=== PATIENT | female | born 1975 | race Caucasian/White ===

== ENCOUNTER 2016-08-20 05:49 | Day surgery (SDC) | payer OTHER ==
[2016-08-20] MEDS ORDERED: Lactated Ringers 1,000 ML IV SCH (06:30)
[2016-08-20] MEDS ORDERED: Zofran 4 MG/2 ML VIAL ONE (07:35)
[2016-08-20] MEDS ORDERED: DIPRIVAN 200 MG/20 ML IV ONE (08:00)
[2016-08-20] MEDS ORDERED: Ketamine HCl 50 MG/ML IJ ONE (08:00)
--- NOTE | 2016-08-20 08:22 | OP ---
SURGERY DATE: 08/20/16 SURGERY TIME: 713 PREOPERATIVE DIAGNOSIS: 1. GASTROESOPHAGEAL REFLUX STATUS POST GASTRIC BYPASS. POSTOPERATIVE DIAGNOSIS: 1. MODERATE GASTRITIS IN THE GASTRIC REMNANT. PROCEDURE: 1. Esophagogastroduodenoscopy with biopsy. SURGEON: Dr. Moore. ANESTHESIA: MAC, medications given by the Anesthesia Department. BRIEF HISTORY: The patient is a 41 y/o WF who presents now with severe epigastric pain. She reports problems with reflux into her esophagus as well. The patient reports she previously had an upper gastrointestinal endoscopy a few years ago at [facility] in [place] where a small ulcer was seen. The patient also reports having had gastric bypass surgery. The patient was felt to need to have endoscopic evaluation. She was appraised of the risks of the procedure including the risk of perforation, phlebitis, untoward reaction to medication, bleeding, and missed lesions. The patient verbalized her understanding and desired to have the procedure performed. DESCRIPTION OF PROCEDURE: The patient was given the medications by the Anesthesia Department. She had continuous pulse oximetry, ECG monitoring, intermittent BP monitoring, and end tidal CO2 monitoring during the examination. She was placed in the left lateral decubitus position. A bite block was placed and the flexible Olympus gastroscope was used to intubate the oropharynx. The esophagus was easily intubated and appeared to be normal throughout its length. The stomach was entered where there was a small gastric remnant pouch remaining. The scope was passed along into the duodenum which appeared to be normal. The scope was retroflexed and no significant hiatal hernia was noted. The scope was then redirected towards the gastric remnant and biopsies were obtained to rule out the presence of Helicobacter pylori type organisms. The scope was then removed from the patient who tolerated the procedure well and was sent back to outpatient recovery in good condition.
[2016-08-20 08:27] VITALS: BP 125/81; PULSE 72; O2SAT 99
== END 2016-08-20 08:30 | disposition home or self-care (01) ==
LOC: SDC 05:49
PROVIDERS: ATTEND Family Medicine
PROC: 0DB68ZX Excision of Stomach, Via Natural or Artificial Opening Endoscopic, Diagnostic (ICD-10-PCS; principal; 2016-08-20)
DX: K29.70 Gastritis, unspecified, without bleeding (principal); K21.9 Gastro-esophageal reflux disease without esophagitis; Z98.84 Bariatric surgery status
CPT/HCPCS: 00740; 36415; 88305; J2405; J2704

== ENCOUNTER 2016-10-18 09:51 | Emergency (ER) | payer OTHER ==
[2016-10-18] MEDS ORDERED: Hydromorphone 1 mg/ml Ampule IM ONE (10:52)
[2016-10-18] MEDS ORDERED: Phenergan 25 MG INJ IM ONE (10:53)
[2016-10-18] MEDS ORDERED: TORAdol 30 mg Injection IM ONE (10:54)
[2016-10-18] MEDS ORDERED: Phenergan 25 MG INJ ONE (11:01)
[2016-10-18] MEDS ORDERED: TORAdol 30 mg Injection ONE (11:01)
--- NOTE | 2016-10-18 11:01 | ERPHSYRPT ---
- History of Present Illness Time Seen by Provider: 10/18/16 10:45 Source: patient Exam Limitations: clinical condition Patient Subjective Stated Complaint: pt co increase pain to left side of back for last couple days. no injury noted, pt states she has taken roboxin,tylenol today, used heat last night Triage Nursing Assessment: pt alert and in no distress, resp easy, skin w/d, able to transfer from wc to bed Physician History: PATIENT WITH A HISTORY OF LOW BACK PAIN, COMPRESSION FRACTURE L-1, HAS CHRONIC LOW BACK PAIN, PROGRESSIVELY WORSE THE PAST 3-4 DAYS. DENIES INJURY OR TRAUMA, LOSS OF BOWEL OR BLADDER FUNCTION, NUMBNESS, TINGLING OR WEAKNESS IN EXTREMITIES. Timing/Duration: day(s) Method of Injury: unknown Quality: throbbing Back Pain Location: lumbar spine Severity of Pain-Max: severe Severity of Pain-Current: severe Modifying Factors: Improves With: movement Associated Symptoms: muscle spasms Previous symptoms: same symptoms as today Allergies/Adverse Reactions: latex Allergy (Severe, Verified 10/18/16 10:29) Hives Sulfa (Sulfonamide Antibiotics) [Sulfa(Sulfonamide Antibiotics)] Allergy ( Verified 10/18/16 10:29) PT STATES THIS AN ALLERGY BECAUSE OF EYE DROPS CAUSING IRRITATION-SHE HAS JUST TAKEN BACTRIM FOR UTI WITHOUT DIFFICULTY Home Medications: Alprazolam 1 mg [Xanax 1 mg] 2 mg PO HS 12/05/13 [History] Methocarbamol [Robaxin-750] 750 mg PO Q6H PRN 12/05/13 [History] Mirtazapine [Remeron] 45 mg PO HS 12/05/13 [History] Promethazine HCl 25 mg [Phenergan 25 mg] 25 mg PO Q4H PRN 12/05/13 [ History] Biot/Silicon/Cystein/Fish Poly [Haroldo R3 Extra Strength Tablet] 1 each PO DAILY 08/20/16 [History] Cetirizine HCl [Zyrtec] 10 mg PO DAILY 08/20/16 [History] Cholecalciferol (Vitamin D3) [D-2000] 5,000 unit PO DAILY 08/20/16 [History] Colchicine 0.6 mg PO DAILY 08/20/16 [History] Cyanocobalamin (Vitamin B-12) [Nascobal] 1 each NS WEEKLY 08/20/16 [History] Iron 65 mg PO DAILY 08/20/16 [History] Lisinopril 10 mg [Zestril 10 MG] 10 mg PO DAILY 08/20/16 [History] Hx Tetanus, Diphtheria Vaccination/Date Given: Yes Hx Influenza Vaccination/Date Given: No Hx Pneumococcal Vaccination/Date Given: No Immunizations Up to Date: Yes - Review of Systems Constitutional: No Fever, No Chills Eyes: No Symptoms Ears, Nose, & Throat: No Symptoms Respiratory: No Symptoms, No Cough, No Dyspnea Cardiac: No Symptoms, No Chest Pain, No Edema, No Syncope Abdominal/Gastrointestinal: No Symptoms, No Abdominal Pain, No Nausea, No Vomiting, No Diarrhea Genitourinary Symptoms: No Symptoms, No Dysuria Musculoskeletal: Back Pain, No Neck Pain Skin: No Symptoms, No Rash Neurological: No Dizziness, No Focal Weakness, No Sensory Changes Psychological: No Symptoms Endocrine: No Symptoms All Other Systems: Reviewed and Negative - Past Medical History Pertinent Past Medical History: Yes Neurological History: Migraines ENT History: No Pertinent History Cardiac History: Hypertension Respiratory History: No Pertinent History Endocrine Medical History: No Pertinent History Musculoskeletal History: No Pertinent History GI Medical History: Other History: No Pertinent History Psycho-Social History: Anxiety Female Reproductive Disorders: No Pertinent History Other Medical History: gastric bipass , states "backpain because of the heartburn" - Past Surgical History Past Surgical History: Yes Neuro Surgical History: No Pertinent History Cardiac: No Pertinent History Respiratory: No Pertinent History Gastrointestinal: Cholecystectomy, Other Genitourinary: No Pertinent History Musculoskeletal: No Pertinent History Female Surgical History: Hysterectomy, Section Other Surgical History: , gastric bipass 2013, - Social History Smoking Status: Never smoker Exposure to second hand smoke: No Drug Use: none Patient Lives Alone: No - Female History Hx Last Menstrual Period: hyster Hx Now: No - Nursing Vital Signs Temperature: 97.2 F Temperature Source: Oral Pulse Rate: 86 Respiratory Rate: 16 Pain Intensity: 8 - Physical Exam General Appearance: no apparent distress, alert Eye Exam: PERRL/EOMI, eyes nml inspection Neck Exam: normal inspection, non-tender, supple, full range of motion, No meningismus, No midline tenderness Respiratory Exam: normal breath sounds, lungs clear, No respiratory distress Cardiovascular Exam: regular rate/rhythm, normal heart sounds Gastrointestinal Exam: soft, normal bowel sounds, No tenderness, No mass Back Exam: normal inspection, vertebral tenderness, decreased range of motion, other (L-1 TO L-5 TENDERNESS, WITH LEFT PARASPINAL TENDERNESS, NO CVA TENDERNESS ) Extremity Exam: normal inspection, normal range of motion, No calf tenderness, No pedal edema Peripheral Pulses: carotid (R): 2+, carotid (L): 2+, femoral (R): 2+, femoral (L ): 2+, dorsalis-pedis (R): 2+ Neurologic Exam: alert, oriented x 3, cooperative, handtools repairer II-XII nml as tested, normal mood/affect, nml station & gait, sensation nml, No motor deficits Skin Exam: normal color, warm, dry, No rash SpO2 Interpretation: normal SpO2: 98 Oxygen Delivery: Room Air - Radiology Exams L-Spine X-ray Interpretation: Discussed w/ radiologist (WORSENING L5-S1, DEGENERATIVE DISC DISEASE, STABLE L1 ANTERIOR [place] DEFORMITY) Ordered Tests: Active Orders 24 hr Category Date Time Status LUMBAR COMPLETE (MIN 4 VIEWS) Stat Exams 10/18/16 10:55 Completed UA Stat Lab 10/18/16 11:20 Completed Urine Triage Profile Stat Lab 10/18/16 11:20 Completed Medication Summary Discontinued Medications Generic Name Dose Route Start Last Admin Trade Name Alirio PRN Reason Stop Dose Admin Hydromorphone HCl 1 mg 10/18/16 10:52 10/18/16 11:04 Hydromorphone 1 Mg/Ml Ampule IM 10/18/16 10:53 1 mg STAT ONE Administration Hydromorphone HCl Confirm 10/18/16 11:02 Hydromorphone 1 Mg/Ml Ampule Administered 10/18/16 11:03 Dose 1 mg .ROUTE .STK-MED ONE Ketorolac Tromethamine 60 mg 10/18/16 10:54 10/18/16 11:03 Toradol 30 Mg Injection IM 10/18/16 10:55 60 mg STAT ONE Administration Ketorolac Tromethamine Confirm 10/18/16 11:01 Toradol 30 Mg Injection Administered 10/18/16 11:02 Dose 60 mg .ROUTE .STK-MED ONE Promethazine HCl 25 mg 10/18/16 10:53 10/18/16 11:03 Phenergan 25 Mg Inj IM 10/18/16 10:54 25 mg STAT ONE Administration Promethazine HCl Confirm 10/18/16 11:01 Phenergan 25 Mg Inj Administered 10/18/16 11:02 Dose 25 mg .ROUTE .STK-MED ONE Lab/Rad Data: Laboratory Results 10/18/16 10/18/16 Range/Units 11:20 11:20 Ur Collection Type CLEAN CATCH Urine Color YELLOW (YELLOW) Urine Appearance CLOUDY (CLEAR) Urine pH 6.0 (5-6) Ur Specific [place] 1.010 (1.005-1.025) Urine Protein NEGATIVE (Negative) Urine Glucose (UA) NEGATIVE (NEGATIVE) mg/dL Urine Ketones NEGATIVE (NEGATIVE) Urine Nitrite NEGATIVE (NEGATIVE) Urine Bilirubin NEGATIVE (NEGATIVE) Urine Urobilinogen 0.2 (0-1) mg/dL Urine WBC (Auto) NEGATIVE (NEGATIVE) Urine RBC (Auto) NEGATIVE (0-5) Sai/ul Urine Opiates Level NEG. (NEGATIVE) Ur Methadone NEG. (NEGATIVE) Urine Barbiturates NEG. (NEGATIVE) Ur Phencyclidine (PCP) NEG. (NEGATIVE) Urine Amphetamine NEG. (NEGATIVE) U Benzodiazepine Level POS. (NEGATIVE) Urine Cocaine NEG. (NEGATIVE) Urine Marijuana (THC) NEG. (NEGATIVE) Specimen Received 10/18/16 0951 - Progress Progress: pain not gone completely Progress Note: 10/18/16 11:01 PATIENT GIVEN TORADOL 60MG IM, DILAUDID 1MG/PHENERGAN 25MG IM Counseled pt/family regarding: lab results, diagnosis, need for follow-up, rad results - Departure Time of Disposition: 12:00 Departure Disposition: Home Clinical Impression: CHRONIC LOW BACK PAIN, DEGENERATIVE DISC DISEASE Condition: Stable Critical Care Time: No Referrals: LIZZETTE FOSTER [Primary Care Provider] - Additional Instructions: CONTINUE ALL CURRENT MEDICATIONS. TORADOL 10MG EVERY 6 HOURS FOR PAIN NEEDED. FOLLOWUP YOUR HEALTH CARE PROVIDER LIZZETTE FOSTER AT 9:15AM TOMORROW FOR EVALUATION AND TREATMNDNT. RETURN TO WORK 10/20/2016.
[2016-10-18] MEDS ORDERED: Hydromorphone 1 mg/ml Ampule ONE (11:02)
[2016-10-18 11:32] LABS: Collection Type CLEAN CATCH
[2016-10-18 11:33] LABS: COMPLETE URINE MICROSCOPIC? NO
--- NOTE | 2016-10-18 11:38 | XRAY ---
Indication: Chronic low back pain radiating both hips and sacrum/coccyx. Comparison: February 04, 2009 5 views of the lumbar spine again demonstrates 5 lumbar vertebral segments with progressive worsening L5-S1 degenerative disc disease as evidenced by disc space loss and endplate spurring/sclerosis. Stable L1 anterior wedging deformity with now prominent inferior endplate spurring/sclerosis. Remaining vertebral body heights and disc spaces maintained. No acute fracture, subluxation, or pars interarticularis defect. New right upper quadrant cholecystectomy clips and left abdomen suture material. Incidental moderate scattered colonic fecal debris throughout including the rectum. Impression: 1. Worsening L5-S1 degenerative disc disease. 2. Stable L1 anterior wedging deformity. 3. Incidental fecal stasis without obstruction and note of previous surgery.
[2016-10-18 12:08] VITALS: BP 117/68; PULSE 81; O2SAT 95
== END 2016-10-18 12:07 | disposition home or self-care (01) ==
LOC: ED 09:51
DX: M54.5 Low back pain (principal); G89.29 Other chronic pain; M51.36 Other intervertebral disc degeneration, lumbar region; Z79.899 Other long term (current) drug therapy; I10 Essential (primary) hypertension
CPT/HCPCS: 72110; 80307; 81002; 99284; J1170; J1885; J2550

== ENCOUNTER 2018-03-20 09:16 | Observation (INO) | payer OTHER ==
[2018-03-20] MEDS ORDERED: BABY ASPIRIN 81 MG CHEW PO ONE (09:41)
[2018-03-20] MEDS ORDERED: Nitrostat 0.4 MG (ED) SL ONE ×2 (09:41→09:57)
[2018-03-20] MEDS ORDERED: Sodium Chloride 0.9% 1000 ML 1,000 ML IV SCH ×2 (09:45→12:00)
[2018-03-20] MEDS ORDERED: GI COCKTAIL 45 ML (Maalox/Lidocaine) PO ONE (09:46)
--- NOTE | 2018-03-20 09:53 | ERPHSYRPT ---
- History of Present Illness Time Seen by Provider: 03/20/18 09:30 Historian: patient Exam Limitations: clinical condition Patient Subjective Stated Complaint: Pt states "I am having chest pain and my back is killing me." Triage Nursing Assessment: Pt alert and oriented X 3, skin pwd. Pt ambulates with an upright steady gait, able to speak in clear full sentence. Pt in no apparent respiratory distress. Physician History: PATIENT WITH A HISTORY OF ASTHMA, HYPERTENSION, PREVIOUS GASTRIC BYPASS SURGERY COMPLAINS OF ACUTE ONSET OF LOWER STERNAL CHEST PAIN PRESSURE DISCOMFORT ONSET AT 2AM, PAIN SCALE 8/10. STATES PAIN RADIATES TO BACK ASSOCIATED WITH DYSPNEA. DENIES DIAPHORESIS OR PALPITATIONS. Timing/Duration: today Activities at Onset: none Quality: pressure Location: substernal Chest Pain Radiation: back Severity of Pain-Max: severe Severity of Pain-Current: severe Nitro Today/Relief: 0.4 mg x 2, provided by ED Aspirin Treatment Today: 81 mg x 4, provided by ED Allergies/Adverse Reactions: latex Allergy (Severe, Verified 10/18/16 10:29) Hives Sulfa (Sulfonamide Antibiotics) [Sulfa(Sulfonamide Antibiotics)] Allergy ( Verified 10/18/16 10:29) PT STATES THIS AN ALLERGY BECAUSE OF EYE DROPS CAUSING IRRITATION-SHE HAS JUST TAKEN BACTRIM FOR UTI WITHOUT DIFFICULTY Home Medications: Alprazolam 1 mg [Xanax 1 mg] 2 mg PO HS 12/05/13 [History] Methocarbamol [Robaxin-750] 750 mg PO Q6H PRN 12/05/13 [History] Mirtazapine [Remeron] 45 mg PO HS 12/05/13 [History] Promethazine HCl 25 mg [Phenergan 25 mg] 25 mg PO Q4H PRN 12/05/13 [ History] Cholecalciferol (Vitamin D3) [D-2000] 5,000 unit PO DAILY 08/20/16 [History] Colchicine 0.6 mg PO DAILY 08/20/16 [History] Cyanocobalamin (Vitamin B-12) [Nascobal] 1 each NS WEEKLY 08/20/16 [History] Iron 65 mg PO DAILY 08/20/16 [History] Lisinopril 10 mg [Zestril 10 MG] 10 mg PO DAILY 08/20/16 [History] Hx Tetanus, Diphtheria Vaccination/Date Given: Yes Hx Influenza Vaccination/Date Given: No Hx Pneumococcal Vaccination/Date Given: No Immunizations Up to Date: Yes - Review of Systems Constitutional: No Fever, No Chills Eyes: No Symptoms Ears, Nose, & Throat: No Symptoms Respiratory: Dyspnea, No Cough Cardiac: Chest Pain, No Edema, No Syncope Abdominal/Gastrointestinal: No Symptoms, No Abdominal Pain, No Nausea, No Vomiting, No Diarrhea Genitourinary Symptoms: No Symptoms, No Dysuria Musculoskeletal: No Symptoms, No Back Pain, No Neck Pain Skin: No Symptoms, No Rash Neurological: No Dizziness, No Focal Weakness, No Sensory Changes Psychological: No Symptoms Endocrine: No Symptoms All Other Systems: Reviewed and Negative - Past Medical History Pertinent Past Medical History: Yes Neurological History: Migraines ENT History: No Pertinent History Cardiac History: Hypertension Respiratory History: No Pertinent History Endocrine Medical History: No Pertinent History Musculoskeletal History: No Pertinent History GI Medical History: Other History: No Pertinent History Psycho-Social History: Anxiety Female Reproductive Disorders: No Pertinent History Other Medical History: PT. HAD GASTRIC BYPASS 3 YEARS AGO. - Past Surgical History Past Surgical History: Yes Neuro Surgical History: No Pertinent History Cardiac: No Pertinent History Respiratory: No Pertinent History Gastrointestinal: Cholecystectomy, Other Genitourinary: No Pertinent History Musculoskeletal: No Pertinent History Female Surgical History: Hysterectomy, Section Other Surgical History: , gastric bipass 2013, - Social History Smoking Status: Never smoker Exposure to second hand smoke: No Drug Use: none Patient Lives Alone: Yes - Female History Hx Last Menstrual Period: hysterectomy Hx Now: No - Nursing Vital Signs Nursing Vital Signs: Initial Vital Signs Temperature 98.5 F 03/20/18 09:19 Pulse Rate 88 03/20/18 09:19 Respiratory Rate 18 03/20/18 09:19 Blood Pressure 128/87 03/20/18 09:19 O2 Sat by Pulse Oximetry 98 03/20/18 09:19 Pain Scale Pain Intensity 2 - Physical Exam General Appearance: no apparent distress, alert Eye Exam: PERRL/EOMI, eyes nml inspection Ears, Nose, Throat Exam: normal ENT inspection, moist mucous membranes Neck Exam: normal inspection, non-tender, supple, full range of motion Respiratory Exam: normal breath sounds, chest tenderness (LOWER PARASTERNAL TENDERNESS T5-T-8), lungs clear, No respiratory distress Cardiovascular Exam: regular rate/rhythm, normal heart sounds Gastrointestinal/Abdomen Exam: soft, normal bowel sounds, No tenderness, No mass Back Exam: normal inspection, No CVA tenderness, No vertebral tenderness Extremity Exam: normal inspection, normal range of motion Neurologic Exam: alert, oriented x 3, cooperative, normal mood/affect, sensation nml, No motor deficits Skin Exam: normal color, warm, dry SpO2 Interpretation: normal SpO2: 98 Oxygen Delivery: Room Air - Course EKG Interpreted by Me: RATE, Sinus Rhythm, NORMAL AXIS - Radiology Exams Chest X-ray Interpretation: Discussed w/ radiologist (STABLE 9MM NODULAR DENSITY WITHIN CENTRAL LEFT LOWER LUNG FIELD DATING BACK TO CHEST FILMS SERIES FROM ), No Infiltrates Ordered Tests: Active Orders 24 hr Category Date Time Status Call Admit Doctor for Orders ON ADMISSION Care 03/20/18 11:51 Ordered Preventive Medicine Officer STAT Care 03/20/18 09:42 Active Code Status Order ROUTINE Care 03/20/18 11:50 Ordered EKG-ER Only STAT Care 03/20/18 09:41 Active IV Care Q6H Care 03/20/18 11:50 Ordered Oxygen-ED Only NASAL CANNULA 2 lpm Care 03/20/18 09:[address] in Observation ROUTINE Care 03/20/18 11:51 Ordered Telemetry ROUTINE Care 03/20/18 11:50 Ordered Vital Signs Q4H Care 03/20/18 11:50 Ordered Cardiac Diet Diet 03/20/18 Dinner Ordered CHEST 1 VIEW (PORTABLE) Stat Exams 03/20/18 09:42 Completed CBC W DIFF Stat Lab 03/20/18 10:00 Completed CMP Stat Lab 03/20/18 10:00 Completed D-DIMER QUANTITATION Stat Lab 03/20/18 10:00 Completed MAGNESIUM Stat Lab 03/20/18 10:00 Completed NT PRO BNP Stat Lab 03/20/18 10:00 Completed PROTIME WITH INR Stat Lab 03/20/18 10:00 Completed TROPONIN Q3H Lab 03/20/18 10:00 Completed TROPONIN Q3H Lab 03/20/18 12:45 Ordered TROPONIN Q3H Lab 03/20/18 15:45 Ordered TROPONIN Q3H Lab 03/20/18 18:45 Ordered TROPONIN Q3H Lab 03/20/18 21:45 Ordered Oxygen NASAL CANNULA 2 lpm RT 03/20/18 11:50 Ordered Transfer Order Routine Transfer 03/20/18 Ordered Medication Summary Generic Name Dose Route Start Last Admin Trade Name Freq PRN Reason Stop Dose Admin Acetaminophen 650 mg 03/20/18 11:50 Tylenol 325 Mg PO 04/19/18 11:49 Q4H PRN PRN PAIN AND/OR FEVER Albuterol/Ipratropium 3 ml 03/20/18 11:50 Duoneb 0.5-3 Mg/3 Ml Neb IH 04/19/18 11:49 Q4HPRN PRN SHORTNESS OF BREATH/WHEEZING Alprazolam 2 mg 03/20/18 22:00 Xanax 0.25 Mg PO 04/19/18 21:59 QHS JMAES Sodium Chloride 1,000 mls @ 100 mls/hr 03/20/18 09:45 03/20/18 10:21 Sodium Chloride 0.9% 1000 Ml IV 04/19/18 09:44 100 mls/hr .Q10H JAMES Administration Sodium Chloride 1,000 mls @ 50 mls/hr 03/20/18 12:00 Sodium Chloride 0.9% 1000 Ml IV 04/19/18 11:59 .Q20H JAMES Lisinopril 10 mg 03/21/18 10:00 Zestril 10 Mg PO 04/20/18 09:59 DAILY JAMES Mirtazapine 45 mg 03/20/18 22:00 Remeron 30 Mg PO 04/19/18 21:59 QHS JAMES Morphine Sulfate 4 mg 03/20/18 11:50 Morphine Sulfate 4 Mg Inj IV 03/25/18 11:49 Q4H PRN PRN PAIN Nitroglycerin 0.4 mg 03/20/18 11:54 Nitrostat 0.4 Mg Tablet SL 04/19/18 11:53 Q5MIN PRN MR X 3 PRN CHEST PAIN Ondansetron HCl 4 mg 03/20/18 11:50 Zofran 4 Mg/2 Ml Vial IV 04/19/18 11:49 Q6H PRN PRN NAUSEA/VOMITING Pantoprazole Sodium 40 mg 03/21/18 10:00 Protonix 40 Mg Iv IV 04/20/18 09:59 Q24H10 JAMES Discontinued Medications Generic Name Dose Route Start Last Admin Trade Name Alirio PRN Reason Stop Dose Admin Al Hydrox/Mg Hydrox/Simethicone Confirm 03/20/18 09:58 Maalox Es 30 Ml Unit Dose Administered 03/20/18 09:59 Dose 30 ml .ROUTE .STK-MED ONE Aspirin 324 mg 03/20/18 09:41 03/20/18 10:20 Baby Aspirin 81 Mg Chew PO 03/20/18 09:42 Not Given STAT ONE Lidocaine HCl Confirm 03/20/18 09:57 Xylocaine Hcl Viscous * Administered 03/20/18 09:58 Dose 15 ml .ROUTE .STK-MED ONE Magnesium Hydroxide 45 ml 03/20/18 09:46 03/20/18 10:21 Gi Cocktail 45 Ml (Maalox/Lidocaine) PO 03/20/18 09:47 45 ml STAT ONE Administration Nitroglycerin 0.4 mg 03/20/18 09:41 03/20/18 10:21 Nitrostat 0.4 Mg (Ed) SL 03/20/18 09:42 0.4 mg STAT ONE Administration Nitroglycerin Confirm 03/20/18 09:57 Nitrostat 0.4 Mg (Ed) Administered 03/20/18 09:58 Dose 0.4 mg SL .STK-MED ONE Lab/Rad Data: Laboratory Result Diagrams 03/20/18 10:00 03/20/18 10:00 Laboratory Results 03/20/18 03/20/18 03/20/18 Range/Units 10:00 10:00 10:00 WBC (4.0-10.5) K/mm3 RBC (4.1-5.4) M/mm3 Hgb (12.0-16.0) gm/dl Hct (35-47) % MCV (78-100) fl MCH (26-32) pg MCHC (32-36) g/dl RDW (11.5-14.0) % Plt Count (150-450) K/mm3 MPV (6-9.5) fl Gran % (36.0-66.0) % Eos # (Auto) (0-0.5) Absolute Lymphs (auto) (1.0-4.6) Absolute Monos (auto) (0.0-1.3) Lymphocytes % (24.0-44.0) % Monocytes % (0.0-12.0) % Eosinophils % (0.00-5.0) % Basophils % (0.0-0.4) % Absolute Granulocytes (1.4-6.9) Basophils # (0-0.4) PT 11.7 (9.95-12.35) SECONDS INR 1.01 (0.8-3.0) D-Dimer 306 (215-500) ng/mL Sodium (137-145) mmol/L Potassium (3.5-5.1) mmol/L Chloride (98-107) mmol/L Carbon Dioxide (22-30) mmol/L Anion Gap (5-15) MEQ/L BUN (7-17) mg/dL Creatinine (0.52-1.04) mg/dL Estimated GFR ML/MIN Glucose (74-106) mg/dL Calcium (8.4-10.2) mg/dL Magnesium 2.0 (1.6-2.3) mg/dL Total Bilirubin (0.2-1.3) mg/dL AST (14-36) U/L ALT (0-35) U/L Alkaline Phosphatase (38-126) U/L Troponin I < 0.012 (0.000-0.034) ng/mL NT-Pro-B Natriuret Pep (0-450) pg/mL Serum Total Protein (6.3-8.2) g/dL Albumin (3.5-5.0) g/dL 03/20/18 03/20/18 Range/Units 10:00 10:00 WBC 8.9 (4.0-10.5) K/mm3 RBC 4.62 (4.1-5.4) M/mm3 Hgb 13.8 (12.0-16.0) gm/dl Hct 42.6 (35-47) % MCV 92.2 (78-100) fl MCH 29.9 (26-32) pg MCHC 32.4 (32-36) g/dl RDW 13.0 (11.5-14.0) % Plt Count 247 (150-450) K/mm3 MPV 10.5 H (6-9.5) fl Gran % 65.7 (36.0-66.0) % Eos # (Auto) 0.10 (0-0.5) Absolute Lymphs (auto) 2.36 (1.0-4.6) Absolute Monos (auto) 0.59 (0.0-1.3) Lymphocytes % 26.4 (24.0-44.0) % Monocytes % 6.6 (0.0-12.0) % Eosinophils % 1.1 (0.00-5.0) % Basophils % 0.2 (0.0-0.4) % Absolute Granulocytes 5.87 (1.4-6.9) Basophils # 0.02 (0-0.4) PT (9.95-12.35) SECONDS INR (0.8-3.0) D-Dimer (215-500) ng/mL Sodium 141 (137-145) mmol/L Potassium 3.7 (3.5-5.1) mmol/L Chloride 107 (98-107) mmol/L Carbon Dioxide 23 (22-30) mmol/L Anion Gap 14.4 (5-15) MEQ/L BUN 14 (7-17) mg/dL Creatinine 0.54 (0.52-1.04) mg/dL Estimated GFR > 60.0 ML/MIN Glucose 94 (74-106) mg/dL Calcium 9.3 (8.4-10.2) mg/dL Magnesium (1.6-2.3) mg/dL Total Bilirubin 0.50 (0.2-1.3) mg/dL AST 424 H (14-36) U/L ALT 161 H (0-35) U/L Alkaline Phosphatase 125 (38-126) U/L Troponin I (0.000-0.034) ng/mL NT-Pro-B Natriuret Pep 47.1 (0-450) pg/mL Serum Total Protein 7.0 (6.3-8.2) g/dL Albumin 4.6 (3.5-5.0) g/dL - Progress Progress Note: 03/20/18 11:45 PAIN IMPROVED AFTER GI COCKTAIL AND NITROGLYCERIN 0.4MG SL Discussed with : Teresa (DISCUSSED WITH DR MCKENNA AT 1140 FOR OBSERVATION) - Departure Time of Disposition: 12:00 Departure Disposition: Observation Clinical Impression: ACUTE CHEST PAIN Condition: Stable Critical Care Time: No Referrals: LIZZETTE FOSTER [Primary Care Provider] -
[2018-03-20] MEDS ORDERED: XYLOCAINE HCl Viscous ONE (09:57)
[2018-03-20] MEDS ORDERED: MAALOX ES 30 ML UNIT DOSE ONE (09:58)
[2018-03-20 09:59] LABS: BASOPHIL % 0.2 % (0.0-0.4); Basophil (Absolute #) 0.02 (0-0.4); Eosinophil % 1.1 % (0.00-5.0); Granulocyte Absolute (ANC) 5.87 (1.4-6.9); Granulocytes % 65.7 % (36.0-66.0); Hematocrit 42.6 % (35-47); Hemoglobin 13.8 gm/dl (12.0-16.0); Lymphocyte (Absolute #) 2.36 (1.0-4.6); Lymphocytes % 26.4 % (24.0-44.0); Mean Cell Volume 92.2 fl (78-100); Mean Corpuscular Hemoglobin 29.9 pg (26-32); Mean Corpuscular Hgb Concent. 32.4 g/dl (32-36); Mean Platelet Volume 10.5 fl (6-9.5); Monocyte (Absolute #) 0.59 (0.0-1.3); Monocytes % 6.6 % (0.0-12.0); Platelet Count 247 K/mm3 (150-450); Red Blood Count 4.62 M/mm3 (4.1-5.4); White Blood Count 8.9 K/mm3 (4.0-10.5)
[2018-03-20 10:21] LABS: INR 1.01 (0.8-3.0)
[2018-03-20 10:35] LABS: ALBUMIN 4.6 g/dL (3.5-5.0); ALKALINE PHOSPHATASE 125 U/L (38-126); ANION GAP 14.4 MEQ/L (5-15); BLOOD UREA NITROGEN 14 mg/dL (7-17); CHLORIDE 107 mmol/L (98-107); Calcium 9.3 mg/dL (8.4-10.2); Carbon Dioxide 23 mmol/L (22-30); Creatinine 1 0.54 mg/dL (0.52-1.04); Glucose 94 mg/dL (74-106); NT PRO BNP 47.1 pg/mL (0-450); Potassium 3.7 mmol/L (3.5-5.1); SGOT/AST 424 U/L (14-36); SGPT/ALT 161 U/L (0-35); SODIUM 141 mmol/L (137-145)
--- NOTE | 2018-03-20 10:55 | XRAY ---
Exam: AP upright portable chest film from 03/20/2018. Comparison: Two-view chest from 12/25/2013. Indication: Chest pain, dyspnea. Findings: The heart size and contour are normal. The jamaal and mediastinal structures appear unremarkable. There is average inflation of the lungs. No air space infiltrates, pulmonary vascular congestion, pneumothorax, or pleural fluid is seen. There is a potential 8 mm nodule within the central left lower lung field adjacent to the anterior margin of the left fourth rib. It is also possible this represents superimposition of normal structures. In retrospect, I believe I can detect this nodular density on a PA chest film from 07/29/2012. Therefore, this is likely benign or nonaggressive. There is subtle deformity of the anterior lateral aspect of the right second, third, and fourth ribs which may be due to old healed fractures. I see no definite acute fracture. The remainder the bones appear intact. EKG leads are seen in place. Impression: 1. No air space infiltrates, heart failure, or other acute cardiopulmonary disease is seen. 2. Stable 9 mm nodular density within central left lower lung field adjacent to anterior margin of the left fourth rib. This can be seen dating back to a 2 view chest films series from 07/29/2012 suggesting a nonaggressive or benign process. In retrospect, this may represent a subpleural 9-10 mm oval nodular density at the posterior aspect of the left lung base on axial image #[address] of the abdomen dated 07/07/2010. 3. There is a suggestion of several old healed rib fracture deformities of the anterior lateral right second, third, and fourth ribs. I don't believe this represents a change.
[2018-03-20] MEDS ORDERED: DUONEB 0.5-3 MG/3 ml Neb IH PRN (11:50)
[2018-03-20] MEDS ORDERED: Zofran 4 MG/2 ML VIAL IV PRN (11:50)
[2018-03-20] MEDS ORDERED: TYLENOL 325 MG PO PRN (11:50)
[2018-03-20] MEDS ORDERED: MORPHINE SULFATE 4 MG INJ IV PRN (11:50)
[2018-03-20] MEDS ORDERED: Nitrostat 0.4 MG Tablet SL PRN (11:54)
[2018-03-20] MEDS ORDERED: Zestril 10 MG PO SCH (12:30)
[2018-03-20] MEDS ORDERED: PROTONIX 40 MG IV IV SCH (12:30)
[2018-03-20] MEDS ORDERED: METHOCARBAMOL 750 MG PO PRN (14:46)
[2018-03-20] MEDS ORDERED: Robaxin 500 MG PO PRN (14:51)
[2018-03-20] MEDS ORDERED: Zestril 20 MG PO SCH ×2 (15:00→22:00)
[2018-03-20] MEDS ORDERED: PHENERGAN 25 MG PO PRN (15:00)
[2018-03-20] MEDS ORDERED: CYANOCOBALAMIN NS SCH (15:00)
[2018-03-20] MEDS ORDERED: MEDICATION INTERVENTION MC SCH (15:15)
[2018-03-20] MEDS ORDERED: MEDICATION INTERVENTION PO SCH ×2 (15:15)
[2018-03-20 15:47] LABS: AMYLASE 43 U/L (30-110); LIPASE 41 U/L (23-300)
[2018-03-20] MEDS ORDERED: NORCO 7.5/325 MG TAB PO PRN (16:07)
--- NOTE | 2018-03-20 17:47 | XRAY ---
Exam: CT of the abdomen and pelvis without IV contrast from 03/20/2018. CTDI: 23.68 Comparison: CT of the abdomen and pelvis with IV contrast from 07/07/2010. Indication: The patient has a history of prior gastric bypass surgery, section, hysterectomy, and cholecystectomy. The patient presents with abdominal pain. Technique: Non-IV contrast axial images were obtained through the abdomen and pelvis. Reconstructed coronal and sagittal images were created and reviewed. Findings: There is mild relative elevation of the right hemidiaphragm with respect to the left hemidiaphragm on the [facility] customer care specialist film representing no change. The lung bases reveal a subpleural calcified granuloma at the posterior lateral left lung base. Minimal linear atelectasis or scarring is seen at the posterior lateral right lung base. There appears to be a mild retrocardiac hiatal hernia. Wall thickness at the level mild hernia is slightly prominent measuring up to 6 mm in diameter. Correlate clinically. I cannot exclude a tiny anterior pericardial effusion on axial image #8. In addition, there is multiple surgical suture material within the medial aspect of the left upper quadrant as well as the lower left hemiabdomen due to prior interval gastric bypass surgery. No oral contrast was given, although I see a small amount of apparent medication density within bowel in the pelvis. I see no evidence of bowel distention/obstruction or other significant bowel wall thickening. The liver appears unremarkable on this non-IV contrast scan. Surgical clips consistent with prior cholecystectomy are seen within the right upper quadrant. No definite intrahepatic biliary duct distention is seen. Spleen appears of unremarkable size and reveals numerous calcified granulomas within it. I again identify a tiny low-attenuation lesion within the upper posterior medial margin of the spleen, best seen on axial image #19. This is no larger than that seen on 07/07/2010 and most likely represents a small splenic cyst. The pancreas appears unremarkable. The adrenal glands appear unremarkable. Both kidneys appear of normal size. There is an 8 mm low-attenuation lesion abutting the lower pole of the right kidney on axial image #42 which likely represents a small renal cortical cyst. This is not definitely seen on the exam from 07/07/2010. Its attenuation value is below 0. No other definite solid renal mass, hydronephrosis, or renal calculi are seen. The ureters reveal no suspicious distention or ureteral calculi. The abdominal aorta is of normal diameter. No abnormal retroperitoneal lymphadenopathy is seen. There is no free intraperitoneal air. No ventral bowel containing hernia is seen. A tiny amount of protrusion of intraperitoneal fat into the subcutaneous fat is seen on sagittal image #96 at the level the umbilicus. This is consistent with a tiny fat-containing umbilical hernia. The appendix appears unremarkable. The pelvis reveals evidence of prior hysterectomy. Small calcified phleboliths are seen within the lower pelvis on each side of midline. The pelvic adnexa appear unremarkable. Minimal sigmoid colon diverticulosis without evidence of diverticulitis is seen. The urinary bladder appears unremarkable. There is no free intraperitoneal fluid. No enlarged pelvic lymph nodes are seen. The femoral regions appear unremarkable. Skeleton reveals no acute fracture or aggressive bone lesion. There is mild anterior wedging of the L1 vertebral body which is unchanged from 10/18/2016, i.e. chronic. Mild anterior vertebral endplate spurring is seen within the lower thoracic spine and at L1-L2. I also see evidence of mild degenerative disc disease at L5-S1 with mild left paracentral disc bulge/herniation on axial image #60. This appears a bit more prominent than that seen on axial image #40 from 07/07/2010. Correlate clinically. Impression: 1. The patient is status post gastric bypass surgery, cholecystectomy, and hysterectomy. The appendix appears unremarkable. 2. I see no evidence of bowel obstruction. A small amount of scattered density is seen within the pelvic bowel, likely representing medication. No free air or free fluid is seen. 3. I believe there are some minimal sigmoid colon diverticulosis without evidence of diverticulitis. There also is a suggestion of a small hiatal hernia with some thickening of the wall about the hiatal hernia sac. See axial image #13. 4. No other acute process is seen within the abdomen or pelvis. I see no evidence of acute obstructive uropathy. 5. Skeletal findings, as discussed above.
[2018-03-20] MEDS ORDERED: XANAX 1 MG ONE (19:49)
[2018-03-20] MEDS ORDERED: VITAMIN D PO ONE (19:50)
[2018-03-20] MEDS ORDERED: REMERON 30 MG ONE (19:50)
[2018-03-20] MEDS ORDERED: Zestril 20 MG ONE (19:50)
[2018-03-20] MEDS ORDERED: XANAX 1 MG PO SCH ×2 (22:00)
[2018-03-20] MEDS ORDERED: REMERON 30 MG PO SCH (22:00)
[2018-03-20] MEDS ORDERED: CHOLECALCIFEROL 5000 UNIT PO SCH (22:00)
[2018-03-20] MEDS ORDERED: VITAMIN D PO SCH (22:00)
[2018-03-20] MEDS ORDERED: xanAX 0.25 MG PO SCH (22:00)
[2018-03-21 06:13] LABS: Hematocrit 39.9 % (35-47); Hemoglobin 12.8 gm/dl (12.0-16.0); Mean Cell Volume 92.8 fl (78-100); Mean Corpuscular Hemoglobin 29.8 pg (26-32); Mean Corpuscular Hgb Concent. 32.1 g/dl (32-36); Mean Platelet Volume 11.1 fl (6-9.5); Platelet Count 223 K/mm3 (150-450); White Blood Count 6.7 K/mm3 (4.0-10.5)
[2018-03-21 06:25] LABS: ALBUMIN 3.7 g/dL (3.5-5.0); ALKALINE PHOSPHATASE 121 U/L (38-126); ANION GAP 10.6 MEQ/L (5-15); BLOOD UREA NITROGEN 13 mg/dL (7-17); CHLORIDE 105 mmol/L (98-107); Calcium 8.9 mg/dL (8.4-10.2); Carbon Dioxide 27 mmol/L (22-30); Creatinine 1 0.54 mg/dL (0.52-1.04); Glucose 93 mg/dL (74-106); Potassium 3.9 mmol/L (3.5-5.1); SGOT/AST 119 U/L (14-36); SGPT/ALT 204 U/L (0-35); SODIUM 139 mmol/L (137-145)
[2018-03-21 06:30] VITALS: BP 114/62; PULSE 71; O2SAT 97
--- NOTE | 2018-03-21 08:49 | PCM.DCORD ---
- Discharge Discharge Date: 03/21/18 Prescriptions: Continue Methocarbamol [Robaxin-750] 750 mg PO Q4H PRN PRN PRN Reason: Pain Mirtazapine [Remeron] 45 mg PO HS Promethazine HCl 25 mg [Phenergan 25 mg] 25 mg PO Q4H PRN Cyanocobalamin (Vitamin B-12) [Nascobal] 1 each NS WEEKLY Lisinopril 10 mg [Zestril 10 MG] 20 mg PO HS Colchicine 0.6 mg PO DAILY Hydrocodone/Acetaminophen [Vincent 7.5-325 Tablet] 1 each PO BID PRN PRN PRN Reason: Pain Alprazolam [Xanax] 2 mg PO BID Biotin 500 mg PO BID Cholecalciferol (Vitamin D3) [Vitamin D3] 5,000 unit PO BID Changed PANTOPRAZOLE 40 mg Tablet [Protonix 40MG Tablet] 80 mg PO QAM 30 Days # 0 tab Instructions: [place] Diet, Gastritis (DC), Upper GI Endoscopy (DC) Follow up with: EARL MCKENNA [ACTIVE STAFF] - 03/28/18 10:00 am Forms: Discharge Instructions
[2018-03-21] MEDS ORDERED: Ketamine HCl 50 MG/ML IJ ONE (09:41)
[2018-03-21] MEDS ORDERED: DIPRIVAN 200 MG/20 ML IV ONE (09:41)
[2018-03-21] MEDS ORDERED: COLCHICINE 0.6 MG PO SCH (10:00)
[2018-03-21] MEDS ORDERED: Protonix 40MG Tablet PO SCH (10:00)
--- NOTE | 2018-03-21 10:45 | OP ---
SURGERY DATE/TIME: 03/21/2018 0710 PREOPERATIVE DIAGNOSIS: Epigastric pain status post gastric bypass. POSTOPERATIVE DIAGNOSIS: Gastritis epigastric remnant otherwise normal exam. PROCEDURE: Esophagogastroduodenoscopy. SURGEON: Dr. Moore. ANESTHESIA: Medications were given by the anesthesia department. BRIEF HISTORY: The patient is a 42 year old white female who had been admitted to the hospital for severe epigastric pain radiating down to her back. The patient reports she previously had a cholecystectomy years ago. She has also had gastric bypass for weight loss surgery. She previously had upper endoscopy approximately 18 months ago where small ulcer was found. The patient has been having increasing epigastric pain recently and increased on her omeprazole. However she presented with severe epigastric pain radiating through to her back to the emergency room and was admitted to the hospital. She was felt the need to have endoscopic evaluation. She was appraised the risks of the procedure including the risk of perforation, phlebitis, untoward reaction to medication, bleeding and missed lesions. The patient verbalized her understanding and desired to have the procedure performed. DESCRIPTION OF PROCEDURE: The patient was given medications by the anesthesia department. She had continuous pulse oximetry, ECG monitoring, intermittent blood pressure monitoring and tidal CO2 monitoring during the examination. She was placed in the left lateral decubitus position. A bite block was placed and the flexible Olympus gastroscope was used to intubate the oropharynx. The scope was easily introduced in the esophagus which appeared to be normal throughout its length. The stomach was entered. There was small gastric remnant remaining which appeared to be somewhat erythematous and friable upon biopsy. Biopsies were obtained to rule out the presence of Helicobacter pylori-type organisms. No ulcerations or erosions were encountered. The small bowel was examined to approximately 25 cm length past the stomach and appeared to have no abnormal appearance. The scope was removed from the patient who tolerated the procedure well and sent back to the [facility] in good condition.
--- NOTE | 2018-03-21 12:46 | SSS ---
DISCHARGE DIAGNOSIS: GASTRITIS. OPERATIVE PROCEDURE: EGD. HISTORY: The patient is a 42 year-old white female who presented with complaints of epigastric pain. She has been having problems with epigastric pain over the past few weeks. She has been seen as an outpatient and increased on omeprazole. However her insurance is giving her grief about her prescriptions. The patient has previously had upper endoscopy approximately 18 months ago which showed a small ulcer. She has previously had gastric bypass surgery for weight loss. She had cholecystectomy performed in the past as well. The patient was initially seen in the emergency room and was complaining of severe epigastric pain radiating up into the chest and through to the back. The emergency room was concerned and wished her to be ruled out for myocardial infarction although she has never had any previous heart problems. MEDICATIONS: Her home medications include Alprazolam 2 mg at night, Robaxin 750 mg every six hours PRN for back pain, Remeron 45 mg at night, Phenergan every six hours PRN for nausea. She takes vitamin D 5,000 units daily, colchicine, vitamin B12, iron and lisinopril for blood pressure. ALLERGIES: LASIX, SULFA. PHYSICAL EXAMINATION: Revealed a well-nourished, well-developed 42 year-old white female in no obvious distress at this time. Vital signs on release showed a temperature of 98.1F, pulse 72, respiratory rate 16, blood pressure 102/65. O2 saturation 98%. HEENT: Normocephalic, atraumatic. Pupils equal round reactive to light. Extraocular movements intact. Oropharynx is pink and moist. NECK: Supple without lymphadenopathy, thyromegaly or JVD. CHEST: Clear to auscultation with good air movement bilaterally. HEART: Regular rate and rhythm without murmurs, rubs or gallops. ABDOMEN: Somewhat tender in the epigastric region but no masses were felt and was essentially no guarding or rebound. EXTREMITIES: Without clubbing, cyanosis or edema. NEUROLOGIC: The patient is alert and oriented x3. LAB DATA AND TESTS: The patient's laboratory studies did show an elevation in her SGOT and SGPT initially. AST of 424 dropping down to 119 by the next day. Her amylase and lipase however were normal as were her electrolytes. Her BUN and creatinine were normal at 13 and 0.54m respectively. Her glucose was 93 fasting. Her hemoglobin was 12.8, white blood cell count 6,700, PLT count 223,000. The patient did have CT scans of the abdomen and pelvis which were essentially negative showing the previous surgeries but otherwise no other problems were noted. HOSPITAL COURSE: The patient received fluids and essentially treated for her pain with a GI cocktail and Nitro which did resolve the problems somewhat. Her troponins were all less than 0.012. She received an EGD on the morning of 03/21/2018 which had showed some gastritis. Biopsies were obtained. The patient was felt to be ready for discharge home afterwards. She was instructed to double up on the omeprazole 40 mg twice a day and return to the office in one week for further evaluation and management. She is to return to the hospital if she has any further problems in the interim.
== END 2018-03-21 09:42 | disposition home or self-care (01) ==
LOC: ED 09:16 → MED SURG 12:09
PROVIDERS: ADMIT Family Medicine; ATTEND Family Medicine
DX: K29.70 Gastritis, unspecified, without bleeding (principal); Z98.84 Bariatric surgery status; Z87.11 Personal history of peptic ulcer disease; Z90.49 Acquired absence of other specified parts of digestive tract
CPT/HCPCS: 36415; 71045; 74176; 80053; 82150; 83690; 83735; 83880; 84484; 85025; 85027; 85379; 85610; 88305; 93005; 93041; 93268; 94760; 96360; 99285; G0378; J2704; A9270-GY

== ENCOUNTER 2018-07-14 08:26 | Emergency (ER) | payer OTHER ==
[2018-07-14] MEDS ORDERED: Sodium Chloride 0.9% 1000 ML 1,000 ML IV SCH (09:00)
[2018-07-14] MEDS ORDERED: Zofran 4 MG/2 ML VIAL IV ONE (09:00)
--- NOTE | 2018-07-14 09:07 | ERPHSYRPT ---
- History of Present Illness Time Seen by Provider: 07/14/18 08:45 Source: patient Exam Limitations: clinical condition Patient Subjective Stated Complaint: pt here for headache to back of head since yesterday, it is like her normal headaches, with nausea Triage Nursing Assessment: pt alert, resp easy, skin w/d/p.no edema. walked in Physician History: PATIENT HISTORY OF GASTRIC BYPASS, GOUTY ARTHRITIS, HYPERTSION. MIGRAINE HEADACHES FOR 30 YEARS, COMPLAINS OF FRONTAL AN OCCIPITAL HEADACHE SINCE YESTERDAY. PATIENT RATES HER PAIN A 7/10 SCALE, HAS ASSOCIATED PHOTOPHOBIA, NAUSEA, DRY HEAVES, AND ONE EPISODE OF EMESIS. PATIENT. DENIES FEVER BLURRED VISION, NECK STIFFNESS. Timing/Duration: yesterday Quality: throbbing Head Pain Location: frontal, occipital Severity of Pain-Max: moderate Severity of Pain-Current: moderate Recent Head Trauma: no recent headache/trauma Modifying Factors: Improves With: exposure to light Associated Symptoms: nausea/vomiting, sensitive to light Previous symptoms: same symptoms as today Allergies/Adverse Reactions: latex Allergy (Severe, Verified 03/20/18 14:55) Hives Sulfa (Sulfonamide Antibiotics) [Sulfa(Sulfonamide Antibiotics)] Allergy ( Verified 03/20/18 14:55) PT STATES THIS AN ALLERGY BECAUSE OF EYE DROPS CAUSING IRRITATION-SHE HAS JUST TAKEN BACTRIM FOR UTI WITHOUT DIFFICULTY Home Medications: Methocarbamol [Robaxin-750] 750 mg PO Q4H PRN PRN 12/05/13 [History] Mirtazapine [Remeron] 45 mg PO HS 12/05/13 [History] Promethazine HCl 25 mg [Phenergan 25 mg] 25 mg PO Q4H PRN 12/05/13 [ History] Colchicine 0.6 mg PO DAILY 08/20/16 [History] Alprazolam [Xanax] 2 mg PO BID 03/20/18 [History] Biotin 500 mg PO BID 03/20/18 [History] Cholecalciferol (Vitamin D3) [Vitamin D3] 5,000 unit PO BID 03/20/18 [History] Hydrocodone/Acetaminophen [Esparto 7.5-325 Tablet] 1 each PO BID PRN PRN 03/20/18 [History] Mirtazapine [Remeron] 45 mg DAILY 07/14/18 [History] Hx Tetanus, Diphtheria Vaccination/Date Given: Yes Hx Influenza Vaccination/Date Given: No Hx Pneumococcal Vaccination/Date Given: No Immunizations Up to Date: Yes - Review of Systems Constitutional: No Fever, No Chills Eyes: No Symptoms Ears, Nose, & Throat: No Symptoms Respiratory: No Symptoms, No Cough, No Dyspnea Cardiac: No Symptoms, No Chest Pain, No Edema, No Syncope Abdominal/Gastrointestinal: Nausea, Vomiting, No Abdominal Pain, No Diarrhea Genitourinary Symptoms: No Dysuria Musculoskeletal: No Symptoms, No Back Pain, No Neck Pain Skin: No Symptoms, No Rash Neurological: Headache, No Dizziness, No Focal Weakness, No Sensory Changes Psychological: No Symptoms Endocrine: No Symptoms All Other Systems: Reviewed and Negative - Past Medical History Pertinent Past Medical History: Yes Neurological History: Migraines ENT History: No Pertinent History Cardiac History: Hypertension Respiratory History: No Pertinent History Endocrine Medical History: No Pertinent History Musculoskeletal History: No Pertinent History GI Medical History: Other History: No Pertinent History Psycho-Social History: Anxiety Female Reproductive Disorders: No Pertinent History Other Medical History: PT. HAD GASTRIC BYPASS 3 YEARS AGO. - Past Surgical History Past Surgical History: Yes Neuro Surgical History: No Pertinent History Cardiac: No Pertinent History Respiratory: No Pertinent History Gastrointestinal: Cholecystectomy, Other Genitourinary: No Pertinent History Musculoskeletal: No Pertinent History Female Surgical History: Hysterectomy, Section Other Surgical History: , gastric bipass 2013, - Social History Smoking Status: Never smoker Exposure to second hand smoke: No Drug Use: none Patient Lives Alone: No - Female History Hx Last Menstrual Period: hyster Hx Now: No - Nursing Vital Signs Nursing Vital Signs: Initial Vital Signs Temperature 97.2 F 07/14/18 08:30 Pulse Rate 91 H 07/14/18 08:30 Respiratory Rate 16 07/14/18 08:30 Blood Pressure 123/93 07/14/18 08:30 O2 Sat by Pulse Oximetry 97 07/14/18 08:30 Pain Scale Pain Intensity 7 - Physical Exam General Appearance: no apparent distress, mild distress Eye Exam: PERRL/EOMI Ears, Nose, Throat Exam: normal ENT inspection, moist mucous membranes, other ( THERE IS NO PERCUSSION TENDERNESS OVER THE MAXILLARY OR FRONTAL SINUSES) Neck Exam: normal inspection, supple, full range of motion, No meningismus Respiratory Exam: normal breath sounds, lungs clear Cardiovascular Exam: regular rate/rhythm, normal heart sounds Gastrointestinal/Abdominal Exam: soft, normal bowel sounds, No tenderness, No distention Back Exam: normal inspection, normal range of motion Extremity Exam: normal inspection, normal range of motion Mental Status Exam: alert, oriented x 3, cooperative superintendent container terminal Exam: normal speech, PERRL, No facial droop Coordination/Gait Exam: normal cerebellar function Motor/Sensory Exam: no motor deficit, no sensory deficit DTR Exam: bicep (R): 2+, bicep (L): 2+, tricep (R): 2+, tricep (L): 2+, knee (R) : 2+, knee (L): 2+, ankle (R): 2+, ankle (L): 2+ Skin Exam: normal color, warm, dry, No rash SpO2 Interpretation: normal SpO2: 97 Oxygen Delivery: Room Air - CT Exams Head CT Interpretation: Discussed w/radiologist, No/Intracranial Hemorrhag Ordered Tests: Active Orders 24 hr Category Date Time Status IV Insertion STAT Care 07/14/18 09:34 Active HEAD WITHOUT CONTRAST [CT] Stat Exams 07/14/18 09:01 Completed Medication Summary Generic Name Dose Route Start Last Admin Trade Name Freq PRN Reason Stop Dose Admin Sodium Chloride 1,000 mls @ 250 mls/hr 07/14/18 09:00 07/14/18 09:25 Sodium Chloride 0.9% 1000 Ml IV 08/13/18 08:59 250 mls/hr .Q4H JAMES Administration Discontinued Medications Generic Name Dose Route Start Last Admin Trade Name Freq PRN Reason Stop Dose Admin Ketorolac Tromethamine 30 mg 07/14/18 09:10 07/14/18 09:25 Toradol 30 Mg Injection IV 07/14/18 09:11 30 mg STAT ONE Administration Ketorolac Tromethamine Confirm 07/14/18 09:22 Toradol 30 Mg Injection Administered 07/14/18 09:23 Dose 30 mg .ROUTE .STK-MED ONE Morphine Sulfate 4 mg 07/14/18 10:06 07/14/18 10:42 Morphine Sulfate 4 Mg Inj IV 07/14/18 10:07 4 mg STAT ONE Administration Morphine Sulfate Confirm 07/14/18 10:41 Morphine Sulfate 4 Mg Inj Administered 07/14/18 10:42 Dose 4 mg .ROUTE .STK-MED ONE Ondansetron HCl 4 mg 07/14/18 09:00 07/14/18 09:26 Zofran 4 Mg/2 Ml Vial IV 07/14/18 09:01 4 mg STAT ONE Administration Ondansetron HCl Confirm 07/14/18 09:22 Zofran 4 Mg/2 Ml Vial Administered 07/14/18 09:23 Dose 4 mg .ROUTE .STK-MED ONE - Progress Progress: improved Progress Note: 07/14/18 10:07 IV normal saline 250ML/hour , Zofran 4 mg, Toradol 30 mg IV with a scale to 3/ 10. Patient given morphine 4mg IV, the head CT scan without IV contrast was stable and normal Counseled pt/family regarding: lab results, diagnosis, need for follow-up - Departure Time of Disposition: 11:34 Departure Disposition: Home Clinical Impression: ACUTE MIGRAINE CEPHALGIA Condition: Stable Critical Care Time: No Referrals: LIZZETTE FOSTER [Primary Care Provider] - Additional Instructions: BEGIN A CLEAR LIQUID DIET FOR THE FIRST 24 HOURS TOLERATED. ZOFRAN 4 MG EVERY 6 HOURS NEEDED FOR NAUSEA, IF NOT CONTROLLED BEGAN SUPPOSITORY 25 MG PER RECTUM EVERY 6 HOURS NEEDED. CONSULT YOUR PRIMARY CARE PROVIDER FOR REFERRAL TO A NEUROLOGIST. Prescriptions: Ondansetron ODT 4 MG [Zofran Odt 4 mg] 4 mg PO Q6H PRN PRN #10 tab.rapdis PRN Reason: NAUSEA, VOMITING Promethazine HCl 25 mg Supp [Phenergan 25 mg Supp] 25 mg NV Q4-6HPRN PRN # 10 supp.rect PRN Reason: Nausea
[2018-07-14] MEDS ORDERED: TORAdol 30 mg Injection IV ONE (09:10)
[2018-07-14] MEDS ORDERED: Sodium Chloride 0.9% 1000 ML 1,000 ML ONE (09:22)
[2018-07-14] MEDS ORDERED: TORAdol 30 mg Injection ONE (09:22)
[2018-07-14] MEDS ORDERED: Zofran 4 MG/2 ML VIAL ONE (09:22)
--- NOTE | 2018-07-14 09:41 | XRAY ---
Indication: Severe headache. History migraines. Multiple contiguous axial images obtained through the head without contrast. Comparison: July 29, 2012. Again normal appearing brain parenchyma, ventricles, and bony calvarium. Visualized paranasal sinuses and mastoid air cells are clear. Impression: Stable normal CT head without contrast exam. CT DI 67.99
[2018-07-14] MEDS ORDERED: MORPHINE SULFATE 4 MG INJ IV ONE (10:06)
[2018-07-14] MEDS ORDERED: MORPHINE SULFATE 4 MG INJ ONE (10:41)
[2018-07-14 11:43] VITALS: BP 115/79; PULSE 72; O2SAT 95
== END 2018-07-14 11:46 | disposition home or self-care (01) ==
LOC: ED 08:26
DX: G43.909 Migraine, unspecified, not intractable, without status migrainosus (principal); R11.2 Nausea with vomiting, unspecified; Z79.899 Other long term (current) drug therapy
CPT/HCPCS: 36000; 70450; 96360; 96374; 96375; 99284; J1885; J2270; J2405

== ENCOUNTER 2018-07-17 15:07 | Emergency (ER) | payer OTHER ==
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
[2018-07-17 17:24] VITALS: BP 134/91; PULSE 102; O2SAT 97
== END 2018-07-17 17:35 | disposition home or self-care (01) ==
LOC: ED 15:07
DX: R41.0 Disorientation, unspecified (principal); E16.2 Hypoglycemia, unspecified; S00.512A Abrasion of oral cavity, initial encounter; S00.83XA Contusion of other part of head, initial encounter; V47.5XXA Car driver injured in collision with fixed or stationary object in traffic accident, initial encounter
CPT/HCPCS: 82962; 99283

== ENCOUNTER 2018-12-26 10:17 | Emergency (ER) | payer OTHER ==
[2018-12-26] MEDS ORDERED: Sodium Chloride 0.9% 1000 ML 1,000 ML IV STA (10:59)
--- NOTE | 2018-12-26 11:04 | ERPHSYRPT ---
- History of Present Illness Time Seen by Provider: 12/26/18 10:55 Source: patient Exam Limitations: no limitations Patient Subjective Stated Complaint: pt here for not feeling well for a few days , she co dizziness off and on,she feels like she going to have a seizure, unsteady at home, she has had this problem before. she is worried her bs is going to drop Triage Nursing Assessment: pt alert, walked in, gait steady , resp easy, skin w/ d/p. no edema, pt texting on phone when nurse walked in Physician History: 43-year-old white female with history of migraines, high blood pressure, anxiety , gastric bypass, hypoglycemia. Patient arrives with complaint of 4-5 days where she just hasn't felt well she states that she felt somewhat dizzy felt like she might faint. She has not had any movement problems she just feels off. She apparently had an appointment with her physician at 1:30 PM and contacted them today and she states she was told just to come to the ER as we could run labs faster. Patient not have any chest pain or shortness of breath. Past medical history includes migraines, high blood pressure, anxiety, gastric bypass. Past surgical history includes cholecystectomy, hysterectomy, , gastric bypass. Social history denies tobacco alcohol or illicit drug use Timing/Duration: day(s) Severity: moderate (44-5 days) Modifying Factors: Improves With: nothing Associated Symptoms: other (dizzy, feels like she's going to faint), No nausea , No vomiting, No abdominal pain, No shortness of breath, No heartburn, No diaphoresis, No cough, No chills, No chest pain, No fever, No headaches, No loss of appetite, No malaise, No rash, No syncope, No seizure, No weakness Allergies/Adverse Reactions: latex Allergy (Severe, Verified 12/26/18 10:53) Hives Sulfa (Sulfonamide Antibiotics) [Sulfa(Sulfonamide Antibiotics)] Allergy ( Verified 12/26/18 10:53) PT STATES THIS AN ALLERGY BECAUSE OF EYE DROPS CAUSING IRRITATION-SHE HAS JUST TAKEN BACTRIM FOR UTI WITHOUT DIFFICULTY Home Medications: Methocarbamol [Robaxin-750] 750 mg PO Q4H PRN PRN 12/05/13 [History] Mirtazapine [Remeron] 45 mg PO HS 12/05/13 [History] Promethazine HCl 25 mg [Phenergan 25 mg] 25 mg PO Q4H PRN 12/05/13 [ History] Colchicine 0.6 mg PO DAILY 08/20/16 [History] Alprazolam [Xanax] 2 mg PO BID 03/20/18 [History] Biotin 500 mg PO BID 03/20/18 [History] Cholecalciferol (Vitamin D3) [Vitamin D3] 5,000 unit PO BID 03/20/18 [History] Pregabalin [Lyrica 150Mg] 150 mg BID 12/26/18 [History] Hx Tetanus, Diphtheria Vaccination/Date Given: Yes Hx Influenza Vaccination/Date Given: No Hx Pneumococcal Vaccination/Date Given: No Immunizations Up to Date: Yes - Review of Systems Constitutional: No Fever, No Chills Eyes: No Symptoms Ears, Nose, & Throat: No Symptoms Respiratory: No Cough, No Dyspnea Cardiac: No Chest Pain, No Edema, No Syncope Abdominal/Gastrointestinal: No Abdominal Pain, No Nausea, No Vomiting, No Diarrhea Genitourinary Symptoms: No Dysuria Musculoskeletal: No Back Pain, No Neck Pain Skin: No Rash Neurological: Dizziness, No Focal Weakness, No Gait Changes, No Headache, No Irritability, No Lethargy, No Paralysis, No Parasthesia, No Seizure, No Sensory Changes, No Speech Changes, No Tics, No Tremors, No Vertigo Psychological: No Symptoms Endocrine: No Symptoms All Other Systems: Reviewed and Negative - Past Medical History Pertinent Past Medical History: Yes Neurological History: Migraines ENT History: No Pertinent History Cardiac History: Hypertension Respiratory History: No Pertinent History Endocrine Medical History: No Pertinent History, Hypoglycemia Musculoskeletal History: No Pertinent History GI Medical History: Other History: No Pertinent History Psycho-Social History: Anxiety Female Reproductive Disorders: No Pertinent History Other Medical History: PT. HAD GASTRIC BYPASS 5 YEARS AGO. - Past Surgical History Past Surgical History: Yes Neuro Surgical History: No Pertinent History Cardiac: No Pertinent History Respiratory: No Pertinent History Gastrointestinal: Cholecystectomy, Other Genitourinary: No Pertinent History Musculoskeletal: No Pertinent History, Orthopedic Surgery Female Surgical History: Hysterectomy, Section Other Surgical History: , gastric bipass 2013, back surgery - Social History Smoking Status: Never smoker Exposure to second hand smoke: No Drug Use: none Patient Lives Alone: No - Female History Hx Last Menstrual Period: hyster Hx Now: No - Nursing Vital Signs Nursing Vital Signs: Initial Vital Signs Temperature 98.1 F 12/26/18 10:46 Pulse Rate 90 12/26/18 10:46 Respiratory Rate 16 12/26/18 10:46 Blood Pressure 113/73 12/26/18 10:46 O2 Sat by Pulse Oximetry 97 12/26/18 10:46 Pain Scale Pain Intensity 0 - Physical Exam General Appearance: no apparent distress, alert Eye Exam: PERRL/EOMI, eyes nml inspection Ears, Nose, Throat Exam: normal ENT inspection, TMs normal, pharynx normal, moist mucous membranes Neck Exam: normal inspection, non-tender, supple, full range of motion Respiratory Exam: normal breath sounds, lungs clear, No respiratory distress Cardiovascular Exam: regular rate/rhythm, normal heart sounds, normal peripheral pulses, capillary refill <2 sec Gastrointestinal/Abdomen Exam: soft, normal bowel sounds, No tenderness, No mass Back Exam: normal inspection, normal range of motion, No CVA tenderness, No vertebral tenderness Extremity Exam: normal inspection, normal range of motion, pelvis stable Neurologic Exam: alert, oriented x 3, cooperative, cashier receptionist II-XII nml as tested, normal mood/affect, nml cerebellar function, nml station & gait, sensation nml, other (patient is alert,,oriented x3, cranial nerves II through XII intact, normal finger to nose, no pronator drift no facial droop, speech normal, disease case manager equal and symmetrical 5 over 5 full range of motion to all extremities sensation intact to all extremities [place] Coma Scale is 15), No motor deficits Skin Exam: normal color, warm, dry, No rash Lymphatic Exam: No adenopathy SpO2 Interpretation: normal (97%) SpO2: 97 - Course Nursing assessment & vital signs reviewed: Yes EKG Interpreted by Me: RATE (76 bpm), Sinus Rhythm, NORMAL AXIS, Other (EKG: Sinus rhythm, 76 beats per minute,S AXISI/QIII pattern, no acute ST or T wave changes noted. Compared to March 20, 2018) Ordered Tests: Active Orders 24 hr Category Date Time Status Accucheck STAT Care 12/26/18 10:59 Active EKG-ER Only STAT Care 12/26/18 10:59 Active IV Insertion STAT Care 12/26/18 10:59 Active Orthostatic Vital Signs STAT Care 12/26/18 10:59 Active CBC W DIFF Stat Lab 12/26/18 11:30 Completed CMP Stat Lab 12/26/18 11:30 Completed ETHYL ALCOHOL Stat Lab 12/26/18 11:30 Completed UA W/RFX UR CULTURE Stat Lab 12/26/18 11:00 Completed Urine Triage Profile Stat Lab 12/26/18 11:00 Completed Medication Summary Discontinued Medications Generic Name Dose Route Start Last Admin Trade Name Alirio PRN Reason Stop Dose Admin Sodium Chloride 1,000 mls @ 999 mls/hr 12/26/18 10:59 12/26/18 11:35 Sodium Chloride 0.9% 1000 Ml IV 12/26/18 11:59 999 mls/hr .Q1H1M STA Administration Sodium Chloride Confirm 12/26/18 11:33 Sodium Chloride 0.9% 1000 Ml Administered 12/26/18 11:34 Dose 1,000 mls @ ud .ROUTE .STK-MED ONE Lab/Rad Data: Laboratory Result Diagrams 12/26/18 11:30 12/26/18 11:30 Laboratory Results 12/26/18 12/26/18 12/26/18 Range/Units 11:30 11:30 11:00 WBC 7.1 (4.0-10.5) K/mm3 RBC 4.28 (4.1-5.4) M/mm3 Hgb 13.0 (12.0-16.0) gm/dl Hct 40.4 (35-47) % MCV 94.4 (78-100) fl MCH 30.4 (26-32) pg MCHC 32.2 (32-36) g/dl RDW 12.7 (11.5-14.0) % Plt Count 236 (150-450) K/mm3 MPV 11.1 H (6-9.5) fl Gran % 58.6 (36.0-66.0) % Eos # (Auto) 0.30 (0-0.5) Absolute Lymphs (auto) 2.13 (1.0-4.6) Absolute Monos (auto) 0.46 (0.0-1.3) Lymphocytes % 30.2 (24.0-44.0) % Monocytes % 6.5 (0.0-12.0) % Eosinophils % 4.3 (0.00-5.0) % Basophils % 0.4 (0.0-0.4) % Absolute Granulocytes 4.13 (1.4-6.9) Basophils # 0.03 (0-0.4) Sodium 140 (137-145) mmol/L Potassium 4.0 (3.5-5.1) mmol/L Chloride 104 (98-107) mmol/L Carbon Dioxide 28 (22-30) mmol/L Anion Gap 12.3 (5-15) MEQ/L BUN 12 (7-17) mg/dL Creatinine 0.49 L (0.52-1.04) mg/dL Estimated GFR > 60.0 ML/MIN Glucose 90 (74-106) mg/dL Calcium 9.3 (8.4-10.2) mg/dL Total Bilirubin 0.40 (0.2-1.3) mg/dL AST 34 (14-36) U/L ALT 38 H (0-35) U/L Alkaline Phosphatase 102 (38-126) U/L Serum Total Protein 6.9 (6.3-8.2) g/dL Albumin 4.1 (3.5-5.0) g/dL Urine Color (YELLOW) Urine Appearance (CLEAR) Urine pH (5-6) Ur Specific [place] (1.005-1.025) Urine Protein (Negative) Urine Ketones (NEGATIVE) Urine Blood (0-5) Sai/ul Urine Nitrite (NEGATIVE) Urine Bilirubin (NEGATIVE) Urine Urobilinogen (0-1) mg/dL Ur Leukocyte Esterase (NEGATIVE) Urine WBC (Auto) (0-5) /HPF Urine RBC (Auto) (0-2) /HPF U Epithel Cells (Auto) (FEW) /HPF Urine Bacteria (Auto) (NEGATIVE) /HPF Other Casts (Auto) (NEGATIVE) /LPF Urine Mucus (Auto) (NEGATIVE) /HPF Urine Culture Reflexed (NO) Urine Glucose (NEGATIVE) mg/dL Urine Opiates Level NEGATIVE (NEGATIVE) Ur Methadone NEGATIVE (NEGATIVE) Urine Barbiturates NEGATIVE (NEGATIVE) Ur Phencyclidine (PCP) NEGATIVE (NEGATIVE) Urine Amphetamine NEGATIVE (NEGATIVE) U Benzodiazepine Level POSITIVE (NEGATIVE) Urine Cocaine NEGATIVE (NEGATIVE) Urine Marijuana (THC) NEGATIVE (NEGATIVE) Ethyl Alcohol < 10 (0-10) mg/dL 05/28/19 Range/Units 11:00 WBC (4.0-10.5) K/mm3 RBC (4.1-5.4) M/mm3 Hgb (12.0-16.0) gm/dl Hct (35-47) % MCV (78-100) fl MCH (26-32) pg MCHC (32-36) g/dl RDW (11.5-14.0) % Plt Count (150-450) K/mm3 MPV (6-9.5) fl Gran % (36.0-66.0) % Eos # (Auto) (0-0.5) Absolute Lymphs (auto) (1.0-4.6) Absolute Monos (auto) (0.0-1.3) Lymphocytes % (24.0-44.0) % Monocytes % (0.0-12.0) % Eosinophils % (0.00-5.0) % Basophils % (0.0-0.4) % Absolute Granulocytes (1.4-6.9) Basophils # (0-0.4) Sodium (137-145) mmol/L Potassium (3.5-5.1) mmol/L Chloride (98-107) mmol/L Carbon Dioxide (22-30) mmol/L Anion Gap (5-15) MEQ/L BUN (7-17) mg/dL Creatinine (0.52-1.04) mg/dL Estimated GFR ML/MIN Glucose (74-106) mg/dL Calcium (8.4-10.2) mg/dL Total Bilirubin (0.2-1.3) mg/dL AST (14-36) U/L ALT (0-35) U/L Alkaline Phosphatase (38-126) U/L Serum Total Protein (6.3-8.2) g/dL Albumin (3.5-5.0) g/dL Urine Color YELLOW (YELLOW) Urine Appearance SLIGHTLY CLOUDY (CLEAR) Urine pH 5.0 (5-6) Ur Specific [place] 1.023 (1.005-1.025) Urine Protein NEGATIVE (Negative) Urine Ketones NEGATIVE (NEGATIVE) Urine Blood NEGATIVE (0-5) Sai/ul Urine Nitrite NEGATIVE (NEGATIVE) Urine Bilirubin NEGATIVE (NEGATIVE) Urine Urobilinogen NEGATIVE (0-1) mg/dL Ur Leukocyte Esterase NEGATIVE (NEGATIVE) Urine WBC (Auto) 3-5 (0-5) /HPF Urine RBC (Auto) NONE (0-2) /HPF U Epithel Cells (Auto) RARE (FEW) /HPF Urine Bacteria (Auto) RARE (NEGATIVE) /HPF Other Casts (Auto) NEGATIVE (NEGATIVE) /LPF Urine Mucus (Auto) SLIGHT (NEGATIVE) /HPF Urine Culture Reflexed NO (NO) Urine Glucose NEGATIVE (NEGATIVE) mg/dL Urine Opiates Level (NEGATIVE) Ur Methadone (NEGATIVE) Urine Barbiturates (NEGATIVE) Ur Phencyclidine (PCP) (NEGATIVE) Urine Amphetamine (NEGATIVE) U Benzodiazepine Level (NEGATIVE) Urine Cocaine (NEGATIVE) Urine Marijuana (THC) (NEGATIVE) Ethyl Alcohol (0-10) mg/dL - Progress Progress: improved Progress Note: 12/26/18 12:31 Patient feeling better after IV normal saline. Patient's labs essentially normal. Patient's EKG no acute changes. Orthostats are stable. Will discharge. - Departure Departure Disposition: Home Clinical Impression: Dizziness Condition: Fair Critical Care Time: No Referrals: LIZZETTE FOSTER [Primary Care Provider] - Additional Instructions: Return home. Plenty of fluids. Followup with your family . Return for acute distress or for severe symptoms.
[2018-12-26] MEDS ORDERED: Sodium Chloride 0.9% 1000 ML 1,000 ML ONE (11:33)
[2018-12-26 11:36] LABS: BASOPHIL % 0.4 % (0.0-0.4); Basophil (Absolute #) 0.03 (0-0.4); Eosinophil % 4.3 % (0.00-5.0); Granulocyte Absolute (ANC) 4.13 (1.4-6.9); Granulocytes % 58.6 % (36.0-66.0); Hematocrit 40.4 % (35-47); Lymphocyte (Absolute #) 2.13 (1.0-4.6); Lymphocytes % 30.2 % (24.0-44.0); Mean Cell Volume 94.4 fl (78-100); Mean Corpuscular Hemoglobin 30.4 pg (26-32); Mean Corpuscular Hgb Concent. 32.2 g/dl (32-36); Mean Platelet Volume 11.1 fl (6-9.5); Monocyte (Absolute #) 0.46 (0.0-1.3); Monocytes % 6.5 % (0.0-12.0); Platelet Count 236 K/mm3 (150-450); Red Blood Count 4.28 M/mm3 (4.1-5.4); Red Cell Distribution Width 12.7 % (11.5-14.0); White Blood Count 7.1 K/mm3 (4.0-10.5)
[2018-12-26 11:46] LABS: ALBUMIN 4.1 g/dL (3.5-5.0); ALKALINE PHOSPHATASE 102 U/L (38-126); ANION GAP 12.3 MEQ/L (5-15); BLOOD UREA NITROGEN 12 mg/dL (7-17); CHLORIDE 104 mmol/L (98-107); Calcium 9.3 mg/dL (8.4-10.2); Carbon Dioxide 28 mmol/L (22-30); Creatinine 1 0.49 mg/dL (0.52-1.04); Glucose 90 mg/dL (74-106); SGOT/AST 34 U/L (14-36); SGPT/ALT 38 U/L (0-35); SODIUM 140 mmol/L (137-145); Total Protein 6.9 g/dL (6.3-8.2)
[2018-12-26 11:52] LABS: ETHYL ALCOHOL < 10 mg/dL (0-10)
[2018-12-26 11:58] LABS: Appearance SLIGHTLY CLOUDY (CLEAR); Bacteria RARE /HPF (NEGATIVE); Bilirubin NEGATIVE (NEGATIVE); Blood NEGATIVE Ery/ul (0-5); Epithelial Cells RARE /HPF (FEW); Glucose NEGATIVE (NEGATIVE); Ketones NEGATIVE (NEGATIVE); Leukocyte Esterase NEGATIVE (NEGATIVE); Mucus SLIGHT /HPF (NEGATIVE); Nitrite NEGATIVE (NEGATIVE); Protein,Urine Dip NEGATIVE (Negative); Specific Gravity 1.023 (1.005-1.025); Urobilinogen NEGATIVE mg/dL (0-1)
[2018-12-26 12:12] VITALS: BP 111/67; PULSE 75
[2018-12-26 12:13] LABS: Amphetamine,Urine NEGATIVE (NEGATIVE); Barbiturate,Urine NEGATIVE (NEGATIVE); Benzodiazepine,Urine POSITIVE (NEGATIVE); Cocaine,Urine NEGATIVE (NEGATIVE); Methadone,Urine NEGATIVE (NEGATIVE); Opiate,Urine NEGATIVE (NEGATIVE); PCP,Urine NEGATIVE (NEGATIVE); THC,Urine NEGATIVE (NEGATIVE)
[2018-12-26 12:32] VITALS: O2SAT 97
== END 2018-12-26 12:47 | disposition home or self-care (01) ==
LOC: ED 10:17
DX: R42 Dizziness and giddiness (principal); I10 Essential (primary) hypertension; F41.9 Anxiety disorder, unspecified; Z98.84 Bariatric surgery status; Z79.899 Other long term (current) drug therapy
CPT/HCPCS: 36415; 80053; 80307; 81001; 82962; 85025; 93005; 96360; 99284; G0480

== ENCOUNTER 2019-05-28 08:17 | Day surgery (SDC) | payer OTHER ==
[2019-05-28] MEDS ORDERED: Lactated Ringers 1,000 ML IV SCH (09:00)
--- NOTE | 2019-05-28 09:18 | HP ---
DATE OF SURGERY: 05/28/2019 HISTORY OF PRESENT ILLNESS: The patient is a 44 year-old hard to swallow, heartburn backs up to upper esophagus and problems with breathing at times. She has been followed by Dr. Powers and Dr. Finch. She had gastric bypass five years ago, had Vitaly-en-Y. She has some dysphagia upper esophagus. PAST MEDICAL HISTORY: Diabetes. PAST SURGICAL HISTORY: Gastric bypass prior weight loss surgery. Hysterectomy. Vitaly-en-Y in the past. MEDICATIONS: Mirtazapine, Xanax, duloxetine for some anxiety and depression, ranitidine, Protonix, Senna, colchicine, folic acid, lisinopril for some hypertension, loratadine, tizanidine, vitamin D3, trazodone, fluconazole nasal spray as needed, acarbose, Carafate. ALLERGIES: SULFA. LATEX. FAMILY HISTORY: Heart disease. SOCIAL HISTORY: No smoking or alcohol abuse. REVIEW OF SYSTEMS: Fourteen systems reviewed. No chest pain or palpitations other systems negative or noncontributory as above and per preadmission questionnaire. She is followed by Dr. Powers and Dr. Finch for some lung issues. PHYSICAL EXAMINATION: GENERAL: No acute distress. HEENT: Sclerae nonicteric. NECK: No JVD. CHEST: Equal excursion, nonlabored breathing currently. CVS: Regular rate and rhythm. ABDOMEN: Soft, nondistended. EXTREMITIES: No significant edema. NEURO: Alert, moving extremities symmetrically. No gross motor deficits noted. IMPRESSION: Dysphagia, heartburn, prior history of bariatric surgery. I feel the patient is in need of EGD, possible biopsy possible dilatation as she has had some dysphagia upper esophagus. Risks and benefits explained in detail including but not limited to bleeding or infection, risk of bowel injury or perforation possibly requiring open procedure, risk of missed or nondiagnosis or incomplete exam, general risk of anesthesia or sedation but not limited to. She understands if she has persistent reflux problems she may need to follow up with her bariatric surgeon but will evaluate to see if there is any other isolated issue. She understands and agrees to the planned procedure and will proceed with EGD with possible biopsy possible dilatation as an outpatient.
[2019-05-28] MEDS ORDERED: DIPRIVAN 200 MG/20 ML IV ONE ×2 (10:36→10:45)
[2019-05-28] MEDS ORDERED: Ketamine HCl 50 MG/ML ONE (10:37)
[2019-05-28 11:48] VITALS: O2SAT 96
[2019-05-28 11:58] VITALS: BP 150/90; PULSE 72
--- NOTE | 2019-05-29 09:50 | OP ---
SURGERY DATE/TIME: 05/28/2019 1037 PREOPERATIVE DIAGNOSIS: Dysphagia. POSTOPERATIVE DIAGNOSES: 1) Gastritis. 2) Patent gastrojejunostomy anastomosis. No signs of ulcers. 3) Proximal esophageal narrowing and spasm without evidence of any mass. PROCEDURES: 1) Esophagogastroenteroscopy with cold biopsy of the stomach to evaluate for gastritis Helicobacter pylori. 2) Cold biopsy of distal esophagus to evaluate for normal variation versus short segment distal esophagitis versus early metaplasia versus normal variation of gastroesophageal junction. 3) Proximal esophageal dilatation of esophageal narrowing (size 20 balloon dilator). SURGEON: Dr. Rajinder Gaviria. ANESTHESIA: MAC. ESTIMATED BLOOD LOSS: Minimal. INDICATIONS: As noted above. Risks and benefits explained in detail and not limited to and consent obtained. DESCRIPTION OF PROCEDURE AND FINDINGS: The patient is taken to the operating room. MAC anesthesia introduced. After official time out and no disagreement with planned procedure, a bite block positioned. Video gastroscope passed down the oropharynx. There was narrowing and spasm of proximal esophagus this is where she is having problems with her dysphagia. I felt this warranted dilatation. The endoscope was able to just pass through this area down to the gastroesophageal junction into the short pass to the stomach. It is where the patient had some gastrojejunostomy in the past. The gastrojejunal loop appeared to be patent. No signs of any small bowel issues so technically this is esophagogastroenteroscopy. No signs of any ulcers or any other lesions. The anastomotic site was widely patent. Back in the stomach she did have gastritis. No signs of any ulcers or masses. Cold biopsy taken to evaluate for Helicobacter pylori. Good hemostasis noted. Scope pulled back up to the gastroesophageal junction. Cold biopsy taken of distal esophagus to evaluate for short segment possible distal esophagus early metaplasia versus early gastroesophagitis versus normal variation in the gastroesophageal junction. Good hemostasis noted. The remainder of the esophagus no signs of any mucosal lesions. In the proximal esophageal narrowed area there was no evidence of any mass to biopsy. It was narrowed. It was felt it would benefit from dilatation. Scope is passed back down into the small stomach pouch into the proximal small bowel where the balloon catheter is carefully inserted under direct vision and pulled back into the proximal esophageal narrowing and spasm area and this area is carefully dilated first stage 45 seconds, second stage 45 seconds, final stage size 20 balloon dilated 45 seconds. The balloon is then released and balloon catheter withdrawn. The scope much more easily passed through this dilated segment than prior to dilatation. Scope passed back down the stomach and carefully withdrawn. Good hemostasis noted. There were no signs of any full thickness issues or injury secondary to dilatation. The patient tolerated the procedure well. There were no immediate complications.
== END 2019-05-28 12:00 | disposition home or self-care (01) ==
LOC: SDC 08:17
PROVIDERS: ATTEND Surgery
DX: K22.2 Esophageal obstruction (principal); K29.70 Gastritis, unspecified, without bleeding; K22.4 Dyskinesia of esophagus; E11.9 Type 2 diabetes mellitus without complications; I10 Essential (primary) hypertension; Z79.899 Other long term (current) drug therapy
CPT/HCPCS: 82962; C1726; J2704

== ENCOUNTER 2020-04-21 22:57 | Emergency (ER) | payer OTHER ==
[2020-04-21] MEDS ORDERED: TORAdol 30 mg Injection IM ONE (23:25)
[2020-04-21] MEDS ORDERED: TORAdol 30 mg Injection ONE (23:26)
--- NOTE | 2020-04-21 23:42 | ERPHSYRPT ---
- History of Present Illness Source: patient Exam Limitations: no limitations Patient Subjective Stated Complaint: pt c/o lt shoulder/arm pain Triage Nursing Assessment: pt c/o lt shoulder/arm pain which started around 0930 today when she got up from bed. Pt can't lift arm up to shoulder level. Pain shoots from shoulder to elbow and down to fingers at times. Pulse present and strong in lt radial. Occurred: this morning Method of Injury: unknown Quality: constant Severity of Pain-Max: severe Severity of Pain-Current: moderate Extremities Pain Location: shoulder: left, arm: left, wrist: left Modifying Factors: Improves With: movement Associated Symptoms: none Allergies/Adverse Reactions: latex Allergy (Severe, Verified 04/21/20 23:13) Hives Sulfa (Sulfonamide Antibiotics) [Sulfa(Sulfonamide Antibiotics)] Allergy (Verified 04/21/20 23:13) PT STATES THIS AN ALLERGY BECAUSE OF EYE DROPS CAUSING IRRITATION-SHE HAS JUST TAKEN BACTRIM FOR UTI WITHOUT DIFFICULTY Home Medications: Mirtazapine [Remeron] 45 mg PO HS 12/05/13 [History] Colchicine 0.6 mg PO DAILY 08/20/16 [History] Alprazolam [Xanax] 2 mg PO BID 03/20/18 [History] Biotin 500 mg PO BID 03/20/18 [History] Cholecalciferol (Vitamin D3) [Vitamin D3] 5,000 unit PO BID 03/20/18 [History] Acarbose [Precose] 50 mg PO AC 05/24/19 [History] Duloxetine HCl 30 mg [Cymbalta 30 MG Capsule] 30 mg PO HS 05/24/19 [History] Folic Acid 1 mg [Folate 1 mg] 1 mg PO DAILY 05/24/19 [History] Lisinopril 20 mg [Zestril 20 MG] 20 mg PO DAILY 05/24/19 [History] Loratadine/Pseudoephedrine [Loratadine-D 12 Hour Tablet] 1 each PO DAILY [History] Sennosides [Senna] 8.6 mg PO BID 05/24/19 [History] Sucralfate 1 gm [Carafate 1 GM] 1 g PO ACHS 05/24/19 [History] Tizanidine HCl 4 mg [Zanaflex 4 MG] 4 mg PO Q8H 05/24/19 [History] Trazodone HCl 50 mg [Desyrel 50 mg] 50 mg PO HS 05/24/19 [History] Cyanocobalamin (Vitamin B-12) [Vitamin B-12] 1,000 mcg IN WEEKLY 05/28/19 [History] PANTOPRAZOLE 40 mg Tablet [Protonix 40MG Tablet] 80 mg PO BID 05/28/19 [History] Hx Tetanus, Diphtheria Vaccination/Date Given: Yes Hx Influenza Vaccination/Date Given: No Hx Pneumococcal Vaccination/Date Given: No Immunizations Up to Date: Yes Travel Risk - International Travel Have you traveled outside of the country in past 3 weeks: No - Coronavirus Screening Are you exhibiting any of the following symptoms?: No Close contact with a COVID-19 positive Pt in past 14-21 Days: No - Review of Systems Constitutional: No Fever, No Chills Eyes: No Symptoms Ears, Nose, & Throat: No Symptoms Respiratory: No Cough, No Dyspnea Cardiac: No Chest Pain, No Edema, No Syncope Abdominal/Gastrointestinal: No Abdominal Pain, No Nausea, No Vomiting, No Diarrhea Genitourinary Symptoms: No Dysuria Musculoskeletal: Arthralgias, Joint Pain, No Back Pain, No Neck Pain Skin: No Rash Neurological: Parasthesia, No Dizziness, No Focal Weakness, No Sensory Changes Psychological: No Symptoms Endocrine: No Symptoms All Other Systems: Reviewed and Negative - Past Medical History Pertinent Past Medical History: Yes Neurological History: Migraines ENT History: No Pertinent History Cardiac History: Hypertension Respiratory History: No Pertinent History Endocrine Medical History: Diabetes Type II, Hypoglycemia Musculoskeletal History: Other GI Medical History: Other History: No Pertinent History Psycho-Social History: Anxiety Female Reproductive Disorders: No Pertinent History Other Medical History: PT. HAD GASTRIC BYPASS 5 YEARS AGO. reactive hypogl ycemic diabetic. GOUT - Past Surgical History Past Surgical History: Yes Neuro Surgical History: No Pertinent History Cardiac: No Pertinent History Respiratory: No Pertinent History Gastrointestinal: Cholecystectomy, Other Genitourinary: No Pertinent History Musculoskeletal: Orthopedic Surgery Female Surgical History: Hysterectomy, Section Other Surgical History: , gastric bipass Jul, RFA - Social History Smoking Status: Never smoker Exposure to second hand smoke: No Drug Use: none Patient Lives Alone: No - Female History Hx Now: No - Nursing Vital Signs Nursing Vital Signs: Initial Vital Signs Temperature 98.1 F 04/21/20 23:01 Pulse Rate 84 04/21/20 23:01 Respiratory Rate 18 04/21/20 23:01 Blood Pressure 114/72 04/21/20 23:01 O2 Sat by Pulse Oximetry 97 04/21/20 23:01 Pain Scale Pain Intensity 7 - Physical Exam General Appearance: mild distress, alert Eyes, Ears, Nose, Throat Exam: moist mucous membranes Neck Exam: non-tender, supple Cardiovascular/Respiratory Exam: chest non-tender, normal breath sounds, regular rate/rhythm, no respiratory distress Abdominal Exam: non-tender, No guarding Back Exam: normal inspection, No vertebral tenderness Shoulder Exam: limited ROM, soft tissue tenderness (Left anterior and posterior deltoid area. left rhomboid area TTT) Neuro/Tendon Exam: normal sensation, normal motor functions Mental Status Exam: alert, oriented x 3, cooperative Skin Exam: normal color, warm, dry SpO2: 97 - Radiology Exams Left Shoulder X-ray Interpretation: Reviewed by me, Negative Ordered Tests: Active Orders 24 hr Category Date Time Status SHOULDER Stat Exams 04/21/20 23:40 Taken Medication Summary Discontinued Medications Generic Name Dose Route Start Last Admin Trade Name Alirio PRN Reason Stop Dose Admin Ketorolac Tromethamine 60 mg 04/21/20 23:25 04/21/20 23:27 Toradol 30 Mg Injection IM 04/21/20 23:26 60 mg STAT ONE Administration Ketorolac Tromethamine Confirm 04/21/20 23:26 Toradol 30 Mg Injection Administered 04/21/20 23:27 Dose 60 mg .ROUTE .STK-MED ONE - Progress Progress: improved Progress Note: 04/22/20 00:04 Shoulder XR, toradol IM XR neg. Most likely ST injury. Pt has follow up in the morning. MM relaxer RX. DC home. Counseled pt/family regarding: diagnosis, need for follow-up, rad results - Departure Departure Disposition: Home Clinical Impression: Internal derangement of left shoulder Condition: Stable Critical Care Time: No Referrals: LIZZETTE FOSTER [Primary Care Provider] - Instructions: Shoulder Sprain Additional Instructions: Monitor closely. Gentle range of motion. take muscle relaxer as prescribed. Follow up with PCP as scheduled. Return to ER if worse. Prescriptions: Cyclobenzaprine HCl 10 mg [Flexeril 10 MG] 10 mg PO TID #20 tablet
[2020-04-22] MEDS ORDERED: Cyclobenzaprine 10 MG PO ONE (00:03)
[2020-04-22] MEDS ORDERED: PERCOCET TABLET 5/325MG PO ONE (00:03)
[2020-04-22] MEDS ORDERED: PERCOCET TABLET 5/325MG ONE (00:06)
[2020-04-22] MEDS ORDERED: Cyclobenzaprine 10 MG ONE (00:06)
[2020-04-22 00:25] VITALS: BP 111/71; PULSE 98; O2SAT 98
--- NOTE | 2020-04-22 08:46 | XRAY ---
Indication: Pain. Decreased range of motion. No known injury. Comparison: None 3 view left shoulder demonstrates minimal multilevel thoracic degenerative endplate spurring and tiny left lower lobe calcified granuloma. No other bony, articular, or soft tissue abnormalities.
== END 2020-04-22 00:25 | disposition home or self-care (01) ==
LOC: ED 22:57
DX: M24.9 Joint derangement, unspecified (principal); M25.512 Pain in left shoulder
CPT/HCPCS: 73030; 96372; 99284; J1885; A9270-GY

== ENCOUNTER 2020-06-28 11:53 | Emergency (ER) | payer OTHER ==
--- NOTE | 2020-06-28 11:56 | ERPHSYRPT ---
- History of Present Illness Time Seen by Provider: 06/28/20 11:56 Historian: patient Exam Limitations: no limitations Physician History: This is a 45-year-old white female who has had a gastric bypass surgery (Vitaly-en-Y) for weight loss 6 years ago. In addition she has had a hysterectomy and cholecystectomy. Patient presents with a 2 to 3-day history of left flank p ain. Intermittently it has radiated anteriorly to the left lower quadrant. Patient has a history of anxiety/depression as well as hypertension. She has had associated nausea with one episode of vomiting yesterday. She denies chest pain. She denies shortness of breath. She denies diarrhea. Patient states that she is never had anything like this before. Timing/Duration: day(s) (2-3), worse Activities at Onset: none Quality: sharpness, stabbing Abdominal Pain Onset Location: flank (Left) Pain Radiation: LLQ Severity of Pain-Max: moderate Severity of Pain-Current: moderate Associated Symptoms: nausea, vomiting Previous symptoms: no prior history Allergies/Adverse Reactions: latex Allergy (Severe, Verified 04/21/20 23:13) Hives Sulfa (Sulfonamide Antibiotics) [Sulfa(Sulfonamide Antibiotics)] Allergy (Verified 04/21/20 23:13) PT STATES THIS AN ALLERGY BECAUSE OF EYE DROPS CAUSING IRRITATION-SHE HAS JUST TAKEN BACTRIM FOR UTI WITHOUT DIFFICULTY Home Medications: Mirtazapine [Remeron] 45 mg PO HS 12/05/13 [History] Colchicine 0.6 mg PO DAILY 08/20/16 [History] Alprazolam [Xanax] 2 mg PO BID 03/20/18 [History] Biotin 500 mg PO BID 03/20/18 [History] Cholecalciferol (Vitamin D3) [Vitamin D3] 5,000 unit PO BID 03/20/18 [History] Acarbose [Precose] 50 mg PO AC 05/24/19 [History] Duloxetine HCl 30 mg [Cymbalta 30 MG Capsule] 30 mg PO HS 05/24/19 [History] Folic Acid 1 mg [Folate 1 mg] 1 mg PO DAILY 05/24/19 [History] Lisinopril 20 mg [Zestril 20 MG] 20 mg PO DAILY 05/24/19 [History] Loratadine/Pseudoephedrine [Loratadine-D 12 Hour Tablet] 1 each PO DAILY 05/24/19 [History] Sennosides [Senna] 8.6 mg PO BID 05/24/19 [History] Sucralfate 1 gm [Carafate 1 GM] 1 g PO ACHS 05/24/19 [History] Tizanidine HCl 4 mg [Zanaflex 4 MG] 4 mg PO Q8H 05/24/19 [History] Trazodone HCl 50 mg [Desyrel 50 mg] 50 mg PO HS 05/24/19 [History] Cyanocobalamin (Vitamin B-12) [Vitamin B-12] 1,000 mcg IN WEEKLY 05/28/19 [History] PANTOPRAZOLE 40 mg Tablet [Protonix 40MG Tablet] 80 mg PO BID 05/28/19 [History] Hx Tetanus, Diphtheria Vaccination/Date Given: Yes Hx Influenza Vaccination/Date Given: No Hx Pneumococcal Vaccination/Date Given: No Travel Risk - International Travel Have you traveled outside of the country in past 3 weeks: No - Coronavirus Screening Are you exhibiting any of the following symptoms?: No Close contact with a COVID-19 positive Pt in past 14-21 Days: No - Review of Systems Constitutional: No Symptoms Eyes: No Symptoms Ears, Nose, & Throat: No Symptoms Respiratory: No Symptoms Cardiac: No Symptoms Abdominal/Gastrointestinal: Abdominal Pain (Left lower quadrant), Nausea, Vomiting Genitourinary Symptoms: Flank Pain (Left) Musculoskeletal: No Symptoms Skin: No Symptoms Neurological: No Symptoms Psychological: No Symptoms Endocrine: No Symptoms Hematologic/Lymphatic: No Symptoms Immunological/Allergic: No Symptoms All Other Systems: Reviewed and Negative - Past Medical History Pertinent Past Medical History: Yes Neurological History: Migraines ENT History: No Pertinent History Cardiac History: Hypertension Respiratory History: No Pertinent History Endocrine Medical History: Diabetes Type II, Hypoglycemia Musculoskeletal History: Other GI Medical History: Other History: No Pertinent History Psycho-Social History: Anxiety Female Reproductive Disorders: No Pertinent History Other Medical History: PT. HAD GASTRIC BYPASS 5 YEARS AGO. reactive hypoglycemic diabetic. GOUT - Past Surgical History Past Surgical History: Yes Neuro Surgical History: No Pertinent History Cardiac: No Pertinent History Respiratory: No Pertinent History Gastrointestinal: Cholecystectomy, Other Genitourinary: No Pertinent History Musculoskeletal: Orthopedic Surgery Female Surgical History: Hysterectomy, Section Other Surgical History: , gastric bipass Jul, RFA - Social History Smoking Status: Never smoker Exposure to second hand smoke: No Drug Use: none Patient Lives Alone: No - Nursing Vital Signs Nursing Vital Signs: Initial Vital Signs Temperature 98.0 F 06/28/20 11:57 Pulse Rate 103 H 06/28/20 11:57 Respiratory Rate 18 06/28/20 11:57 O2 Sat by Pulse Oximetry 98 06/28/20 11:57 Pain Scale Pain Intensity 9 - Physical Exam General Appearance: mild distress, alert, anxiety, obese Eye Exam: PERRL/EOMI, eyes nml inspection Ears, Nose, Throat Exam: normal ENT inspection, moist mucous membranes Neck Exam: normal inspection, non-tender, supple, full range of motion Respiratory Exam: normal breath sounds, lungs clear, airway intact, No chest tenderness, No respiratory distress Cardiovascular Exam: regular rate/rhythm, normal heart sounds, normal peripheral pulses Gastrointestinal/Abdomen Exam: No guarding, No rebound Pelvic Exam: not done Rectal Exam: not done Back Exam: normal inspection, normal range of motion, CVA tenderness (Left), No vertebral tenderness Extremity Exam: normal inspection, normal range of motion, pelvis stable Neurologic Exam: alert, oriented x 3, cooperative, 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, nml cerebellar function, nml station & gait, sensation nml Skin Exam: normal color, warm, dry Lymphatic Exam: No adenopathy O2 Delivery: Room Air - Course Nursing assessment & vital signs reviewed: Yes Ordered Tests: Active Orders 24 hr Category Date Time Status IV Insertion STAT Care 06/28/20 12:15 Active ABDOMEN AND PELVIS W/0 CONTRAS [CT] Stat Exams 06/28/20 12:15 Taken AMYLASE Stat Lab 06/28/20 12:15 Completed CBC W DIFF Stat Lab 06/28/20 12:15 Completed CMP Stat Lab 06/28/20 12:15 Completed CULTURE,URINE Stat Lab 06/28/20 12:15 Received LIPASE Stat Lab 06/28/20 12:15 Completed Lactic Acid Stat Lab 06/28/20 12:15 Completed UA W/RFX UR CULTURE Stat Lab 06/28/20 12:15 Completed Medication Summary Generic Name Dose Route Start Last Admin Trade Name Freq PRN Reason Stop Dose Admin Ceftriaxone Sodium/Dextrose 1 g in 50 mls @ 100 mls/hr 06/28/20 13:10 Rocephin 1 Gm-D5w 50 Ml Bag IV 06/28/20 13:39 STAT STA Discontinued Medications Generic Name Dose Route Start Last Admin Trade Name Alirio PRN Reason Stop Dose Admin Hydromorphone HCl 1 mg 06/28/20 12:15 06/28/20 12:22 Hydromorphone 1 Mg/Ml Injection IV 06/28/20 12:16 1 mg STAT ONE Administration Hydromorphone HCl Confirm 06/28/20 12:20 Hydromorphone 1 Mg/Ml Injection Administered 06/28/20 12:21 Dose 1 mg .ROUTE .STK-MED ONE Sodium Chloride 1,000 mls @ 999 mls/hr 06/28/20 12:15 06/28/20 12:21 Sodium Chloride 0.9% 1000 Ml IV 06/28/20 13:15 999 mls/hr .Q1H1M STA Administration Sodium Chloride Confirm 06/28/20 12:20 Sodium Chloride 0.9% 1000 Ml Administered 06/28/20 12:21 Dose 1,000 mls @ ud .ROUTE .STK-MED ONE Ondansetron HCl 4 mg 06/28/20 12:15 06/28/20 12:22 Zofran 4 Mg/2 Ml Vial IV 06/28/20 12:16 4 mg STAT ONE Administration Ondansetron HCl Confirm 06/28/20 12:20 Zofran 4 Mg/2 Ml Vial Administered 06/28/20 12:21 Dose 4 mg .ROUTE .STK-MED ONE Lab/Rad Data: Laboratory Result Diagrams 06/28/20 12:15 06/28/20 12:15 Laboratory Results 06/28/20 06/28/20 06/28/20 Range/Units 12:15 12:15 12:15 WBC 12.8 H (4.0-10.5) K/mm3 RBC 5.07 (4.1-5.4) M/mm3 Hgb 15.2 (12.0-16.0) gm/dl Hct 46.6 (35-47) % MCV 91.9 (78-100) fl MCH 30.0 (26-32) pg MCHC 32.6 (32-36) g/dl RDW 14.9 H (11.5-14.0) % Plt Count 312 (150-450) K/mm3 MPV 10.9 (7.5-11.0) fl Gran % 72.0 H (36.0-66.0) % Eos # (Auto) 0.15 (0-0.5) Absolute Lymphs (auto) 2.21 (1.0-4.6) Absolute Monos (auto) 1.17 (0.0-1.3) Lymphocytes % 17.3 L (24.0-44.0) % Monocytes % 9.2 (0.0-12.0) % Eosinophils % 1.2 (0.00-5.0) % Basophils % 0.3 (0.0-0.4) % Absolute Granulocytes 9.20 H (1.4-6.9) Basophils # 0.04 (0-0.4) Sodium 135 L (137-145) mmol/L Potassium 4.4 (3.5-5.1) mmol/L Chloride 102 (98-107) mmol/L Carbon Dioxide 24 (22-30) mmol/L Anion Gap 14.3 (5-15) MEQ/L BUN 23 H (7-17) mg/dL Creatinine 0.96 (0.52-1.04) mg/dL Estimated GFR > 60.0 ML/MIN Glucose 117 H (74-106) mg/dL Lactic Acid 1.0 (0.4-2.0) Calcium 10.1 (8.4-10.2) mg/dL Total Bilirubin 0.90 (0.2-1.3) mg/dL AST 26 (14-36) U/L ALT 36 H (0-35) U/L Alkaline Phosphatase 129 H (38-126) U/L Serum Total Protein 7.7 (6.3-8.2) g/dL Albumin 4.7 (3.5-5.0) g/dL Amylase 45 (30-110) U/L Lipase 49 (23-300) U/L Urine Color (YELLOW) Urine Appearance (CLEAR) Urine pH (5-6) Ur Specific [place] (1.005-1.025) Urine Protein (Negative) Urine Ketones (NEGATIVE) Urine Blood (0-5) Sai/ul Urine Nitrite (NEGATIVE) Urine Bilirubin (NEGATIVE) Urine Urobilinogen (0-1) mg/dL Ur Leukocyte Esterase (NEGATIVE) Urine WBC (Auto) (0-5) /HPF Urine RBC (Auto) (0-2) /HPF U Hyaline Cast (Auto) (0-2) /LPF U Epithel Cells (Auto) (FEW) /HPF Urine Bacteria (Auto) (NEGATIVE) /HPF Urine Mucus (Auto) (NEGATIVE) /HPF Urine Culture Reflexed (NO) Urine Glucose (NEGATIVE) mg/dL 06/28/20 Range/Units 12:15 WBC (4.0-10.5) K/mm3 RBC (4.1-5.4) M/mm3 Hgb (12.0-16.0) gm/dl Hct (35-47) % MCV (78-100) fl MCH (26-32) pg MCHC (32-36) g/dl RDW (11.5-14.0) % Plt Count (150-450) K/mm3 MPV (7.5-11.0) fl Gran % (36.0-66.0) % Eos # (Auto) (0-0.5) Absolute Lymphs (auto) (1.0-4.6) Absolute Monos (auto) (0.0-1.3) Lymphocytes % (24.0-44.0) % Monocytes % (0.0-12.0) % Eosinophils % (0.00-5.0) % Basophils % (0.0-0.4) % Absolute Granulocytes (1.4-6.9) Basophils # (0-0.4) Sodium (137-145) mmol/L Potassium (3.5-5.1) mmol/L Chloride (98-107) mmol/L Carbon Dioxide (22-30) mmol/L Anion Gap (5-15) MEQ/L BUN (7-17) mg/dL Creatinine (0.52-1.04) mg/dL Estimated GFR ML/MIN Glucose (74-106) mg/dL Lactic Acid (0.4-2.0) Calcium (8.4-10.2) mg/dL Total Bilirubin (0.2-1.3) mg/dL AST (14-36) U/L ALT (0-35) U/L Alkaline Phosphatase (38-126) U/L Serum Total Protein (6.3-8.2) g/dL Albumin (3.5-5.0) g/dL Amylase (30-110) U/L Lipase (23-300) U/L Urine Color MIRZA (YELLOW) Urine Appearance CLOUDY (CLEAR) Urine pH 5.0 (5-6) Ur Specific [place] 1.028 (1.005-1.025) Urine Protein 30 (Negative) Urine Ketones TRACE (NEGATIVE) Urine Blood NEGATIVE (0-5) Sai/ul Urine Nitrite NEGATIVE (NEGATIVE) Urine Bilirubin MODERATE (NEGATIVE) Urine Urobilinogen NEGATIVE (0-1) mg/dL Ur Leukocyte Esterase TRACE (NEGATIVE) Urine WBC (Auto) 6-10 (0-5) /HPF Urine RBC (Auto) 0-2 (0-2) /HPF U Hyaline Cast (Auto) 11-25 (0-2) /LPF U Epithel Cells (Auto) FEW (FEW) /HPF Urine Bacteria (Auto) MODERATE (NEGATIVE) /HPF Urine Mucus (Auto) MODERATE (NEGATIVE) /HPF Urine Culture Reflexed YES (NO) Urine Glucose NEGATIVE (NEGATIVE) mg/dL - Progress Progress Note: 06/28/20 13:32 CAT scan of the abdomen and pelvis without contrast reveals no acute intra- abdominal or pelvic abnormality. Counseled pt/family regarding: lab results, diagnosis, need for follow-up, rad results - Departure Clinical Impression: UTI (urinary tract infection), Left flank pain Condition: Stable Critical Care Time: No Referrals: LIZZETTE FOSTER [Primary Care Provider] - Additional Instructions: Drink plenty of fluids. Use ibuprofen 600 mg orally with food 3 times a day for the next 5 days if not allergic or no contraindications. Follow-up with your primary care physician for further management. Take your medications as prescribed. Prescriptions: Hydrocodone/APAP 5/325 [[place] 5/325 mg] 1 each PO Q8H PRN PRN #6 tablet MDD 3 PRN Reason: Pain Ciprofloxacin [Cipro 500 MG] 500 mg PO BID #14 tablet
[2020-06-28] MEDS ORDERED: Zofran 4 MG/2 ML VIAL IV ONE (12:15)
[2020-06-28] MEDS ORDERED: Hydromorphone 1 mg/ml Injection IV ONE (12:15)
[2020-06-28] MEDS ORDERED: Sodium Chloride 0.9% 1000 ML 1,000 ML IV STA (12:15)
[2020-06-28] MEDS ORDERED: Sodium Chloride 0.9% 1000 ML 1,000 ML ONE (12:20)
[2020-06-28] MEDS ORDERED: Hydromorphone 1 mg/ml Injection ONE (12:20)
[2020-06-28] MEDS ORDERED: Zofran 4 MG/2 ML VIAL ONE (12:20)
[2020-06-28 12:31] LABS: BASOPHIL % 0.3 % (0.0-0.4); Basophil (Absolute #) 0.04 (0-0.4); Eosinophil % 1.2 % (0.00-5.0); Eosinophil (Absolute #) 0.15 (0-0.5); Hematocrit 46.6 % (35-47); Hemoglobin 15.2 gm/dl (12.0-16.0); Lymphocyte (Absolute #) 2.21 (1.0-4.6); Lymphocytes % 17.3 % (24.0-44.0); Mean Cell Volume 91.9 fl (78-100); Mean Corpuscular Hgb Concent. 32.6 g/dl (32-36); Mean Platelet Volume 10.9 fl (7.5-11.0); Monocyte (Absolute #) 1.17 (0.0-1.3); Monocytes % 9.2 % (0.0-12.0); Platelet Count 312 K/mm3 (150-450); Red Blood Count 5.07 M/mm3 (4.1-5.4); Red Cell Distribution Width 14.9 % (11.5-14.0); White Blood Count 12.8 K/mm3 (4.0-10.5)
[2020-06-28 12:35] LABS: Appearance CLOUDY (CLEAR); Bacteria MODERATE /HPF (NEGATIVE); Bilirubin MODERATE (NEGATIVE); Blood NEGATIVE Ery/ul (0-5); Epithelial Cells FEW /HPF (FEW); Glucose NEGATIVE (NEGATIVE); Ketones TRACE (NEGATIVE); Leukocyte Esterase TRACE (NEGATIVE); Mucus MODERATE /HPF (NEGATIVE); Nitrite NEGATIVE (NEGATIVE); Protein,Urine Dip 30 (Negative); RBC 0-2 /HPF (0-2); Specific Gravity 1.028 (1.005-1.025); Urobilinogen NEGATIVE mg/dL (0-1)
[2020-06-28 12:41] LABS: ALBUMIN 4.7 g/dL (3.5-5.0); ALKALINE PHOSPHATASE 129 U/L (38-126); AMYLASE 45 U/L (30-110); ANION GAP 14.3 MEQ/L (5-15); BLOOD UREA NITROGEN 23 mg/dL (7-17); CHLORIDE 102 mmol/L (98-107); Calcium 10.1 mg/dL (8.4-10.2); Carbon Dioxide 24 mmol/L (22-30); Creatinine 1 0.96 mg/dL (0.52-1.04); EST GLOMERULAR FILTRATION RATE > 60.0 ML/MIN; Glucose 117 mg/dL (74-106); LIPASE 49 U/L (23-300); Potassium 4.4 mmol/L (3.5-5.1); SGOT/AST 26 U/L (14-36); SGPT/ALT 36 U/L (0-35); SODIUM 135 mmol/L (137-145); Total Protein 7.7 g/dL (6.3-8.2)
[2020-06-28] MEDS ORDERED: ROCEPHIN 1 Gm-D5w 50 ml Bag** 1 G/50 ML IVPB IV STA (13:10)
[2020-06-28] MEDS ORDERED: ROCEPHIN 1 Gm-D5w 50 ml Bag** 1 G/50 ML IVPB IV ONE (13:40)
[2020-06-28 14:41] VITALS: BP 139/89; PULSE 92; O2SAT 97
--- NOTE | 2020-06-28 17:23 | XRAY ---
Indication: Left flank pain 2-3 days. Multiple contiguous axial images obtained through the abdomen and pelvis without contrast using renal stone protocol. Comparison: March 20, 2018. Lung bases demonstrate subcarinal and stable left lower lobe calcified granulomas. Stable bibasilar subsegmental atelectasis/scarring. No infiltrate or effusion. Heart is not enlarged. Again small hiatal hernia. Again no renal calculus or evidence for obstructive uropathy in either system. New 5.6 cm left adnexal cyst presumed ovary in etiology. Noncontrasted stomach and bowel loops are nonobstructed. Stable splenic calcified granulomas, 21.5 cm hepatomegaly, 8 mm right lower renal cyst, gastric bypass surgery, hysterectomy, and cholecystectomy. No free fluid/air. Remaining liver, pancreas, spleen, adrenal glands, kidneys, ureters, bladder, and aorta appear unremarkable for noncontrast exam. Osseous structures intact again with minimal degenerative changes throughout the thoracolumbar spine. Impression: 1. Negative renal calculus or evidence for obstructive uropathy. 2. New 5.6 cm left adnexal cystic mass presumed ovary. Pelvic sonogram may yield further information if clinically warranted. 3. Again incidental small hiatal hernia, hepatomegaly, right renal cyst, and old granulomatous disease. Comment: Preliminary interpretation was made by C. No critical discrepancy.
== END 2020-06-28 14:36 | disposition home or self-care (01) ==
LOC: ED 11:53
DX: N39.0 Urinary tract infection, site not specified (principal); R10.9 Unspecified abdominal pain
CPT/HCPCS: 36000; 36415; 74176; 80053; 81001; 82150; 83605; 83690; 85025; 87086; 96365; 96374; 96375; 99284; J0696; J1170; J2405

== ENCOUNTER 2021-03-10 06:18 | Day surgery (SDC) | payer MEDICARE ==
[2021-03-10] MEDS ORDERED: Lactated Ringers 1,000 ML IV SCH (06:30)
[2021-03-10] MEDS ORDERED: Xylocaine-Mpf 2% 5 Ml Vial ONE (07:27)
[2021-03-10] MEDS ORDERED: Zofran 4 MG/2 ML VIAL ONE (07:27)
[2021-03-10] MEDS ORDERED: DIPRIVAN 200 MG/20 ML IV ONE (07:27)
[2021-03-10] MEDS ORDERED: Decadron 4 MG INJ ONE (08:02)
--- NOTE | 2021-03-10 08:32 | OP ---
SURGERY DATE/TIME: 03/10/2021 0802 PREOPERATIVE DIAGNOSIS: Nausea and reflux. POSTOPERATIVE DIAGNOSIS: Normal exam status post partial gastrectomy for obesity surgery. PROCEDURE: Esophagogastroduodenoscopy. SURGEON: Dr. Moore. ANESTHESIA: Medications were given by the anesthesia department. BRIEF HISTORY: The patient is a 45 year old white female who reports that she has been having problems with nausea and takes nausea medications all the time of Zofran and Phenergan. The patient reports also periods of reflux. It was noted that the patient is on Mobic and Acarbose routinely. The patient was described the risks of the procedure including the risk of perforation, phlebitis, untoward reaction to medication, bleeding and missed lesions. The patient verbalized her understanding and desired to have the procedure performed. DESCRIPTION OF PROCEDURE: The patient was given the medications by the anesthesia department. She had continuous pulse oximetry, ECG monitoring, intermittent blood pressure monitoring and tidal CO2 monitoring during the examination. She was placed in the left lateral decubitus position. A bite block was placed. The flexible Olympus gastroscope was used to intubate the oropharynx which appeared to be normal. The scope was easily introduced in the esophagus which appeared to be essentially normal throughout its length. A small pocket of stomach was entered and did not appear to have any ulcerations or gastritis noted. Sections of the small bowel also appeared to be essentially normal. The scope was withdrawn from the patient with careful inspection upon withdrawal and no mucosal lesions were encountered. The scope was then removed from the patient who tolerated the procedure well and was sent back to operative recovery in good condition.
[2021-03-10 09:02] VITALS: BP 116/79; PULSE 84; O2SAT 98
== END 2021-03-10 09:05 | disposition home or self-care (01) ==
LOC: SDC 06:18
PROVIDERS: ATTEND Family Medicine
DX: K21.9 Gastro-esophageal reflux disease without esophagitis (principal); R11.0 Nausea; R12 Heartburn; Z90.3 Acquired absence of stomach [part of]
CPT/HCPCS: J1100; J2405; J2704

== ENCOUNTER 2021-04-24 04:16 | Emergency (ER) | payer MEDICARE ==
[2021-04-24] MEDS ORDERED: TORAdol 30 mg Injection IM ONE (04:44)
[2021-04-24 04:48] LABS: Appearance SLIGHTLY CLOUDY (CLEAR); Bacteria RARE /HPF (NEGATIVE); Bilirubin MODERATE (NEGATIVE); Blood NEGATIVE Ery/ul (0-5); Epithelial Cells RARE /HPF (FEW); Glucose NEGATIVE (NEGATIVE); Ketones NEGATIVE (NEGATIVE); Leukocyte Esterase NEGATIVE (NEGATIVE); Mucus SLIGHT /HPF (NEGATIVE); Nitrite NEGATIVE (NEGATIVE); Protein,Urine Dip NEGATIVE (Negative); Specific Gravity 1.019 (1.005-1.025); Urobilinogen 2 mg/dL (0-1)
[2021-04-24] MEDS ORDERED: TORAdol 30 mg Injection ONE (05:25)
[2021-04-24 06:18] LABS: Absolute Neutrophil Ct (ANC) 3.06 (1.4-6.9); BASOPHIL % 0.5 % (0.0-0.4); Basophil (Absolute #) 0.03 (0-0.4); Eosinophil % 4.1 % (0.00-5.0); Eosinophil (Absolute #) 0.26 (0-0.5); Hematocrit 40.5 % (35-47); Hemoglobin 12.6 gm/dl (12.0-16.0); Lymphocyte (Absolute #) 2.61 (1.0-4.6); Lymphocytes % 41.1 % (24.0-44.0); Mean Cell Volume 97.1 fl (78-100); Mean Corpuscular Hemoglobin 30.2 pg (26-32); Mean Corpuscular Hgb Concent. 31.1 g/dl (32-36); Mean Platelet Volume 10.1 fl (7.5-11.0); Monocyte (Absolute #) 0.39 (0.0-1.3); Monocytes % 6.1 % (0.0-12.0); Neutrophil % 48.2 % (36.0-66.0); Platelet Count 215 K/mm3 (150-450); Red Blood Count 4.17 M/mm3 (4.1-5.4); Red Cell Distribution Width 13.3 % (11.5-14.0); White Blood Count 6.4 K/mm3 (4.0-10.5)
[2021-04-24 06:20] LABS: ALBUMIN 3.8 g/dL (3.5-5.0); ALKALINE PHOSPHATASE 128 U/L (38-126); ANION GAP 10.8 MEQ/L (5-15); BLOOD UREA NITROGEN 16 mg/dL (7-17); CHLORIDE 103 mmol/L (98-107); Calcium 8.9 mg/dL (8.4-10.2); Carbon Dioxide 26 mmol/L (22-30); EST GLOMERULAR FILTRATION RATE > 60.0 ML/MIN; Glucose 89 mg/dL (74-106); Potassium 4.4 mmol/L (3.5-5.1); SGOT/AST 59 U/L (14-36); SGPT/ALT 145 U/L (0-35); SODIUM 136 mmol/L (137-145); Total Protein 6.2 g/dL (6.3-8.2)
--- NOTE | 2021-04-24 06:40 | ERPHSYRPT ---
- History of Present Illness Time Seen by Provider: 04/24/21 04:30 Historian: patient Exam Limitations: no limitations Patient Subjective Stated Complaint: back pain on the left side Triage Nursing Assessment: pt c/o lt lower flank pain which is coming around to lt side but not all the way around to the abd. Abd lg, soft with active bs x4 quad, nontender. Lt low back area is tender on palpation. Physician History: Patient is a 46-year-old female presents to our ED with complaints of left flank pain that she has had for the past couple days. Patient concerned she may have a kidney stone or possibly a UTI. Patient states she has a history of UTIs. However today's pain is somewhat different. No trauma. No fever. Pain described as an ache that wraps around her left flank towards the anterior flank. No abdominal pain no nausea or vomiting. No diarrhea. No fever. Symptoms are mild to moderate in intensity. No specific worsening improving factors. Patient has not taken any pain medication prior to arrival. Timing/Duration: day(s) (2 days) Activities at Onset: none Quality: aching Abdominal Pain Onset Location: flank Pain Radiation: other (Pain tends to radiate from left posterior flank to left anterior flank.) Severity of Pain-Max: moderate Severity of Pain-Current: mild Modifying Factors: Improves With: movement, other (Palpation to left flank reproduces symptoms.) Associated Symptoms: denies symptoms, No chest pain, No fever/chills, No loss of appetite, No nausea, No neck pain, No vomiting, No weakness Previous symptoms: no prior history Allergies/Adverse Reactions: latex Allergy (Severe, Verified 04/24/21 04:38) Hives Sulfa (Sulfonamide Antibiotics) [Sulfa(Sulfonamide Antibiotics)] Allergy (Verified 04/24/21 04:38) PT STATES THIS AN ALLERGY BECAUSE OF EYE DROPS CAUSING IRRITATION-SHE HAS JUST TAKEN BACTRIM FOR UTI WITHOUT DIFFICULTY Home Medications: Mirtazapine [Remeron] 45 mg PO HS 12/05/13 [History] Alprazolam [Xanax] 1 mg PO QID 03/20/18 [History] Duloxetine HCl 30 mg [Cymbalta 30 MG Capsule] 30 mg PO BID 05/24/19 [History] Folic Acid 1 mg [Folate 1 mg] 1 mg PO DAILY 05/24/19 [History] Lisinopril 20 mg [Zestril 20 MG] 20 mg PO DAILY 05/24/19 [History] Trazodone HCl 50 mg [Desyrel 50 mg] 50 mg PO HS 05/24/19 [History] PANTOPRAZOLE 40 mg Tablet [Protonix 40MG Tablet] 40 mg PO BID 05/28/19 [History] Docusate Sodium [Colace] 100 mg PO DAILY 03/04/21 [History] Fluticasone/Salmeterol [Advair 250-50 Diskus] 1 each IH BID 03/04/21 [History] Montelukast Sodium 10 mg [Singulair 10 MG] 10 mg PO DAILY 03/04/21 [History] Ondansetron HCl [Zofran] 4 mg PO TID 03/04/21 [History] Promethazine HCl 25 mg [Phenergan 25 mg] 25 mg PO Q8HPRN PRN 03/04/21 [History] Hx Tetanus, Diphtheria Vaccination/Date Given: Yes Hx Influenza Vaccination/Date Given: No Hx Pneumococcal Vaccination/Date Given: No Immunizations Up to Date: Yes Travel Risk - International Travel Have you traveled outside of the country in past 3 weeks: No - Coronavirus Screening Are you exhibiting any of the following symptoms?: No Close contact with a COVID-19 positive Pt in past 14-21 Days: No - Vaccine Status Have you recieved a Covid-19 vaccination: No - Review of Systems Constitutional: No Symptoms, No Fever, No Chills Eyes: No Symptoms Ears, Nose, & Throat: No Symptoms Respiratory: No Symptoms, No Cough, No Dyspnea Cardiac: No Symptoms, No Chest Pain, No Edema, No Syncope Abdominal/Gastrointestinal: No Symptoms, No Abdominal Pain, No Nausea, No Vomiting, No Diarrhea Genitourinary Symptoms: No Symptoms, No Dysuria Musculoskeletal: No Symptoms, No Back Pain, No Neck Pain Skin: No Symptoms, No Rash Neurological: No Symptoms, No Dizziness, No Focal Weakness, No Sensory Changes Psychological: No Symptoms Endocrine: No Symptoms Hematologic/Lymphatic: No Symptoms Immunological/Allergic: No Symptoms All Other Systems: Reviewed and Negative - Past Medical History Pertinent Past Medical History: Yes Neurological History: Migraines ENT History: No Pertinent History Cardiac History: Hypertension Respiratory History: No Pertinent History Endocrine Medical History: Hypoglycemia Musculoskeletal History: Rheumatoid Arthritis, Other GI Medical History: GERD, Other History: No Pertinent History Psycho-Social History: Anxiety, Depression Female Reproductive Disorders: No Pertinent History Other Medical History: PT. HAD GASTRIC BYPASS 2013. reactive hypoglycemic diab etic. GOUT - Past Surgical History Past Surgical History: Yes Neuro Surgical History: No Pertinent History Cardiac: No Pertinent History Respiratory: No Pertinent History Gastrointestinal: Cholecystectomy, Other Genitourinary: No Pertinent History Musculoskeletal: Orthopedic Surgery Female Surgical History: Hysterectomy, Section Other Surgical History: , gastric bipass Jul, RFA - Social History Smoking Status: Never smoker Exposure to second hand smoke: Yes Drug Use: none Patient Lives Alone: No - Female History Hx Now: No - Nursing Vital Signs Nursing Vital Signs: Initial Vital Signs Temperature 98.3 F 04/24/21 04:27 Pulse Rate 85 04/24/21 04:27 Respiratory Rate 20 04/24/21 04:27 Blood Pressure 115/89 04/24/21 04:27 O2 Sat by Pulse Oximetry 98 04/24/21 04:27 Pain Scale Pain Intensity 4 - Physical Exam General Appearance: no apparent distress, alert Eye Exam: PERRL/EOMI, eyes nml inspection Ears, Nose, Throat Exam: normal ENT inspection, pharynx normal, moist mucous membranes Neck Exam: normal inspection, non-tender, supple, full range of motion Respiratory Exam: normal breath sounds, lungs clear, airway intact, No respiratory distress Cardiovascular Exam: regular rate/rhythm, normal heart sounds, normal peripheral pulses Gastrointestinal/Abdomen Exam: soft, No tenderness, No mass Back Exam: normal inspection, normal range of motion, No CVA tenderness, No vertebral tenderness Extremity Exam: normal inspection, normal range of motion, pelvis stable Neurologic Exam: alert, oriented x 3, cooperative, normal mood/affect, sensation nml, No motor deficits Skin Exam: normal color, warm, dry SpO2 Interpretation: normal SpO2: 96 O2 Delivery: Room Air - Course Nursing assessment & vital signs reviewed: Yes - CT Exams Abdomen/Pelvis CT Interpretation: Tele-radiologist Report (CT abdomen pelvis negative for kidney stone or ureteral lithiasis. There is a calcified granuloma. Hepatomegaly. Right renal cyst a pelvic mass which is possibly ovarian cyst.) Ordered Tests: Active Orders 24 hr Category Date Time Status ABDOMEN AND PELVIS W/0 CONTRAS [CT] Stat Exams 04/24/21 04:22 Taken CBC W DIFF Stat Lab 04/24/21 05:55 Completed CMP Stat Lab 04/24/21 05:55 Completed HCG,QUALITATIVE URINE Stat Lab 04/24/21 04:27 Completed UA W/RFX UR CULTURE Stat Lab 04/24/21 04:27 Completed Medication Summary Discontinued Medications Generic Name Dose Route Start Last Admin Trade Name Freq PRN Reason Stop Dose Admin Ketorolac Tromethamine 60 mg 04/24/21 04:44 04/24/21 05:29 Toradol 30 Mg Injection IM 04/24/21 04:45 60 mg STAT ONE Administration Ketorolac Tromethamine Confirm 04/24/21 05:25 Toradol 30 Mg Injection Administered 04/24/21 05:26 Dose 60 mg .ROUTE .[employer] (Vozero/Gengibre) ONE Lab/Rad Data: Laboratory Result Diagrams 04/24/21 05:55 04/24/21 05:55 Laboratory Results 04/24/21 04/24/21 04/24/21 Range/Units 05:55 05:55 04:27 WBC 6.4 (4.0-10.5) K/mm3 RBC 4.17 (4.1-5.4) M/mm3 Hgb 12.6 (12.0-16.0) gm/dl Hct 40.5 (35-47) % MCV 97.1 (78-100) fl MCH 30.2 (26-32) pg MCHC 31.1 L (32-36) g/dl RDW 13.3 (11.5-14.0) % Plt Count 215 (150-450) K/mm3 MPV 10.1 (7.5-11.0) fl Gran % 48.2 (36.0-66.0) % Eos # (Auto) 0.26 (0-0.5) Absolute Lymphs (auto) 2.61 (1.0-4.6) Absolute Monos (auto) 0.39 (0.0-1.3) Lymphocytes % 41.1 (24.0-44.0) % Monocytes % 6.1 (0.0-12.0) % Eosinophils % 4.1 (0.00-5.0) % Basophils % 0.5 (0.0-0.4) % Absolute Granulocytes 3.06 (1.4-6.9) Basophils # 0.03 (0-0.4) Sodium 136 L (137-145) mmol/L Potassium 4.4 (3.5-5.1) mmol/L Chloride 103 (98-107) mmol/L Carbon Dioxide 26 (22-30) mmol/L Anion Gap 10.8 (5-15) MEQ/L BUN 16 (7-17) mg/dL Creatinine 0.60 (0.52-1.04) mg/dL Estimated GFR > 60.0 ML/MIN Glucose 89 (74-106) mg/dL Calcium 8.9 (8.4-10.2) mg/dL Total Bilirubin 0.30 (0.2-1.3) mg/dL AST 59 H (14-36) U/L ALT 145 H (0-35) U/L Alkaline Phosphatase 128 H (38-126) U/L Serum Total Protein 6.2 L (6.3-8.2) g/dL Albumin 3.8 (3.5-5.0) g/dL Urine Color (YELLOW) Urine Appearance (CLEAR) Urine pH (5-6) Ur Specific [place] (1.005-1.025) Urine Protein (Negative) Urine Ketones (NEGATIVE) Urine Blood (0-5) Sai/ul Urine Nitrite (NEGATIVE) Urine Bilirubin (NEGATIVE) Urine Urobilinogen (0-1) mg/dL Ur Leukocyte Esterase (NEGATIVE) Urine WBC (Auto) (0-5) /HPF Urine RBC (Auto) (0-2) /HPF U Epithel Cells (Auto) (FEW) /HPF Urine Bacteria (Auto) (NEGATIVE) /HPF Urine Mucus (Auto) (NEGATIVE) /HPF Urine Culture Reflexed (NO) Urine Glucose (NEGATIVE) mg/dL Urine HCG, Qual NEGATIVE (Negative) 04/24/21 Range/Units 04:27 WBC (4.0-10.5) K/mm3 RBC (4.1-5.4) M/mm3 Hgb (12.0-16.0) gm/dl Hct (35-47) % MCV (78-100) fl MCH (26-32) pg MCHC (32-36) g/dl RDW (11.5-14.0) % Plt Count (150-450) K/mm3 MPV (7.5-11.0) fl Gran % (36.0-66.0) % Eos # (Auto) (0-0.5) Absolute Lymphs (auto) (1.0-4.6) Absolute Monos (auto) (0.0-1.3) Lymphocytes % (24.0-44.0) % Monocytes % (0.0-12.0) % Eosinophils % (0.00-5.0) % Basophils % (0.0-0.4) % Absolute Granulocytes (1.4-6.9) Basophils # (0-0.4) Sodium (137-145) mmol/L Potassium (3.5-5.1) mmol/L Chloride (98-107) mmol/L Carbon Dioxide (22-30) mmol/L Anion Gap (5-15) MEQ/L BUN (7-17) mg/dL Creatinine (0.52-1.04) mg/dL Estimated GFR ML/MIN Glucose (74-106) mg/dL Calcium (8.4-10.2) mg/dL Total Bilirubin (0.2-1.3) mg/dL AST (14-36) U/L ALT (0-35) U/L Alkaline Phosphatase (38-126) U/L Serum Total Protein (6.3-8.2) g/dL Albumin (3.5-5.0) g/dL Urine Color YELLOW (YELLOW) Urine Appearance SLIGHTLY CLOUDY (CLEAR) Urine pH 5.0 (5-6) Ur Specific [place] 1.019 (1.005-1.025) Urine Protein NEGATIVE (Negative) Urine Ketones NEGATIVE (NEGATIVE) Urine Blood NEGATIVE (0-5) Sai/ul Urine Nitrite NEGATIVE (NEGATIVE) Urine Bilirubin MODERATE (NEGATIVE) Urine Urobilinogen 2 (0-1) mg/dL Ur Leukocyte Esterase NEGATIVE (NEGATIVE) Urine WBC (Auto) 3-5 (0-5) /HPF Urine RBC (Auto) 3-5 (0-2) /HPF U Epithel Cells (Auto) RARE (FEW) /HPF Urine Bacteria (Auto) RARE (NEGATIVE) /HPF Urine Mucus (Auto) SLIGHT (NEGATIVE) /HPF Urine Culture Reflexed NO (NO) Urine Glucose NEGATIVE (NEGATIVE) mg/dL Urine HCG, Qual (Negative) - Progress Progress: improved Progress Note: Patient reassessed. She feels well. Pain resolved. CT abdomen pelvis negative for kidney stone. Urinalysis negative for UTI. CT scan reveals a lung granuloma hepatomegaly right renal cyst and a pelvic mass. Patient has no pelvic pain. The pelvic mass is possibly an ovarian cyst. Patient understands the importance of follow-up regarding this pelvic mass/ovarian cyst. Patient agrees to follow-up with her primary care doctor within 48 hours for reevaluation. AST slightly elevated. Patient has no right upper quadrant or abdominal pain. Portions of this note were created with voice recognition technology. There may be grammatical, spelling, punctuation or sound alike errors 04/24/21 06:49 Counseled pt/family regarding: lab results, diagnosis, need for follow-up, rad results - Departure Departure Disposition: Home Clinical Impression: Lung granuloma, Hepatomegaly, Renal cyst, Pelvic mass, Ovarian cyst Condition: Stable Critical Care Time: No Referrals: LIZZETTE FOSTER NP [Primary Care Provider] - Additional Instructions: Discharge/Care Plan ADILENE VENEGAS was seen on 04/24/21 in the Emergency Room. The patient was counseled regarding Diagnosis,Lab results, Imaging studies, need for follow up and when to return to the Emergency Room. Prescriptions given: Discharge Note I have spoken with the patient and/or caregivers. I have explained the patient's condition, diagnosis and treatment plan based on the information available to me at this time. I have answered the patient's and/or caregiver's questions and addressed any concerns. The patient and/or caregivers have as good understanding of the patient's diagnosis, condition and treatment plan as can be expected at this point. The vital signs have been stable. The patient's condition is stable and appropriate for discharge from the emergency department. The patient will pursue further outpatient evaluation with the primary care physician or other designated or consulting physician as outlined in the discharge instructions. The patient and/or caregivers are agreeable to this plan of care and follow-up instructions have been explained in detail. The patient and/or caregivers have received these instruction. The patient/and or caregivers are aware that any significant change in condition or worsening of symptoms should prompt an immediate return to this or the closest emergency department or call 911.
[2021-04-24 06:44] VITALS: BP 122/81; PULSE 81
[2021-04-24 06:49] VITALS: O2SAT 96
--- NOTE | 2021-04-25 13:43 | XRAY ---
Exam: CT of the abdomen and pelvis without IV contrast from 04/24/2021. CTDI: 27.33 mGy Comparison: CT of the abdomen and pelvis without IV contrast from 06/28/2020. Indication: 46-year-old female with left flank pain for 7 hours associated with nausea; no hematuria or history of renal stones, but there is clinical concern for this. History of gastric bypass surgery 7 years ago and cholecystectomy 20 years ago. She also has had a "partial hysterectomy". Technique: Non-IV contrast axial images were obtained through the abdomen and pelvis. Reconstructed 2-D coronal and sagittal images were created and reviewed. Findings: Within the lung bases, I see a granulomatous calcification to the right of midline within the subcarinal projection representing no change. A subpleural calcified granuloma is seen at the posterior left lung base. Minimal chronic linear atelectasis/scarring is seen at both posterior lung bases. No pleural fluid is seen. The heart size appears within normal limits. I again see evidence of gastric bypass surgery, probably a Vitaly-en-Y procedure. Incidentally, there is again concentric thickening of the distal thoracic esophageal wall which measures up to 1.1 cm in diameter. This is unchanged. Correlate clinically regarding esophagitis or GERD. I see no evidence of bowel obstruction. However, I do note one small bowel loop adjacent to surgical suture material which measures up to 3.7 cm in width overlying the anterior right hemiabdomen on coronal image #44. It is possible this relates to a peristaltic wave. This is on the opposite side of the patient's pain. Correlate clinically. A moderate amount of scattered stool is seen throughout the colon suggesting some degree of constipation. The appendix is seen within the right lower quadrant and reveals no findings to suggest acute appendicitis. A small amount of air and stool are seen within the appendiceal lumen. There are some high attenuation densities within the distal small bowel lumen which may relate to medication or a GI cocktail. The craniocaudal measurement of the liver is again increased measuring about 21.5 cm in greatest craniocaudal dimension on coronal image #84. Some of this could be due to a Carmen's lobe representing a normal variant of liver shape. No focal hepatic mass or intrahepatic biliary duct distention is seen. Surgical clips consistent with prior cholecystectomy are seen. The spleen is of normal size and reveals multiple granulomatous calcifications within it. The pancreas and adrenal glands appear normal. The kidneys are of unremarkable size and shape. A 1.1 cm in diameter cyst abuts the inferior pole of the right kidney posteriorly representing no change. No renal calculi or hydronephrosis is seen. No other definite renal mass is seen. The ureters appear of normal diameter and reveal no ureterolith. The urinary bladder is mostly empty, but no calcification is seen within its lumen. There is no evidence of abdominal aortic aneurysm or retroperitoneal lymphadenopathy. No free intraperitoneal air or bowel containing ventral hernia is seen. There is minimal fatty umbilical hernia seen on midline sagittal image #116. This is unchanged. Within the pelvis, the uterus is surgically absent. There is a 3.5 cm in diameter cystic structure seen just to the right of midline within the lower pelvis measuring +9 Hounsfield units which likely represents a right ovarian cyst. This appears to be new from 06/28/2020. In addition, in a bit more inferior location and just to left of midline, there is an oval-shaped low attenuation lesion measuring 6.47 m x 5.6 cm in cross section on axial image #106. This appears a bit larger than that seen on 06/28/2020. This measures +10.1 Hounsfield units. It is likely this represents a left ovarian cyst. Consider further evaluation with pelvic ultrasound including transvaginal ultrasound. Some calcified phleboliths are seen within the lower pelvis. No abnormal pelvic lymphadenopathy or free intraperitoneal fluid is seen. No other pelvic mass is seen. Some small postinflammatory lymph nodes are seen within each groin. The skeleton reveals no acute fracture or aggressive bone lesion. There is mild anterior wedging of L1 which is unchanged from 06/28/2020 (i.e. chronic). In addition, there is mild to moderate degenerative disc disease at L5-S1 representing no change. Mild thoracic vertebral endplate spurring is again seen. Impression: 1. I see no evidence of renal/ureteral calculi, hydroureteronephrosis, or other obstructive uropathy. The urinary bladder is almost empty, but no calcification is seen within it. 2. Old healed granulomatous disease, moderate concentric wall thickening of the distal thoracic esophagus (see above), evidence of prior cholecystectomy, hysterectomy, and Vitaly-en-Y procedure, mild hepatomegaly, small right renal cyst, and chronic mild anterior wedging of L1 are again seen. 3. I note mild distention of one small bowel loop just to the right of midline anteriorly within the lower abdomen which measures up to 3.7 cm in diameter. See coronal image #44. No other bowel distention is seen. This could relate to a peristaltic wave. Correlate clinically. Incidentally, the appendix appears unremarkable. 4. There are 2 cystic structures within the lower pelvis, one just to the left of midline and one just to the right of midline. The smaller one on the right appears to be new from 06/28/2020. The one on the left was present before, but may be slightly larger. I believe it is likely these represent ovarian cysts. Consider further evaluation with a pelvic ultrasound to include transvaginal sonography. 5. No other acute process is seen within the abdomen or pelvis.
== END 2021-04-24 06:49 | disposition home or self-care (01) ==
LOC: ED 04:16
DX: J84.10 Pulmonary fibrosis, unspecified (principal); R16.0 Hepatomegaly, not elsewhere classified; N28.1 Cyst of kidney, acquired
CPT/HCPCS: 36415; 74176; 80053; 81001; 84703; 85025; 96372; 99284; J1885

== ENCOUNTER 2022-01-31 19:20 | Emergency (ER) | payer MEDICARE ==
--- NOTE | 2022-01-31 20:05 | ERPHSYRPT ---
- History of Present Illness Time Seen by Provider: 01/31/22 20:00 Source: patient, family Exam Limitations: no limitations Patient Subjective Stated Complaint: pt states "I fell last night taking the dog out." Triage Nursing Assessment: pt ambulated into the er; pt is axo x4; c/o fall; pt states 8/10 pain to left elbow; pt states pain all over; redness to left elbow; warmth present left elbow; strong left radial pulse; good cap refill to LUE; vitals wnl Physician History: pt got tangled up in dog leash and fell onto both elbows and knees yesterday and still pain today. no other injuries or symptoms. chest clear nontender, neuro normal without deficits. no blood thinners. abd soft nontender without peritoneal signs. full ROm other joints without pain. Occurred: yesterday Reason for Fall: tripped Injuries/Pain Location: upper extremity, lower extremity Loss of Consciousness: no loss of consciousness Quality: sharpness Severity of Pain-Max: moderate Severity of Pain-Current: moderate Modifying Factors: Improves With: movement Associated Symptoms (Fall): denies symptoms Allergies/Adverse Reactions: latex Allergy (Severe, Verified 01/31/22 19:36) Hives Sulfa (Sulfonamide Antibiotics) [Sulfa(Sulfonamide Antibiotics)] Allergy (Verified 01/31/22 19:36) PT STATES THIS AN ALLERGY BECAUSE OF EYE DROPS CAUSING IRRITATION-SHE HAS JUST TAKEN BACTRIM FOR UTI WITHOUT DIFFICULTY Home Medications: Mirtazapine [Remeron] 45 mg PO HS 12/05/13 [History] ALPRAZolam [Xanax] 1 mg PO QID 03/20/18 [History] Duloxetine HCl 30 mg [Cymbalta 30 MG Capsule] 30 mg PO BID 05/24/19 [History] Folic Acid 1 mg [Folate 1 mg] 1 mg PO DAILY 05/24/19 [History] Lisinopril 20 mg [Zestril 20 MG] 20 mg PO DAILY 05/24/19 [History] Trazodone HCl 50 mg [Desyrel 50 mg] 50 mg PO HS 05/24/19 [History] PANTOPRAZOLE 40 mg Tablet [Protonix 40MG Tablet] 40 mg PO BID 05/28/19 [History] Docusate Sodium [Colace] 100 mg PO DAILY 03/04/21 [History] Fluticasone/Salmeterol [Advair 250-50 Diskus] 1 each IH BID 03/04/21 [History] Montelukast Sodium 10 mg [Singulair 10 MG] 10 mg PO DAILY 03/04/21 [History] Promethazine HCl 25 mg [Phenergan 25 mg] 25 mg PO Q8HPRN PRN 03/04/21 [History] ondansetron HCL [Zofran] 4 mg PO TID 03/04/21 [History] Hx Tetanus, Diphtheria Vaccination/Date Given: Yes Hx Influenza Vaccination/Date Given: No Hx Pneumococcal Vaccination/Date Given: No Travel Risk - International Travel Have you traveled outside of the country in past 3 weeks: No - Coronavirus Screening Are you exhibiting any of the following symptoms?: No Close contact with a COVID-19 positive Pt in past 14-21 Days: No - Vaccine Status Have you recieved a Covid-19 vaccination: No - Review of Systems Constitutional: No Fever, No Chills Eyes: No Symptoms Ears, Nose, & Throat: No Symptoms Respiratory: No Cough, No Dyspnea Cardiac: No Chest Pain, No Edema, No Syncope Abdominal/Gastrointestinal: No Abdominal Pain, No Nausea, No Vomiting, No Diarrhea Genitourinary Symptoms: No Dysuria Musculoskeletal: Fall, Joint Pain, Joint Swelling, No Back Pain, No Neck Pain Skin: Other (abrasions), No Rash Neurological: No Dizziness, No Focal Weakness, No Sensory Changes Psychological: No Symptoms Endocrine: No Symptoms Hematologic/Lymphatic: No Symptoms Immunological/Allergic: No Symptoms All Other Systems: Reviewed and Negative - Past Medical History Pertinent Past Medical History: Yes Neurological History: Migraines ENT History: No Pertinent History Cardiac History: Hypertension Respiratory History: No Pertinent History Endocrine Medical History: Hypoglycemia Musculoskeletal History: Rheumatoid Arthritis, Other GI Medical History: GERD, Other History: No Pertinent History Psycho-Social History: Anxiety, Depression Female Reproductive Disorders: No Pertinent History Other Medical History: PT. HAD GASTRIC BYPASS 2013. reactive hypoglycemic diabetic. GOUT - Past Surgical History Past Surgical History: Yes Neuro Surgical History: No Pertinent History Cardiac: No Pertinent History Respiratory: No Pertinent History Gastrointestinal: Cholecystectomy, Other Genitourinary: No Pertinent History Musculoskeletal: Orthopedic Surgery Female Surgical History: Hysterectomy, Section Other Surgical History: , gastric bipass Jul, RFA - Social History Smoking Status: Never smoker Exposure to second hand smoke: Yes Drug Use: none Patient Lives Alone: No - Female History Hx Now: No - Nursing Vital Signs Nursing Vital Signs: Initial Vital Signs Temperature 97.8 F 01/31/22 19:36 Pulse Rate 83 01/31/22 19:36 Respiratory Rate 16 01/31/22 19:36 Blood Pressure 117/81 01/31/22 19:36 O2 Sat by Pulse Oximetry 98 01/31/22 19:36 Pain Scale Pain Intensity 8 - [place] Coma Score Best Eye Response ([place]): (4) open spontaneously Best Verbal Response ([place]): (5) oriented Best Motor Response ([place]): (6) obeys commands [place] Total: 15 - Physical Exam General Appearance: no apparent distress, alert Head Injury: no evidence of injury Eye Exam: PERRL/EOMI ENT Exam: airway nml Neck Exam: trachea midline, full range of motion, normal alignment, normal inspection, No tenderness Respiratory/Chest Exam: normal breath sounds, No chest tenderness, No respiratory distress Cardiovascular Exam: normal heart sounds, regular rate/rhythm Gastrointestinal Exam: soft, No tenderness, No distention, No guarding, No ecchymosis Rectal Exam: deferred Back Exam: normal inspection, No vertebral tenderness Extremity Exam: normal inspection, normal range of motion, pelvis stable, contusions, joint swelling, limited range of motion, evidence of injury, No deformities Peripheral Pulses: carotid (R): 2+, carotid (L): 2+, femoral (R): 2+, femoral (L): 2+, dorsalis-pedis (R): 2+, dorsalis-pedis (L): 2+ Neurologic Exam: alert, oriented x 3, cooperative, sensation nml, No motor deficits Skin Exam: normal color, warm, dry SpO2: 98 Procedures - Splinting Location of Splint: Left, Elbow Type of Splint: Orthoglass Short Arm Splint Splint Applied By: ED Nurse Pre-Proc Neuro Vasc Exam: normal Post-Proc Neuro Vasc Exam: neurovascular intact (the ulnar tingling is unchanged but no neuro deficits. ), unchanged from pre-exam - Course Nursing assessment & vital signs reviewed: Yes - Radiology Exams Right Knee X-ray Interpretation: Reviewed by me, Other (no obvious fx - but effusion) Left Knee X-ray Interpretation: Reviewed by me, Other (no obvious fracture) Left Elbow X-ray Interpretation: Reviewed by me, Other (fat pad sign but no definite fx seen) Right Elbow X-ray Interpretation: Reviewed by me, Other (no obvious fracture) Ordered Tests: Active Orders 24 hr Category Date Time Status ELBOW (MINIMUM 3 VIEWS) Stat Exams 01/31/22 20:45 Taken ELBOW (MINIMUM 3 VIEWS) Stat Exams 01/31/22 20:46 Taken KNEE (1 OR 2 VIEW) Stat Exams 01/31/22 20:17 Taken KNEE (1 OR 2 VIEW) Stat Exams 01/31/22 20:22 Taken Medication Summary Discontinued Medications Generic Name Dose Route Start Last Admin Trade Name Freq PRN Reason Stop Dose Admin Diphtheria/Tetanus/Acell Pertussis 0.5 ml 01/31/22 20:17 01/31/22 20:29 Tdap --Diph,Pertuss(Acell),Tet Vac/Pf 0.5 Ml Vial IM 01/31/22 20:18 0.5 ml .ONCE ONE Administration Diphtheria/Tetanus/Acell Pertussis Confirm 01/31/22 20:29 Tdap --Diph,Pertuss(Acell),Tet Vac/Pf 0.5 Ml Vial Administered 01/31/22 20:30 Dose 0.5 ml IM .STK-MED ONE Ketorolac Tromethamine 60 mg 01/31/22 21:26 01/31/22 21:30 Ketorolac Tromethamine 30 Mg/Ml Inj IM 01/31/22 21:27 60 mg STAT ONE Administration Ketorolac Tromethamine Confirm 01/31/22 21:29 Ketorolac Tromethamine 30 Mg/Ml Inj Administered 01/31/22 21:30 Dose 60 mg .ROUTE .STK-MED ONE - Progress Progress: improved, re-examined Progress Note: 01/31/22 21:35 some tingling in left ulnar distribution . but sensation is intact. no neck pain or neuro findings. may be impact neuropraxia or from joint impact at canal or local swelling or neuropraxia or occult fx - pt advised will splint and refer and also right knee immobilizer - she declines crutches. final x-ray reports this week ansd will see , tuesday for f/u or return meantime if any concerns. Counseled pt/family regarding: diagnosis, need for follow-up, rad results - Departure Departure Disposition: Home Clinical Impression: possible occult left elbow fx with neuro, Neurapraxia of left ulnar nerve, Injury of ligament of right knee, contusion right elbow and left knee Condition: Good Critical Care Time: No Referrals: SAMANTHA HERMAN MD [Primary Care Provider] - Follow up/PCP as directed Instructions: Contusion (DC), Cubital Tunnel Syndrome, Elbow Fracture (DC), Internal Derangement of the Knee (DC), Knee Immobilizer (DC) Additional Instructions: there may be an occult left elbow fracture and ulnar nerve injury or neuropraxia or cubital tunnel injury so we are including these instructions. The nerve symptoms may be from the impact and temporary, or also from the possible fracture and that impact. Sometimes further surgery is needed to release the nerve so followup is important. there also could be right knee ligament injury. final x-ray reports this week and follow-up with your Dr as planned. Return meantime if any concerns.
[2022-01-31] MEDS ORDERED: Adacel Vial IM ONE ×2 (20:17→20:29)
[2022-01-31] MEDS ORDERED: TORAdol 30 mg Injection IM ONE (21:26)
[2022-01-31] MEDS ORDERED: TORAdol 30 mg Injection ONE (21:29)
[2022-01-31 22:18] VITALS: BP 125/91; PULSE 82; O2SAT 97
--- NOTE | 2022-02-01 07:21 | XRAY ---
Indication: Pain following fall. Comparison: None AP/lateral right knee demonstrates a few tiny anterior lower leg soft tissue calcified granulomas. No other bony, articular, or soft tissue abnormalities.
--- NOTE | 2022-02-01 07:21 | XRAY ---
Indication: Pain following fall. Comparison: None AP/lateral left knee demonstrates mild medial joint space narrowing/spurring. No other bony, articular, or soft tissue abnormalities.
--- NOTE | 2022-02-01 07:23 | XRAY ---
Indication: Pain following fall. Comparison: None 3 view left elbow demonstrates mild posterior soft tissue swelling and tiny spurring olecranon process. No other bony, articular, or soft tissue abnormalities.
--- NOTE | 2022-02-01 07:23 | XRAY ---
Indication: Pain following fall. Comparison: None 3 view right elbow demonstrates tiny spurring olecranon process. No other bony, articular, or soft tissue abnormalities.
== END 2022-01-31 22:35 | disposition home or self-care (01) ==
LOC: ED 19:20
DX: S59.902A Unspecified injury of left elbow, initial encounter (principal); S83.91XA Sprain of unspecified site of right knee, initial encounter; S64.02XA Injury of ulnar nerve at wrist and hand level of left arm, initial encounter; S50.01XA Contusion of right elbow, initial encounter; S80.02XA Contusion of left knee, initial encounter; W01.10XA Fall on same level from slipping, tripping and stumbling with subsequent striking against unspecified object, initial encounter; Y93.K1 Activity, walking an animal; I10 Essential (primary) hypertension; Z79.899 Other long term (current) drug therapy; Z28.310 Unvaccinated for COVID-19
CPT/HCPCS: 29125; 73080; 73560; 90471; 90715; 96372; 99284; J1885; L1830

== ENCOUNTER 2022-09-27 01:53 | Emergency (ER) | payer MEDICARE ==
[2022-09-27] MEDS ORDERED: Zofran 4 MG/2 ML VIAL IV ONE (02:22)
[2022-09-27] MEDS ORDERED: BABY ASPIRIN 81 MG CHEW PO ONE (02:22)
[2022-09-27] MEDS ORDERED: Zofran 4 MG/2 ML VIAL ONE (02:39)
[2022-09-27] MEDS ORDERED: PROTONIX 40 MG IV IV ONE ×2 (02:39→02:42)
[2022-09-27] MEDS ORDERED: BABY ASPIRIN 81 MG CHEW ONE (02:39)
[2022-09-27] MEDS ORDERED: GI COCKTAIL 45 ML (Maalox/Lidocaine) PO ONE (02:39)
[2022-09-27] MEDS ORDERED: MAALOX ES 30 ML UNIT DOSE ONE (02:42)
[2022-09-27] MEDS ORDERED: XYLOCAINE VISCOUS 2% 15 ML CUP ONE (02:42)
[2022-09-27 02:44] LABS: Absolute Neutrophil Ct (ANC) 7.18 x10^3/uL (1.4-6.9); BASOPHIL % 0.2 % (0.0-0.4); Basophil (Absolute #) 0.02 x10^3/uL (0-0.4); Eosinophil % 1.6 % (0.00-5.0); Eosinophil (Absolute #) 0.16 x10^3/uL (0-0.5); Hematocrit 43.2 % (35-47); IMMATURE GRAN # 0.04 x10^3u/L (0.00-0.03); IMMATURE GRAN % 0.4 % (0.00-0.4); Lymphocyte (Absolute #) 1.91 x10^3/uL (1.0-4.6); Lymphocytes % 19.3 % (24.0-44.0); Mean Cell Volume 95.4 fL (78-100); Mean Corpuscular Hemoglobin 30.9 pg (26-32); Mean Corpuscular Hgb Concent. 32.4 g/dL (32-36); Mean Platelet Volume 9.6 fL (7.5-11.0); Monocytes % 6.1 % (0.0-12.0); Neutrophil % 72.4 % (36.0-66.0); Platelet Count 271 x10^3/uL (150-450); Red Blood Count 4.53 x10^6/uL (4.1-5.4); Red Cell Distribution Width 12.9 % (11.5-14.0); White Blood Count 9.9 x10^3/uL (4.0-10.5)
[2022-09-27 02:52] LABS: ALBUMIN 4.9 g/dL (3.5-5.0); ALKALINE PHOSPHATASE 106 U/L (38-126); AMYLASE 57 U/L (30-110); ANION GAP 15.1 MEQ/L (5-15); BLOOD UREA NITROGEN 15 mg/dL (7-17); CHLORIDE 99 mmol/L (98-107); Calcium 9.2 mg/dL (8.4-10.2); Carbon Dioxide 24 mmol/L (22-30); Creatinine 1 0.92 mg/dL (0.52-1.04); EST GLOMERULAR FILTRATION RATE > 60.0 ML/MIN; Glucose 89 mg/dL (74-106); LIPASE 63 U/L (23-300); Potassium 4.1 mmol/L (3.5-5.1); SGOT/AST 47 U/L (14-36); SGPT/ALT 84 U/L (0-35); SODIUM 134 mmol/L (137-145); Total Protein 7.7 g/dL (6.3-8.2)
--- NOTE | 2022-09-27 02:55 | ERPHSYRPT ---
- History of Present Illness Time Seen by Provider: 09/27/22 02:15 Historian: patient, old records Exam Limitations: no limitations Patient Subjective Stated Complaint: chest pain Triage Nursing Assessment: pt to ED c/o CP onset last night at 1999. pt rates 7/10 pain that beings upper epigastric region and radiates up into chest and neck and through to back. pt states that pain increases to 9/10 when moving or arching back. reports hx GERD but states this pain feels more like pressure than a burning sensation. heart sounds clear, lung sounds clear and equal bilaterally. abd sounds active in all quads. Physician History: This is a 47-year-old white female patient of Dr. Herman who presents with chest pain that began at 8 PM last evening. She describes the chest pain as a pressure in the substernal epigastric area that is radiating straight through to her back. Patient has had a cholecystectomy in the past. In 2013 she underwent a gastric bypass. She had a hysterectomy as well. Patient states she has int ermittently had this type of symptom but never this intense and never lasting this long. Patient took Carafate at 2300 last evening without benefit. Patient has no diagnosed coronary artery disease. She does have a history of gastroesophageal reflux disease, hypertension, anxiety, hypoglycemic episodes, rheumatoid arthritis and migraine headaches. Timing/Duration: yesterday, worse Quality: pressure Abdominal Pain Onset Location: epigastric Pain Radiation: back Severity of Pain-Max: moderate Severity of Pain-Current: moderate Modifying Factors: Improves With: nothing Associated Symptoms: chest pain, nausea, No headache, No shortness of breath, No vomiting Previous symptoms: no prior history, no recent treatment Allergies/Adverse Reactions: latex Allergy (Severe, Verified 09/27/22 02:06) Hives Sulfa (Sulfonamide Antibiotics) [Sulfa(Sulfonamide Antibiotics)] Allergy (Verified 09/27/22 02:06) PT STATES THIS AN ALLERGY BECAUSE OF EYE DROPS CAUSING IRRITATION-SHE HAS JUST TAKEN BACTRIM FOR UTI WITHOUT DIFFICULTY Home Medications: Mirtazapine [Remeron] 45 mg PO HS 12/05/13 [History] ALPRAZolam [Xanax] 1 mg PO QID 03/20/18 [History] Duloxetine HCl 30 mg [Cymbalta 30 MG Capsule] 30 mg PO BID 05/24/19 [History] Folic Acid 1 mg [Folate 1 mg] 1 mg PO DAILY 05/24/19 [History] Lisinopril 20 mg [Zestril 20 MG] 10 mg PO DAILY 05/24/19 [History] Trazodone HCl 50 mg [Desyrel 50 mg] 150 mg PO HS 05/24/19 [History] PANTOPRAZOLE 40 mg Tablet [Protonix 40MG Tablet] 40 mg PO BID 05/28/19 [History] ondansetron HCL [Zofran] 4 mg PO TID 03/04/21 [History] Bupropion HCl Xl 150 mg [Wellbutrin XL 150 MG] 150 mg PO DAILY 09/27/22 [History] Buspirone HCl 30 mg PO BID 09/27/22 [History] Colchicine 0.6 mg PO DAILY 09/27/22 [History] Ferrous Sulfate 325 mg [Feosol 325 mg] 325 mg PO BID 09/27/22 [History] Sertraline HCl [Zoloft] 100 mg PO DAILY 09/27/22 [History] Sucralfate 1 gm PO HS 09/27/22 [History] Tizanidine HCl [Zanaflex] 4 mg PO DAILY PRN PRN 09/27/22 [History] Hx Tetanus, Diphtheria Vaccination/Date Given: Yes Hx Influenza Vaccination/Date Given: No Hx Pneumococcal Vaccination/Date Given: No Immunizations Up to Date: No Travel Risk - International Travel Have you traveled outside of the country in past 3 weeks: No - Coronavirus Screening Are you exhibiting any of the following symptoms?: No Close contact with a COVID-19 positive Pt in past 14-21 Days: No - Vaccine Status Have you recieved a Covid-19 vaccination: No - Review of Systems Constitutional: No Symptoms Eyes: No Symptoms Ears, Nose, & Throat: No Symptoms Respiratory: No Symptoms Cardiac: Chest Pain Abdominal/Gastrointestinal: Abdominal Pain, Nausea, Appetite Changes, No Vomiting, No Diarrhea, No Constipation Genitourinary Symptoms: No Symptoms Musculoskeletal: No Symptoms Skin: No Symptoms Neurological: No Symptoms Psychological: No Symptoms Endocrine: No Symptoms Hematologic/Lymphatic: No Symptoms Immunological/Allergic: No Symptoms All Other Systems: Reviewed and Negative - Past Medical History Pertinent Past Medical History: Yes Neurological History: Migraines ENT History: No Pertinent History Cardiac History: Hypertension Respiratory History: No Pertinent History Endocrine Medical History: Hypoglycemia Musculoskeletal History: Rheumatoid Arthritis, Other GI Medical History: GERD, Other History: No Pertinent History Psycho-Social History: Anxiety, Depression Female Reproductive Disorders: No Pertinent History Other Medical History: PT. HAD GASTRIC BYPASS 2013. reactive hypoglycemic diabetic. GOUT - Past Surgical History Past Surgical History: Yes Neuro Surgical History: No Pertinent History Cardiac: No Pertinent History Respiratory: No Pertinent History Gastrointestinal: Cholecystectomy, Other Genitourinary: No Pertinent History Musculoskeletal: Orthopedic Surgery Female Surgical History: Hysterectomy, Section Other Surgical History: , gastric bipass Jul, RFA - Social History Smoking Status: Never smoker Exposure to second hand smoke: Yes Drug Use: none Patient Lives Alone: No - Female History Hx Now: No (hysterectomy) - Nursing Vital Signs Nursing Vital Signs: Initial Vital Signs Temperature 97.1 F 09/27/22 01:54 Pulse Rate 114 H 09/27/22 01:54 Respiratory Rate 16 09/27/22 01:54 Blood Pressure 99/81 09/27/22 01:54 O2 Sat by Pulse Oximetry 98 09/27/22 01:54 Pain Scale Pain Intensity 4 - Physical Exam General Appearance: no apparent distress, alert, anxiety Eye Exam: PERRL/EOMI, eyes nml inspection Ears, Nose, Throat Exam: normal ENT inspection, moist mucous membranes Neck Exam: normal inspection, non-tender, supple, full range of motion Respiratory Exam: normal breath sounds, chest tenderness, lungs clear, airway intact, No respiratory distress Cardiovascular Exam: normal peripheral pulses, tachycardia Gastrointestinal/Abdomen Exam: soft, normal bowel sounds, No tenderness Pelvic Exam: not done Rectal Exam: not done Back Exam: normal inspection, normal range of motion, No CVA tenderness, No vertebral tenderness Extremity Exam: normal inspection, normal range of motion, pelvis stable Neurologic Exam: alert, oriented x 3, cooperative, heel brusher II-XII nml as tested, normal mood/affect, nml cerebellar function, nml station & gait, sensation nml Skin Exam: normal color, warm, dry Lymphatic Exam: No adenopathy SpO2 Interpretation: normal SpO2: 98 O2 Delivery: Room Air - Course Nursing assessment & vital signs reviewed: Yes EKG Interpreted by Me: RATE ([id number]), Sinus Tach, Right Bude Deviation, NORMAL INTERVALS, NORMAL QRS, NORMAL ST-T, Other (No acute ischemic changes on today's EKG.) Ordered Tests: Active Orders 24 hr Category Date Time Status EKG-ER Only STAT Care 09/27/22 02:22 Active IV Insertion STAT Care 09/27/22 02:22 Active CHEST 1 VIEW (PORTABLE) Stat Exams 09/27/22 02:22 Taken CHEST WITH CONTRAST [CT] Stat Exams 09/27/22 03:16 Taken AMYLASE Stat Lab 09/27/22 02:41 Completed CBC W DIFF Stat Lab 09/27/22 02:41 Completed CMP Stat Lab 09/27/22 02:41 Completed D-DIMER QUANTITATIVE Stat Lab 09/27/22 02:41 Completed LIPASE Stat Lab 09/27/22 02:41 Completed PROTIME WITH INR Stat Lab 09/27/22 02:41 Completed TROPONIN Q4H Lab 09/27/22 02:41 Completed TROPONIN Q4H Lab 09/27/22 06:30 Ordered TROPONIN Q4H Lab 09/27/22 10:30 Ordered Medication Summary Discontinued Medications Generic Name Dose Route Start Last Admin Trade Name Freq PRN Reason Stop Dose Admin Al Hydrox/Mg Hydrox/Simethicone Confirm 09/27/22 02:42 Mag Hydrox/Al Hydrox/Simeth 30 Ml Udcup Administered 09/27/22 02:43 Dose 30 ml .ROUTE .STK-MED ONE Aspirin 324 mg 09/27/22 02:22 09/27/22 02:40 Aspirin 81 Mg Tab.Chew PO 09/27/22 02:23 324 mg STAT ONE Administration Aspirin Confirm 09/27/22 02:39 Aspirin 81 Mg Tab.Chew Administered 09/27/22 02:40 Dose 324 mg .ROUTE .STK-MED ONE Sodium Chloride 500 mls @ 500 mls/hr 09/27/22 03:16 09/27/22 04:29 Sodium Chloride 0.9% 500 Ml IV 09/27/22 04:15 500 mls/hr .Q1H ONE Administration Sodium Chloride Confirm 09/27/22 03:18 Sodium Chloride 0.9% 500 Ml Administered 09/27/22 03:19 Dose 500 mls @ ud IV .STK-MED ONE Lidocaine HCl Confirm 09/27/22 02:42 Lidocaine Hcl 2% Viscous 15 Ml Udcup Administered 09/27/22 02:43 Dose 15 ml .ROUTE .STK-MED ONE Magnesium Hydroxide 45 ml 09/27/22 02:39 09/27/22 02:45 Mag Hydrx/Alum Hyd/Simeth/Lido 45 Ml Bottle PO 09/27/22 02:40 45 ml STAT ONE Administration Morphine Sulfate 4 mg 09/27/22 04:36 Morphine Sulfate 4 Mg/Ml Injection IV 09/27/22 04:37 STAT ONE Ondansetron HCl 4 mg 09/27/22 02:22 09/27/22 02:40 Ondansetron Hcl 4 Mg/2 Ml Vial IV 09/27/22 02:23 4 mg STAT ONE Administration Ondansetron HCl Confirm 09/27/22 02:39 Ondansetron Hcl 4 Mg/2 Ml Vial Administered 09/27/22 02:40 Dose 4 mg .ROUTE .STK-MED ONE Pantoprazole Sodium 40 mg 09/27/22 02:39 09/27/22 02:44 Pantoprazole 40 Mg Vial IV 09/27/22 02:40 40 mg STAT ONE Administration Pantoprazole Sodium Confirm 09/27/22 02:42 Pantoprazole 40 Mg Vial Administered 09/27/22 02:43 Dose 40 mg IV .STK-MED ONE Lab/Rad Data: Laboratory Result Diagrams 09/27/22 02:41 09/27/22 02:41 Laboratory Results 09/27/22 09/27/22 09/27/22 Range/Units 03:10 02:41 02:41 WBC (4.0-10.5) x10^3/uL RBC (4.1-5.4) x10^6/uL Hgb (12.0-16.0) g/dL Hct (35-47) % MCV (78-100) fL MCH (26-32) pg MCHC (32-36) g/dL RDW (11.5-14.0) % Plt Count (150-450) x10^3/uL MPV (7.5-11.0) fL Gran % (36.0-66.0) % Immature Gran % (Auto) (0.00-0.4) % Nucleat RBC Rel Count (0.00-0.1) % Eos # (Auto) (0-0.5) x10^3/uL Immature Gran # (Auto) (0.00-0.03) x10^3u/L Absolute Lymphs (auto) (1.0-4.6) x10^3/uL Absolute Monos (auto) (0.0-1.3) x10^3/uL Absolute Nucleated RBC (0.00-0.01) x10^3u/L Lymphocytes % (24.0-44.0) % Monocytes % (0.0-12.0) % Eosinophils % (0.00-5.0) % Basophils % (0.0-0.4) % Absolute Granulocytes (1.4-6.9) x10^3/uL Basophils # (0-0.4) x10^3/uL PT 10.1 (9.4-12.5) SECONDS INR 0.92 (0.8-3.0) D-Dimer 2.45 H* (0.0-0.50) mg/L Sodium (137-145) mmol/L Potassium (3.5-5.1) mmol/L Chloride (98-107) mmol/L Carbon Dioxide (22-30) mmol/L Anion Gap (5-15) MEQ/L BUN (7-17) mg/dL Creatinine (0.52-1.04) mg/dL Estimated GFR ML/MIN Glucose (74-106) mg/dL Calcium (8.4-10.2) mg/dL Total Bilirubin (0.2-1.3) mg/dL AST (14-36) U/L ALT (0-35) U/L Alkaline Phosphatase (38-126) U/L Troponin I < 0.012 (0.000-0.034) ng/mL Serum Total Protein (6.3-8.2) g/dL Albumin (3.5-5.0) g/dL Amylase (30-110) U/L Lipase (23-300) U/L Influenza Type A Ag NEGATIVE (NEGATIVE) Influenza Type B Ag NEGATIVE (NEGATIVE) RSV (PCR) NEGATIVE (Negative) SARS-CoV-2 (PCR) NEGATIVE (NEGATIVE) 09/27/22 09/27/22 Range/Units 02:41 02:41 WBC 9.9 (4.0-10.5) x10^3/uL RBC 4.53 (4.1-5.4) x10^6/uL Hgb 14.0 (12.0-16.0) g/dL Hct 43.2 (35-47) % MCV 95.4 (78-100) fL MCH 30.9 (26-32) pg MCHC 32.4 (32-36) g/dL RDW 12.9 (11.5-14.0) % Plt Count 271 (150-450) x10^3/uL MPV 9.6 (7.5-11.0) fL Gran % 72.4 H (36.0-66.0) % Immature Gran % (Auto) 0.4 (0.00-0.4) % Nucleat RBC Rel Count 0.0 (0.00-0.1) % Eos # (Auto) 0.16 (0-0.5) x10^3/uL Immature Gran # (Auto) 0.04 H (0.00-0.03) x10^3u/L Absolute Lymphs (auto) 1.91 (1.0-4.6) x10^3/uL Absolute Monos (auto) 0.60 (0.0-1.3) x10^3/uL Absolute Nucleated RBC 0.00 (0.00-0.01) x10^3u/L Lymphocytes % 19.3 L (24.0-44.0) % Monocytes % 6.1 (0.0-12.0) % Eosinophils % 1.6 (0.00-5.0) % Basophils % 0.2 (0.0-0.4) % Absolute Granulocytes 7.18 H (1.4-6.9) x10^3/uL Basophils # 0.02 (0-0.4) x10^3/uL PT (9.4-12.5) SECONDS INR (0.8-3.0) D-Dimer (0.0-0.50) mg/L Sodium 134 L (137-145) mmol/L Potassium 4.1 (3.5-5.1) mmol/L Chloride 99 (98-107) mmol/L Carbon Dioxide 24 (22-30) mmol/L Anion Gap 15.1 H (5-15) MEQ/L BUN 15 (7-17) mg/dL Creatinine 0.92 (0.52-1.04) mg/dL Estimated GFR > 60.0 ML/MIN Glucose 89 (74-106) mg/dL Calcium 9.2 (8.4-10.2) mg/dL Total Bilirubin 0.60 (0.2-1.3) mg/dL AST 47 H (14-36) U/L ALT 84 H (0-35) U/L Alkaline Phosphatase 106 (38-126) U/L Troponin I (0.000-0.034) ng/mL Serum Total Protein 7.7 (6.3-8.2) g/dL Albumin 4.9 (3.5-5.0) g/dL Amylase 57 (30-110) U/L Lipase 63 (23-300) U/L Influenza Type A Ag (NEGATIVE) Influenza Type B Ag (NEGATIVE) RSV (PCR) (Negative) SARS-CoV-2 (PCR) (NEGATIVE) - Progress Progress: improved, re-examined Progress Note: 09/27/22 02:55 Chest x-ray was interpreted by me. There is no evidence of any acute cardiopulmonary process. 09/27/22 04:45 CT scan of the chest with contrast is negative for pulmonary embolus and negative for pneumonia. However, the esophagus is fluid-filled, possibly secondary to reduced motility due to distal esophageal wall thickening. There is moderate distal esophageal wall thickening possibly edema/inflammation. There is no mention of any free air, abscess or esophageal leak. This patient's medical issue is 1 of moderate complexity. This is based on review of the patient's past medical history, medication list and medication allergy list as well as history of present illness and physical findings on examination. Given the above issues, I opted to place an intravenous line, perform a twelve-lead EKG which I interpreted on my own, draw blood work, perform a chest x-ray which I interpreted on my own. Based on the patient's symptoms I provided her with Protonix intravenously as well as a GI cocktail. I reviewed the results of all the studies including the above-stated findings of the CT scan of the chest with contrast. Patient had a Vitaly-en-Y gastric bypass surgery performed in 2013. The discharge plan is for the patient to call her surgeon at [facility] this morning to obtain further instructions and recommendations. She will avoid fatty greasy spicy foods and drink clear liquids to full liquids only until she gets further instructions from her gastric bypass surgeon. Patient is to continue her other medication as prescribed. Counseled pt/family regarding: lab results, diagnosis, need for follow-up, rad results Medical Desision Making - Discussion of managment Reviewed:: Test results Agreed on:: Treatment plan, need for follow-up - Diagnostic Testing Diagnostic test were ordered, analyzed, and reviewed by me: Yes Radiological Interpretation: Interpreted by me, Reviewed by me, Teleradiologist Report - Risk of complications Low Risk: Low risk of morbidity from additional dx testing or treatment - Departure Departure Disposition: Home Clinical Impression: Non-cardiac chest pain, Esophageal edema, Esophageal abnormality Condition: Stable Critical Care Time: No Referrals: SAMANTHA HERMAN MD [Primary Care Provider] - Follow up/PCP as directed Additional Instructions: Avoid fatty greasy spicy foods. Consume clear liquids to full liquid diet only until you get further recommendations on diet from your gastric bypass surgeon. Call your gastric bypass surgeon at [facility] this morning at 9 AM to discuss further management of the esophageal inflammation/edema findings. Take all your medication as prescribed
[2022-09-27 03:09] LABS: INR 0.92 (0.8-3.0); PROTIME 10.1 SECONDS (9.4-12.5)
[2022-09-27 03:14] LABS: D-DIMER QUANTITATIVE 2.45 mg/L (0.0-0.50)
[2022-09-27] MEDS ORDERED: Sodium Chloride 0.9% 500 ML 500 ML IV ONE ×2 (03:16→03:18)
[2022-09-27 03:49] LABS: INFLUENZA A NEGATIVE (NEGATIVE); INFLUENZA B NEGATIVE (NEGATIVE); RESPIRATORY SYNCTIAL VIRUS NEGATIVE (Negative); SARS-CoV-2 Xpert Express NEGATIVE (NEGATIVE)
[2022-09-27] MEDS ORDERED: MORPHINE SULFATE 4 MG INJ IV ONE (04:36)
[2022-09-27] MEDS ORDERED: MORPHINE SULFATE 4 MG INJ ONE (04:53)
[2022-09-27 05:11] VITALS: BP 101/68; PULSE 101; O2SAT 93
--- NOTE | 2022-09-27 09:12 | XRAY ---
Indication: Chest pain. Comparison: January 23, 2020 Portable chest again demonstrates normal heart and lungs with incidental left mid lung calcified granuloma. Bony thorax intact. No new/acute findings.
--- NOTE | 2022-09-27 09:12 | XRAY ---
Indication: Chest pain. Elevated d-dimer. Multiple contiguous axial images obtained through the chest using 100 cc Isovue 370 contrast and PE protocol. Comparison: None Good opacification of the pulmonary arteries to include the lobar and segmental branches. No pulmonary embolus. Heart is not enlarged. Aorta is normal in course and caliber. Small subcarinal calcified nodes. No pathologic mediastinal/hilar lymphadenopathy. Small hiatal hernia with partial intrathoracic stomach. Visualized esophagus mildly fluid distended presumed from gastroesophageal reflux. Lungs demonstrates mild basilar subsegmental atelectasis/scarring and small left lower lobe calcified granuloma. No suspicious pulmonary mass, infiltrate, effusion, or pneumothorax. Bony thorax intact with mild degenerative changes throughout the spine. Minimal L1 anterior wedging deformity unchanged with respect to CT abdomen/pelvis April 24, 2021. Limited upper abdomen demonstrates fatty liver, cholecystectomy, gastric bypass surgery, and splenic calcified granulomas. Impression: 1. Negative pulmonary embolus. Bibasilar subsegmental atelectasis. No acute cardiopulmonary abnormalities. 2. Small hiatal hernia with partial intrathoracic stomach. Fluid distended esophagus favoring GERD. 3. Chronic findings including fatty liver, chronic bony findings, and old granulomatous disease. Comment: Preliminary interpretation made by [facility]. No critical discrepancy.
== END 2022-09-27 05:15 | disposition home or self-care (01) ==
LOC: ED 01:53
DX: R07.89 Other chest pain (principal); K22.9 Disease of esophagus, unspecified; Z98.84 Bariatric surgery status; Z98.0 Intestinal bypass and anastomosis status; I10 Essential (primary) hypertension; Z79.899 Other long term (current) drug therapy; Z28.310 Unvaccinated for COVID-19
CPT/HCPCS: 0241U; 36000; 36415; 71045; 71260; 80053; 82150; 83690; 84484; 85025; 85379; 85610; 93005; 96374; 99284; J2270; J2405; A9270-GY

== ENCOUNTER 2023-04-10 11:32 | Emergency (ER) | payer MEDICARE ==
[2023-04-10 11:43] VITALS: TEMP 97.5
[2023-04-10] MEDS ORDERED: GI COCKTAIL 45 ML (Maalox/Lidocaine) PO ONE (12:46)
[2023-04-10] MEDS ORDERED: XYLOCAINE VISCOUS 2% 15 ML CUP ONE (12:47)
[2023-04-10] MEDS ORDERED: MAALOX ES 30 ML UNIT DOSE ONE (12:47)
--- NOTE | 2023-04-10 12:49 | ERPHSYRPT ---
- History of Present Illness Time Seen by Provider: 04/10/23 12:44 Source: patient, family Exam Limitations: no limitations Patient Subjective Stated Complaint: PT states "I have had chest pain for the past week and it has been constant. I have also had acid reflux horribly as well." Triage Nursing Assessment: Pt presented alert and oriented X 3, skin wpd. Pt ambulates with an upright steady gait, able to speak in clear full sentences. PT in no apparent respiratory distress. Pt resting comfortably on the bed. Physician History: Hx confirmed independently with interview with sister due to complicated details pt unsure of to make sure. Pt had R in Y bypass 9 years ago and GI trouble since. But today much worse with pain on swallowing and some vomiting . Mild tenderness abd without peritoneal signs but radiating into chest. No Hx of ht dx in herslf but sister has CAD . No hx PE or DVT and only SOB when pain severe in swallowing. Chest clear. Ht reg without M. Ext without edema. Timing/Duration: day(s) Severity: moderate Modifying Factors: Improves With: eating, other (swallowing) Associated Symptoms: nausea, vomiting, abdominal pain, heartburn, chest pain Allergies/Adverse Reactions: latex Allergy (Severe, Verified 09/27/22 02:06) Hives Sulfa (Sulfonamide Antibiotics) [Sulfa(Sulfonamide Antibiotics)] Allergy (Verified 09/27/22 02:06) PT STATES THIS AN ALLERGY BECAUSE OF EYE DROPS CAUSING IRRITATION-SHE HAS JUST TAKEN BACTRIM FOR UTI WITHOUT DIFFICULTY contrast dye Allergy (Severe, Uncoded 04/10/23 11:43) Swelling Home Medications: Mirtazapine [Remeron] 45 mg PO HS 12/05/13 [History] ALPRAZolam [Xanax] 1 mg PO QID 03/20/18 [History] Duloxetine HCl 30 mg [Cymbalta 30 MG Capsule] 30 mg PO BID 05/24/19 [History] Folic Acid 1 mg [Folate 1 mg] 1 mg PO DAILY 05/24/19 [History] Lisinopril 20 mg [Zestril 20 MG] 10 mg PO DAILY 05/24/19 [History] Trazodone HCl 50 mg [Desyrel 50 mg] 150 mg PO HS 05/24/19 [History] PANTOPRAZOLE 40 mg Tablet [Protonix 40MG Tablet] 40 mg PO BID 05/28/19 [History] ondansetron HCL [Zofran] 4 mg PO DAILY 03/04/21 [History] Bupropion HCl Xl 150 mg [Wellbutrin XL 150 MG] 150 mg PO DAILY 09/27/22 [History] Buspirone HCl 30 mg PO BID 09/27/22 [History] Colchicine 0.6 mg PO DAILY 09/27/22 [History] Ferrous Sulfate 325 mg [Feosol 325 mg] 325 mg PO BID 09/27/22 [History] Sertraline HCl [Zoloft] 100 mg PO DAILY 09/27/22 [History] Sucralfate 1 gm PO HS 09/27/22 [History] Tizanidine HCl [Zanaflex] 4 mg PO DAILY PRN PRN 09/27/22 [History] Hx Tetanus, Diphtheria Vaccination/Date Given: Yes Hx Influenza Vaccination/Date Given: No Hx Pneumococcal Vaccination/Date Given: No Immunizations Up to Date: No Travel Risk - International Travel Have you traveled outside of the country in past 3 weeks: No - Coronavirus Screening Are you exhibiting any of the following symptoms?: No Close contact with a COVID-19 positive Pt in past 14-21 Days: No - Vaccine Status Have you recieved a Covid-19 vaccination: No - Review of Systems Constitutional: No Fever, No Chills Eyes: No Symptoms Ears, Nose, & Throat: No Symptoms Respiratory: Dyspnea, No Cough Cardiac: Chest Pain, No Edema, No Syncope Abdominal/Gastrointestinal: Abdominal Pain, Nausea, Vomiting, No Diarrhea Genitourinary Symptoms: No Dysuria Musculoskeletal: No Back Pain, No Neck Pain Skin: No Symptoms, No Rash Neurological: No Dizziness, No Focal Weakness, No Sensory Changes Psychological: No Symptoms Endocrine: No Symptoms Hematologic/Lymphatic: No Symptoms Immunological/Allergic: No Symptoms All Other Systems: Reviewed and Negative - Past Medical History Pertinent Past Medical History: Yes Neurological History: Migraines ENT History: No Pertinent History Cardiac History: Hypertension Respiratory History: No Pertinent History Endocrine Medical History: Hypoglycemia Musculoskeletal History: Rheumatoid Arthritis, Other GI Medical History: GERD, Other History: No Pertinent History Psycho-Social History: Anxiety, Depression Female Reproductive Disorders: No Pertinent History Other Medical History: PT. HAD GASTRIC BYPASS 2013. reactive hypoglycemic diabetic. GOUT - Past Surgical History Past Surgical History: Yes Neuro Surgical History: No Pertinent History Cardiac: No Pertinent History Respiratory: No Pertinent History Gastrointestinal: Cholecystectomy, Other Genitourinary: No Pertinent History Musculoskeletal: Orthopedic Surgery Female Surgical History: Hysterectomy, Section Other Surgical History: , gastric bipass Jul, RFA - Social History Smoking Status: Never smoker Exposure to second hand smoke: Yes Drug Use: none Patient Lives Alone: No - Female History Hx Last Menstrual Period: hysterectomy Hx Now: No - Nursing Vital Signs Nursing Vital Signs: Initial Vital Signs Temperature 97.5 F 04/10/23 11:33 Pulse Rate 107 H 04/10/23 11:33 Respiratory Rate 20 04/10/23 11:33 Blood Pressure 99/63 04/10/23 11:33 O2 Sat by Pulse Oximetry 92 L 04/10/23 11:33 Pain Scale Pain Intensity 0 - Physical Exam General Appearance: no apparent distress, alert Eye Exam: PERRL/EOMI, eyes nml inspection Ears, Nose, Throat Exam: normal ENT inspection, TMs normal, pharynx normal, moist mucous membranes Neck Exam: normal inspection, non-tender, supple, full range of motion Respiratory Exam: normal breath sounds, lungs clear, No respiratory distress Cardiovascular Exam: regular rate/rhythm, normal heart sounds, normal peripheral pulses Gastrointestinal/Abdomen Exam: soft, normal bowel sounds, tenderness (mild), No mass Pelvic Exam: deferred Rectal Exam: deferred Back Exam: normal inspection, normal range of motion, No CVA tenderness, No vertebral tenderness Extremity Exam: normal inspection, normal range of motion, pelvis stable Neurologic Exam: alert, oriented x 3, cooperative, normal mood/affect, nml cerebellar function, nml station & gait, sensation nml, No motor deficits Skin Exam: normal color, warm, dry, No rash Lymphatic Exam: No adenopathy SpO2 Interpretation: borderline oxygenation SpO2: 92 O2 Delivery: Room Air - Course Nursing assessment & vital signs reviewed: Yes EKG Interpreted by Me: Sinus Tach, Right [place] Deviation, NORMAL QRS, Non- specific ST Changes - CT Exams Abdomen/Pelvis CT Interpretation: Tele-radiologist Report, Other (no sign of obs or leak; renl cyst,lipoma, ) Chest CT Interpretation: Tele-radiologist Report, Other (DARBY nodules, post surg changes; pericardial fluid) Ordered Tests: Active Orders 24 hr Category Date Time Status EKG-ER Only STAT Care 04/10/23 12:51 Active IV Insertion STAT Care 04/10/23 12:51 Active ABDOMEN AND PELVIS W/0 CONTRAS [CT] Stat Exams 04/10/23 12:52 Completed CHEST WITHOUT CONTRAST [CT] Stat Exams 04/10/23 12:54 Completed AMYLASE Stat Lab 04/10/23 12:52 Completed CBC W DIFF Stat Lab 04/10/23 12:52 Completed CK-Creatinine Phosphokinase Stat Lab 04/10/23 12:52 Completed CMP Stat Lab 04/10/23 12:52 Completed D-DIMER QUANTITATIVE Stat Lab 04/10/23 12:52 Completed HCG QUALITATIVE, SERUM Stat Lab 04/10/23 12:52 Completed LIPASE Stat Lab 04/10/23 12:52 Completed Lactic Acid Stat Lab 04/10/23 12:51 Completed NT PRO BNPII Stat Lab 04/10/23 12:52 Completed TROPONIN Q4H Lab 04/10/23 12:52 Completed TROPONIN Q4H Lab 04/10/23 17:05 Completed TROPONIN Q4H Lab 04/10/23 21:00 Ordered UA W/RFX UR CULTURE Stat Lab 04/10/23 16:40 Completed Medication Summary Discontinued Medications Generic Name Dose Route Start Last Admin Trade Name Freq PRN Reason Stop Dose Admin Al Hydrox/Mg Hydrox/Simethicone Confirm 04/10/23 12:47 Mag Hydrox/Al Hydrox/Simeth 30 Ml Udcup Administered 04/10/23 12:48 Dose 30 ml .ROUTE .STK-MED ONE Diphenhydramine HCl 25 mg 04/10/23 12:51 04/10/23 13:30 Diphenhydramine Hcl 50 Mg/Ml Vial IV 04/10/23 12:52 25 mg STAT ONE Administration Diphenhydramine HCl Confirm 04/10/23 13:28 Diphenhydramine Hcl 50 Mg/Ml Vial Administered 04/10/23 13:29 Dose 50 mg .ROUTE .STK-MED ONE Sodium Chloride 1,000 mls @ 999 mls/hr 04/10/23 12:51 04/10/23 14:37 Sodium Chloride 0.9% 1000 Ml IV 04/10/23 13:51 Infused .Q1H1M STA Infusion Sodium Chloride Confirm 04/10/23 13:28 Sodium Chloride 0.9% 1000 Ml Administered 04/10/23 13:29 Dose 1,000 mls @ ud .ROUTE .STK-MED ONE Lidocaine HCl Confirm 04/10/23 12:47 Lidocaine Hcl 2% Viscous 15 Ml Udcup Administered 04/10/23 12:48 Dose 15 ml .ROUTE .STK-MED ONE Magnesium Hydroxide 45 ml 04/10/23 12:46 04/10/23 12:48 Mag Hydrx/Alum Hyd/Simeth/Lido 45 Ml Bottle PO 04/10/23 12:47 45 ml STAT ONE Administration Metoclopramide HCl 10 mg 04/10/23 12:51 04/10/23 13:30 Metoclopramide Hcl 10 Mg/2 Ml Vial IV 04/10/23 12:52 10 mg STAT ONE Administration Metoclopramide HCl Confirm 04/10/23 13:28 Metoclopramide Hcl 10 Mg/2 Ml Vial Administered 04/10/23 13:29 Dose 10 mg .ROUTE .STK-MED ONE Ondansetron HCl 4 mg 04/10/23 12:51 04/10/23 13:29 Ondansetron Hcl 4 Mg/2 Ml Vial IV 04/10/23 12:52 4 mg STAT ONE Administration Ondansetron HCl Confirm 04/10/23 13:28 Ondansetron Hcl 4 Mg/2 Ml Vial Administered 04/10/23 13:29 Dose 4 mg .ROUTE .STK-MED ONE Lab/Rad Data: Laboratory Result Diagrams 04/10/23 12:52 04/10/23 12:52 Laboratory Results 04/10/23 04/10/23 04/10/23 Range/Units 17:05 16:40 12:52 WBC (4.0-10.5) x10^3/uL RBC (4.1-5.4) x10^6/uL Hgb (12.0-16.0) g/dL Hct (35-47) % MCV (78-100) fL MCH (26-32) pg MCHC (32-36) g/dL RDW (11.5-14.0) % Plt Count (150-450) x10^3/uL MPV (7.5-11.0) fL Gran % (36.0-66.0) % Immature Gran % (Auto) (0.00-0.4) % Nucleat RBC Rel Count (0.00-0.1) % Eos # (Auto) (0-0.5) x10^3/uL Immature Gran # (Auto) (0.00-0.03) x10^3u/L Absolute Lymphs (auto) (1.0-4.6) x10^3/uL Absolute Monos (auto) (0.0-1.3) x10^3/uL Absolute Nucleated RBC (0.00-0.01) x10^3u/L Lymphocytes % (24.0-44.0) % Monocytes % (0.0-12.0) % Eosinophils % (0.00-5.0) % Basophils % (0.0-0.4) % Absolute Granulocytes (1.4-6.9) x10^3/uL Basophils # (0-0.4) x10^3/uL D-Dimer (0.0-0.50) mg/L Sodium (137-145) mmol/L Potassium (3.5-5.1) mmol/L Chloride (98-107) mmol/L Carbon Dioxide (22-30) mmol/L Anion Gap (5-15) MEQ/L BUN (7-17) mg/dL Creatinine (0.52-1.04) mg/dL Estimated GFR ML/MIN Glucose (74-106) mg/dL Lactic Acid (0.4-2.0) Calcium (8.4-10.2) mg/dL Total Bilirubin (0.2-1.3) mg/dL AST (14-36) U/L ALT (0-35) U/L Alkaline Phosphatase (38-126) U/L Creatine Kinase (30-135) U/L Troponin I < 0.012 (0.000-0.034) ng/mL NT-Pro-B Natriuret Pep (<300) pg/mL Serum Total Protein (6.3-8.2) g/dL Albumin (3.5-5.0) g/dL Amylase (30-110) U/L Lipase (23-300) U/L Serum HCG, Qual NEGATIVE (NEGATIVE) Urine Color Yellow (Yellow) Urine Appearance Clear (Clear) Urine pH 5.5 (4.6-8.0) Ur Specific [place] 1.015 (1.005-1.030) Urine Protein Negative (Negative) Urine Glucose (UA) Negative (Negative) mg/dL Urine Ketones Trace A (Negative) Urine Blood Negative (Negative) Urine Nitrite Negative (Negative) Urine Bilirubin Negative (Negative) Urine Urobilinogen 0.2 (0.2) mg/dL Ur Leukocyte Esterase Negative (Negative) U Hyaline Cast (Auto) NONE SEEN (0-2) /LPF Urine Microscopic RBC 0-2 (0-5) /HPF Urine Microscopic WBC 0-2 (0-5) /HPF Ur Epithelial Cells None Seen (None Seen) /HPF Urine Bacteria None Seen (None Seen) /HPF Urine Culture Reflexed NO (NO) 04/10/23 04/10/23 04/10/23 Range/Units 12:52 12:52 12:52 WBC (4.0-10.5) x10^3/uL RBC (4.1-5.4) x10^6/uL Hgb (12.0-16.0) g/dL Hct (35-47) % MCV (78-100) fL MCH (26-32) pg MCHC (32-36) g/dL RDW (11.5-14.0) % Plt Count (150-450) x10^3/uL MPV (7.5-11.0) fL Gran % (36.0-66.0) % Immature Gran % (Auto) (0.00-0.4) % Nucleat RBC Rel Count (0.00-0.1) % Eos # (Auto) (0-0.5) x10^3/uL Immature Gran # (Auto) (0.00-0.03) x10^3u/L Absolute Lymphs (auto) (1.0-4.6) x10^3/uL Absolute Monos (auto) (0.0-1.3) x10^3/uL Absolute Nucleated RBC (0.00-0.01) x10^3u/L Lymphocytes % (24.0-44.0) % Monocytes % (0.0-12.0) % Eosinophils % (0.00-5.0) % Basophils % (0.0-0.4) % Absolute Granulocytes (1.4-6.9) x10^3/uL Basophils # (0-0.4) x10^3/uL D-Dimer 0.28 (0.0-0.50) mg/L Sodium 137 (137-145) mmol/L Potassium 4.4 (3.5-5.1) mmol/L Chloride 98 (98-107) mmol/L Carbon Dioxide 32 H (22-30) mmol/L Anion Gap 11.4 (5-15) MEQ/L BUN 14 (7-17) mg/dL Creatinine 1.06 H (0.52-1.04) mg/dL Estimated GFR 58.6 ML/MIN Glucose 80 (74-106) mg/dL Lactic Acid (0.4-2.0) Calcium 10.1 (8.4-10.2) mg/dL Total Bilirubin 0.30 (0.2-1.3) mg/dL AST 29 (14-36) U/L ALT 83 H (0-35) U/L Alkaline Phosphatase 109 (38-126) U/L Creatine Kinase 38 (30-135) U/L Troponin I < 0.012 (0.000-0.034) ng/mL NT-Pro-B Natriuret Pep < 20.0 (<300) pg/mL Serum Total Protein 7.0 (6.3-8.2) g/dL Albumin 4.7 (3.5-5.0) g/dL Amylase 62 (30-110) U/L Lipase 53 (23-300) U/L Serum HCG, Qual (NEGATIVE) Urine Color (Yellow) Urine Appearance (Clear) Urine pH (4.6-8.0) Ur Specific [place] (1.005-1.030) Urine Protein (Negative) Urine Glucose (UA) (Negative) mg/dL Urine Ketones (Negative) Urine Blood (Negative) Urine Nitrite (Negative) Urine Bilirubin (Negative) Urine Urobilinogen (0.2) mg/dL Ur Leukocyte Esterase (Negative) U Hyaline Cast (Auto) (0-2) /LPF Urine Microscopic RBC (0-5) /HPF Urine Microscopic WBC (0-5) /HPF Ur Epithelial Cells (None Seen) /HPF Urine Bacteria (None Seen) /HPF Urine Culture Reflexed (NO) 04/10/23 04/10/23 Range/Units 12:52 12:51 WBC 6.8 (4.0-10.5) x10^3/uL RBC 4.15 (4.1-5.4) x10^6/uL Hgb 12.8 (12.0-16.0) g/dL Hct 39.3 (35-47) % MCV 94.7 (78-100) fL MCH 30.8 (26-32) pg MCHC 32.6 (32-36) g/dL RDW 12.2 (11.5-14.0) % Plt Count 208 (150-450) x10^3/uL MPV 10.8 (7.5-11.0) fL Gran % 61.7 (36.0-66.0) % Immature Gran % (Auto) 0.1 (0.00-0.4) % Nucleat RBC Rel Count 0.0 (0.00-0.1) % Eos # (Auto) 0.15 (0-0.5) x10^3/uL Immature Gran # (Auto) 0.01 (0.00-0.03) x10^3u/L Absolute Lymphs (auto) 1.84 (1.0-4.6) x10^3/uL Absolute Monos (auto) 0.59 (0.0-1.3) x10^3/uL Absolute Nucleated RBC 0.00 (0.00-0.01) x10^3u/L Lymphocytes % 27.0 (24.0-44.0) % Monocytes % 8.7 (0.0-12.0) % Eosinophils % 2.2 (0.00-5.0) % Basophils % 0.3 (0.0-0.4) % Absolute Granulocytes 4.21 (1.4-6.9) x10^3/uL Basophils # 0.02 (0-0.4) x10^3/uL D-Dimer (0.0-0.50) mg/L Sodium (137-145) mmol/L Potassium (3.5-5.1) mmol/L Chloride (98-107) mmol/L Carbon Dioxide (22-30) mmol/L Anion Gap (5-15) MEQ/L BUN (7-17) mg/dL Creatinine (0.52-1.04) mg/dL Estimated GFR ML/MIN Glucose (74-106) mg/dL Lactic Acid 0.9 (0.4-2.0) Calcium (8.4-10.2) mg/dL Total Bilirubin (0.2-1.3) mg/dL AST (14-36) U/L ALT (0-35) U/L Alkaline Phosphatase (38-126) U/L Creatine Kinase (30-135) U/L Troponin I (0.000-0.034) ng/mL NT-Pro-B Natriuret Pep (<300) pg/mL Serum Total Protein (6.3-8.2) g/dL Albumin (3.5-5.0) g/dL Amylase (30-110) U/L Lipase (23-300) U/L Serum HCG, Qual (NEGATIVE) Urine Color (Yellow) Urine Appearance (Clear) Urine pH (4.6-8.0) Ur Specific [place] (1.005-1.030) Urine Protein (Negative) Urine Glucose (UA) (Negative) mg/dL Urine Ketones (Negative) Urine Blood (Negative) Urine Nitrite (Negative) Urine Bilirubin (Negative) Urine Urobilinogen (0.2) mg/dL Ur Leukocyte Esterase (Negative) U Hyaline Cast (Auto) (0-2) /LPF Urine Microscopic RBC (0-5) /HPF Urine Microscopic WBC (0-5) /HPF Ur Epithelial Cells (None Seen) /HPF Urine Bacteria (None Seen) /HPF Urine Culture Reflexed (NO) - Progress Progress: improved, re-examined Progress Note: 04/10/23 18:16 discussed results with pt and sister and that undetected pathology could still be evolving including cardiac. They wish to decline hospitalization for furhter w/u and IVF at this time and pursue further w/u with PMD/scoping outpt instead and will go on clear liquids. they have the capacity to make this choice. Counseled pt/family regarding: lab results, diagnosis, need for follow-up, rad results Medical Desision Making - Independent Historian Additional History obtained from: Family - Diagnostic Testing Diagnostic test were ordered, analyzed, and reviewed by me: Yes Radiological Interpretation: Teleradiologist Report - Risk of complications The pt has a mod risk of morbidity or mortality based on: Need for prescription drug management The pt has a high risk of morbidity or mortality based on: Decision regarding hospitilization or escalation of hosp level of care - Departure Departure Disposition: Home Clinical Impression: Old L1 comp fx, Renal cyst, Chest pain, reflux espoagitis SP RNY Condition: Good Critical Care Time: No Referrals: SAMANTHA HERMAN MD [Primary Care Provider] - Follow up/PCP as directed Instructions: Chest Pain (DC), Esophagitis Additional Instructions: followup with your Dr.s as planned Tuesday for furhter working and possible scoping. eventually a GI referral in the termite treater helper. Return meantime if unable to keep fluids down - try clear liquids mean time. Retuyrn if chest pain or other concerns as cardiac is still possible as we discussed. stop the xaniflex for now while taking the pepcid as they can interact. Prescriptions: Famotidine 20 mg [Pepcid 20 MG] 20 mg PO BID #30 tablet
[2023-04-10] MEDS ORDERED: Zofran 4 MG/2 ML VIAL IV ONE (12:51)
[2023-04-10] MEDS ORDERED: BENADRYL 50 MG/ML IV ONE (12:51)
[2023-04-10] MEDS ORDERED: Reglan 10 MG/2 ML IV ONE (12:51)
[2023-04-10] MEDS ORDERED: Sodium Chloride 0.9% 1000 ML 1,000 ML IV STA (12:51)
[2023-04-10 13:06] LABS: Absolute Neutrophil Ct (ANC) 4.21 x10^3/uL (1.4-6.9); BASOPHIL % 0.3 % (0.0-0.4); Basophil (Absolute #) 0.02 x10^3/uL (0-0.4); Eosinophil % 2.2 % (0.00-5.0); Eosinophil (Absolute #) 0.15 x10^3/uL (0-0.5); Hematocrit 39.3 % (35-47); Hemoglobin 12.8 g/dL (12.0-16.0); IMMATURE GRAN # 0.01 x10^3u/L (0.00-0.03); IMMATURE GRAN % 0.1 % (0.00-0.4); Lymphocyte (Absolute #) 1.84 x10^3/uL (1.0-4.6); Mean Cell Volume 94.7 fL (78-100); Mean Corpuscular Hemoglobin 30.8 pg (26-32); Mean Corpuscular Hgb Concent. 32.6 g/dL (32-36); Mean Platelet Volume 10.8 fL (7.5-11.0); Monocyte (Absolute #) 0.59 x10^3/uL (0.0-1.3); Monocytes % 8.7 % (0.0-12.0); Neutrophil % 61.7 % (36.0-66.0); Platelet Count 208 x10^3/uL (150-450); Red Blood Count 4.15 x10^6/uL (4.1-5.4); Red Cell Distribution Width 12.2 % (11.5-14.0); White Blood Count 6.8 x10^3/uL (4.0-10.5)
[2023-04-10 13:19] LABS: HCG SERUM TEST NEGATIVE (NEGATIVE)
[2023-04-10] MEDS ORDERED: Sodium Chloride 0.9% 1000 ML 1,000 ML ONE (13:28)
[2023-04-10] MEDS ORDERED: Zofran 4 MG/2 ML VIAL ONE (13:28)
[2023-04-10] MEDS ORDERED: BENADRYL 50 MG/ML ONE (13:28)
[2023-04-10] MEDS ORDERED: Reglan 10 MG/2 ML ONE (13:28)
[2023-04-10 13:29] LABS: ALBUMIN 4.7 g/dL (3.5-5.0); ALKALINE PHOSPHATASE 109 U/L (38-126); AMYLASE 62 U/L (30-110); ANION GAP 11.4 MEQ/L (5-15); BLOOD UREA NITROGEN 14 mg/dL (7-17); CHLORIDE 98 mmol/L (98-107); CK-Creatinine Phosphokinase 38 U/L (30-135); Calcium 10.1 mg/dL (8.4-10.2); Carbon Dioxide 32 mmol/L (22-30); Creatinine 1 1.06 mg/dL (0.52-1.04); EST GLOMERULAR FILTRATION RATE 58.6 ML/MIN; Glucose 80 mg/dL (74-106); LIPASE 53 U/L (23-300); NT PRO BNPII < 20.0 pg/mL (<300); Potassium 4.4 mmol/L (3.5-5.1); SGOT/AST 29 U/L (14-36); SGPT/ALT 83 U/L (0-35); SODIUM 137 mmol/L (137-145)
--- NOTE | 2023-04-10 14:14 | XRAY ---
CLINICAL HISTORY:abd pain SP RnY COMPARISON:None TECHNIQUE:Multiplanar non contrast CT abdomen performed without contrast. CTDI 10.36, DLP 700.96 FINDINGS: There are changes of gastric by pass surgery, no evidence of surrounding leak or pneumoperitoneum. The gastrojejunostomy site is collapsed with no signs of obstruction. For further evaluation of suture line dehiscences or afferent limb syndome a post contrast dynamic fluoroscopy or CT evaluation advised for further evaluation. In left retroperitoneum, anterior para renal region an area of fat density is noted measuring 1.5 x 2.4 cm. This is a non specific finding, appears indolent differential could be fat phlegmon secondary to prior insult versus a small lipoma or lymphocele, if concerning MRI can help in further characterization, by current study, this lesion has no obstructing or mass affect on surrounding structures. Status post cholecystectomy clear GB fossa. Liver is normal in size with normal attenuation. No focal or diffuse parenchymal abnormality. Non dilated biliary tree. Pancreas, both adrenal glands appear unremarkable within limitations of non enhanced study. A 0.5 cm high density cyst seen arising from lower pole of right kidney. Otherwise unremarkable both kidney with no stone or back pressure. Spleen shows calcific foci ? granulomas, otherwise spleen appears unremarkable. Scattered high density material noted in the bowel loops, in a post operative patient scattered blood densities cannot be entirely ruled out, the other possibilities could be high density contrast from prior study. Bowel loops are otherwise mainly collapsed. No pneumoperitoneum, no fluid collections noted. Urinary bladder is optimally distended with no stones. Tiny 0.3 cm wide fat containing umbilical hernia, for clinical correlation. Lung bases are clear except minimal bibasal dependent atelectasis. Bones show spondylodegenerative changes, osteopenia and anterior wedge compression fracture of L1 with no retropulsion, mostly subacute to chronic. IMPRESSION: By present limited plain study, no evidence of gastric by pass site leakage or obstruction. For further evaluation of suture line dehiscences or afferent limb syndome a post contrast dynamic fluoroscopy or CT evaluation advised for further evaluation. The bypassed loop appears slightly distended. Retroperitoneal left anterior pararenal fat attenuation lesion. This is a non specific finding, appears indolent differential could be fat phlegmon secondary to prior insult versus a small lipoma or lymphocele, if concerning MRI can help in further characterization, by current study, this lesion has no obstructing or mass affect on surrounding structures. Incidental note of high density tiny right renal cyst, splenic calcifications, L1 anterior wedge compression fracture and non-specific high density material in bowel. Clinical correlation recommended for further evaluation. Electronically Signed by: Faye Turcios MD. (04/10/2023 13:14:18 SPORTS CLERK)
--- NOTE | 2023-04-10 14:25 | XRAY ---
CLINICAL HISTORY:chest pain with swallowing COMPARISON:None TECHNIQUE:Multiplanar non contrast CT chest performed. CTDI 10.36, DLP 700.96 FINDINGS: Small amount of pericardial fluid seen anteriorly, otherwise heart is normal in size no evidence of cardiac temponade. In lower posterior mediastinum, right paraesophageal location high density material mostly from prior surgery, small hiatus hernia, no distention or obstruction at GE junction. No pneumomediastinum. In lungs left upper lobe posterior segment basal region a 0.7 cm calcified granuloma adjacent tiny fibrotic nodules 2-3 mm in size noted mostly sequela of prior infective insult. No other major collapse / consolidation noted. No encysted or free pleural effusion seen. No pneumothorax. No chest wall mass lesion. No thoracic lymphadenopathy. Air way is mainly patent. There is irregularity in the anterior ribs bilaterally at multiple levels this could be sequela of prior healing secondary to a traumatic event or non-specific finding, mainly no acute osseous abnormality. Spine shows degenerative changes. IMPRESSION: Few fibrotic benign looking nodules in left upper lobe posterior segment basal region. Post surgical morphology posterior lower mediastinum right para esophageal location with no complications. Small amount of pericardial fluid seen anteriorly, otherwise heart is normal in size no evidence of cardiac temponade. Otherwise unremarkable CT chest. Electronically Signed by: Faye Turcios MD. (04/10/2023 13:23:53 EXECUTIVE COMMUNICATIONS MANAGER)
[2023-04-10 16:57] LABS: Appearance Clear (Clear); Bacteria None Seen /HPF (None Seen); Bilirubin Negative (Negative); Blood Negative (Negative); Epithelial Cells None Seen /HPF (None Seen); Glucose, Urine Negative (Negative); Hyaline Casts NONE SEEN /LPF (0-2); Ketones Trace (Negative); Leukocyte Esterase Negative (Negative); Nitrite Negative (Negative); Ph 5.5 (4.6-8.0); Protein,Urine Dip Negative (Negative); RBC 0-2 /HPF (0-5); Specific Gravity 1.015 (1.005-1.030); Urobilinogen 0.2 mg/dL (0.2); WBC 0-2 /HPF (0-5)
[2023-04-10 17:08] LABS: ADD URINE CULTURE? NO (NO)
[2023-04-10 17:34] VITALS: BP 113/72; PULSE 88
[2023-04-10] MEDS ORDERED: Pepcid 20 MG VIAL IV ONE ×2 (18:15→18:18)
[2023-04-10] MEDS ORDERED: Protonix 40MG Tablet PO ONE (18:16)
[2023-04-10] MEDS ORDERED: Protonix 40MG Tablet ONE (18:19)
[2023-04-10 18:23] VITALS: RESP 22
[2023-04-10 18:28] VITALS: O2SAT 92
== END 2023-04-10 18:36 | disposition home or self-care (01) ==
LOC: ED 12:14
DX: K21.00 Gastro-esophageal reflux disease with esophagitis, without bleeding (principal); R07.9 Chest pain, unspecified; N28.1 Cyst of kidney, acquired; S32.010D Wedge compression fracture of first lumbar vertebra, subsequent encounter for fracture with routine healing; R11.10 Vomiting, unspecified; I10 Essential (primary) hypertension; Z79.899 Other long term (current) drug therapy; Z28.310 Unvaccinated for COVID-19
CPT/HCPCS: 36000; 36415; 71250; 74176; 80053; 81001; 82150; 82550; 83605; 83690; 83880; 84484; 84703; 85025; 85379; 93005; 96360; 96374; 96375; 99284; J1200; J2405; A9270-GY

== ENCOUNTER 2023-04-19 05:50 | Day surgery (SDC) | payer MEDICARE ==
[2023-04-19] MEDS ORDERED: Lactated Ringers 1,000 ML IV SCH (06:00)
[2023-04-19 06:31] VITALS: RESP 16
[2023-04-19] MEDS ORDERED: Xylocaine-Mpf 2% 5 Ml Vial ONE (07:26)
[2023-04-19] MEDS ORDERED: DIPRIVAN 200 MG/20 ML IV ONE (07:26)
[2023-04-19] MEDS ORDERED: Versed 2 MG/2 ML Injection ONE (07:31)
[2023-04-19 07:56] VITALS: TEMP 97.3
[2023-04-19 08:05] VITALS: BP 122/87; PULSE 105; O2SAT 95
--- NOTE | 2023-04-19 14:55 | OP ---
SURGERY DATE/TIME: 04/19/2023 PREOPERATIVE DIAGNOSIS: Gastroesophageal reflux. POSTOPERATIVE DIAGNOSIS: Status post Vitaly-en-Y procedure otherwise no evidence of ulcers. PROCEDURE: Esophagogastroduodenoscopy. SURGEON: Dr. Moore. ANESTHESIA: Medications were given by the anesthesia department. BRIEF HISTORY: The patient is a 47-year-old white female presents now for gastroesophageal reflux disease symptoms. The patient has been having problems for the past few weeks. The patient was placed on Reglan by her primary care physician and has improved her symptoms overall. It was noted that the patient also has a history of Vitaly-en-Y procedure for weight loss and she is currently also taking Mounjaro which she has been on for the past approximately one year. The patient was described the risks of the procedure including risk of perforation, phlebitis, untoward reaction to medication, bleeding, missed lesions. The patient verbalized her understanding and desired to have the procedure performed. DESCRIPTION OF PROCEDURE: The patient was given the medications by the anesthesia department. She had continuous pulse oximetry, ECG monitoring and intermittent blood pressure monitoring during the examination. She was placed in the left lateral decubitus position. A bite block was placed and the flexible Olympus gastroscope was used to intubate the oropharynx. A view of the larynx was obtained and was normal. The scope was easily introduced in the esophagus which appeared to be essentially normal throughout its length. The gastric remnant was entered and down this we passed the scope into what appeared to be jejunum. There were no ulcers noted anywhere along the length of the investigated portion of the GI tract. The scope was withdrawn from the stomach and withdrawn from the patient and the patient was awaken and taken back to recovery in good condition.
== END 2023-04-19 08:18 | disposition home or self-care (01) ==
LOC: SDC 05:50
PROVIDERS: ATTEND Family Medicine
DX: K21.9 Gastro-esophageal reflux disease without esophagitis (principal); Z98.84 Bariatric surgery status; E11.9 Type 2 diabetes mellitus without complications
CPT/HCPCS: 82947; J2250; J2704

== ENCOUNTER 2024-03-26 08:07 | Emergency (ER) | payer MEDICARE ==
[2024-03-26 08:22] VITALS: TEMP 97
--- NOTE | 2024-03-26 08:53 | ERPHSYRPT ---
- History of Present Illness Time Seen by Provider: 03/26/24 08:48 Source: patient Exam Limitations: clinical condition Patient Subjective Stated Complaint: pt here for pain to left ankle she states leg was asleep and when got up it gave way and she feel twisting ankle Triage Nursing Assessment: pt alert, walked in, resp easy, skin w/d/p.has swelling and bruising to left ankle . strong pedal pulse Timing/Duration: today Severity: mild Modifying Factors: Improves With: cold therapy Associated Symptoms: denies symptoms Allergies/Adverse Reactions: latex Allergy (Severe, Verified 03/26/24 08:15) Hives Sulfa (Sulfonamide Antibiotics) [Sulfa(Sulfonamide Antibiotics)] Allergy (Verified 03/26/24 08:15) PT STATES THIS AN ALLERGY BECAUSE OF EYE DROPS CAUSING IRRITATION-SHE HAS JUST TAKEN BACTRIM FOR UTI WITHOUT DIFFICULTY contrast dye Allergy (Severe, Uncoded 03/26/24 08:15) Swelling Home Medications: Mirtazapine [Remeron] 45 mg PO HS 12/05/13 [History] ALPRAZolam [Xanax] 1 mg PO QID 03/20/18 [History] Duloxetine HCl 30 mg [Cymbalta 30 MG Capsule] 30 mg PO BID 05/24/19 [History] Folic Acid 1 mg [Folate 1 mg] 1 mg PO DAILY 05/24/19 [History] Lisinopril 20 mg [Zestril 20 MG] 10 mg PO DAILY 05/24/19 [History] Trazodone HCl 50 mg [Desyrel 50 mg] 150 mg PO HS 05/24/19 [History] PANTOPRAZOLE 40 mg Tablet [Protonix 40MG Tablet] 40 mg PO BID 05/28/19 [History] ondansetron HCL [Zofran] 4 mg PO DAILY 03/04/21 [History] Bupropion HCl Xl 150 mg [Wellbutrin XL 150 MG] 150 mg PO DAILY 09/27/22 [History] Buspirone HCl 30 mg PO BID 09/27/22 [History] Colchicine 0.6 mg PO DAILY 09/27/22 [History] Ferrous Sulfate 325 mg [Feosol 325 mg] 325 mg PO BID 09/27/22 [History] Sertraline HCl [Zoloft] 100 mg PO DAILY 09/27/22 [History] Sucralfate 1 gm PO HS 09/27/22 [History] Tizanidine HCl [Zanaflex] 4 mg PO DAILY PRN PRN 09/27/22 [History] Albuterol 2.5 mg/3 ml Neb [Proventil 2.5 mg/3 ml Neb] 3 ml IH TIDPRN PRN 04/14/23 [History] Allopurinol 300 mg [Zyloprim 300 mg] 300 mg PO DAILY 04/14/23 [History] Docusate Sodium [Colace] 100 mg PO DAILY 04/14/23 [History] Meclizine HCl 25 mg [Antivert 25 mg] 25 mg PO TIDPRN PRN 04/14/23 [History] Metoclopramide HCl 10 mg [Reglan 10 MG] 10 mg PO DAILY 04/14/23 [History] Nystatin Powder 15 gm [Nystop Powder 15 gm] 1 applic TOP BID 04/14/23 [History] Pedi Mv No.226/Ferrous Sulfate [Flintstones with Extra Iron] 1 tab PO DAILY 04/14/23 [History] Promethazine HCl 1 tab PO TIDPRN PRN 04/14/23 [History] Sennosides [Senna] 1 tab PO DAILY 04/14/23 [History] Tirzepatide [Mounjaro] 10 mg SQ WEEKLY 04/14/23 [History] Hx Tetanus, Diphtheria Vaccination/Date Given: Yes Hx Influenza Vaccination/Date Given: No Hx Pneumococcal Vaccination/Date Given: No Immunizations Up to Date: Yes Travel Risk - International Travel Have you traveled outside of the country in past 3 weeks: No - Emerging Infectious Disease Are you exhibiting symptoms associated with any current EIDs: No - Review of Systems Eyes: No Symptoms Ears, Nose, & Throat: No Symptoms Respiratory: No Symptoms Cardiac: No Symptoms Abdominal/Gastrointestinal: No Symptoms Genitourinary Symptoms: No Symptoms Musculoskeletal: No Symptoms Skin: No Symptoms Neurological: No Symptoms Psychological: No Symptoms Endocrine: No Symptoms Hematologic/Lymphatic: No Symptoms Immunological/Allergic: No Symptoms - Past Medical History Pertinent Past Medical History: Yes Neurological History: Migraines ENT History: No Pertinent History Cardiac History: Hypertension Respiratory History: No Pertinent History Endocrine Medical History: Diabetes Type II, Hypoglycemia Musculoskeletal History: Rheumatoid Arthritis, Other GI Medical History: GERD, Other History: No Pertinent History Psycho-Social History: Anxiety, Depression Female Reproductive Disorders: No Pertinent History Other Medical History: PT. HAD GASTRIC BYPASS 2013. reactive hypoglycemic diabetic. GOUT - Past Surgical History Past Surgical History: Yes Neuro Surgical History: No Pertinent History Cardiac: No Pertinent History Respiratory: No Pertinent History Gastrointestinal: Cholecystectomy, Other Genitourinary: No Pertinent History Musculoskeletal: Orthopedic Surgery Female Surgical History: Hysterectomy, Section Other Surgical History: , gastric bipass Jul, RFA - Female History Hx Last Menstrual Period: N/A Hx Now: No - Social History Smoking Status: Never smoker Exposure to second hand smoke: Yes Drug Use: none Patient Lives Alone: No - Social Determinants of Health Will the patient participate in the screening: Declined to provide - Nursing Vital Signs Nursing Vital Signs: Initial Vital Signs Temperature 97.0 F 03/26/24 08:21 Pulse Rate 93 H 03/26/24 08:21 Respiratory Rate 16 03/26/24 08:21 Blood Pressure 114/76 03/26/24 08:21 O2 Sat by Pulse Oximetry 97 03/26/24 08:21 Pain Scale Pain Intensity 6 - Physical Exam General Appearance: no apparent distress Eye Exam: PERRL/EOMI Ears, Nose, Throat Exam: normal ENT inspection Neck Exam: normal inspection Respiratory Exam: normal breath sounds Cardiovascular Exam: regular rate/rhythm Gastrointestinal/Abdomen Exam: soft Extremity Exam: swelling (there is swelling of the left lateral ankle and foot and the patient has limited ROM of the foot and has no motor or sensory deficits distally ) Neurologic Exam: alert, oriented x 3 SpO2: 97 Ordered Tests: Active Orders 24 hr Category Date Time Status ANKLE (3 VIEWS) Stat Exams 03/26/24 08:47 Completed FOOT (MINIMUM 3 VIEWS) Stat Exams 03/26/24 08:47 Completed - Progress Progress Note: X-ray of the left ankle Reveals soft tissue swelling no evidence of fracture 03/26/24 10:25no 03/26/24 10:27 findings patient was informed of the need for splint and outpatient follow up Medical Desision Making - Discussion of managment Reviewed:: Need for additional workup Agreed on:: Treatment plan, need for follow-up - Departure Clinical Impression: Left ankle sprain Condition: Good Critical Care Time: No Additional Instructions: please ap[ply ice to the affected ankle and take tylenol and motrin
--- NOTE | 2024-03-26 09:33 | XRAY ---
Indication: Pain. Comparison: None 3 nonweightbearing views left foot demonstrates small posterior/plantar heel spurs and incidental tiny cuboid accessory ossicle. No other bony, articular, or soft tissue abnormalities.
--- NOTE | 2024-03-26 09:33 | XRAY ---
Indication: Pain. Comparison: None 3 view left ankle demonstrates small posterior/plantar heel spurs. No other bony, articular, or soft tissue abnormalities.
[2024-03-26 09:58] VITALS: RESP 18
[2024-03-26 10:31] VITALS: O2SAT 97
[2024-03-26 10:55] VITALS: BP 100/74; PULSE 76
== END 2024-03-26 10:55 | disposition home or self-care (01) ==
LOC: ED 08:07
DX: S93.402A Sprain of unspecified ligament of left ankle, initial encounter (principal); X50.0XXA Overexertion from strenuous movement or load, initial encounter; I10 Essential (primary) hypertension; E11.9 Type 2 diabetes mellitus without complications; Z79.85 Long-term (current) use of injectable non-insulin antidiabetic drugs; Z79.899 Other long term (current) drug therapy
CPT/HCPCS: 73610; 73630; 99283